=== PATIENT | male | born 1970 | race African-American/Black ===

== ENCOUNTER → 2016-05-25 | Outpatient (CLI) | payer OTHER ==
[2016-05-25 17:06] LABS: CH 29.6; CHCM 32.9; HCT 42.7 % (39.0-53.0); HDW 2.46; HGB 13.9 gm/dL (13.0-17.5); MCH 29.5 pg (25.0-35.0); MCHC 32.7 g/dL (31.0-37.0); MCV 90.3 fL (80.0-100.0); Mean Platelet Volume 8.4; RBC 4.73 m/uL (4.30-5.90); WBC 4.4 k/uL (3.8-10.6); WBC (Perox) 4.43
[2016-05-25 17:16] LABS: ALT 25 U/L (21-72); AST 20 U/L (17-59); Alkaline Phosphatase 68 U/L (38-126); Anion Gap 10 mmol/L; Blood Urea Nitrogen 20 mg/dL (9-20); Calcium 9.1 mg/dL (8.4-10.2); Carbon Dioxide 29 mmol/L (22-30); Chloride 102 mmol/L (98-107); Glucose 81 mg/dL (74-99); Non-African American GFR(MDRD) 59 (>60 ml/min/1.73 sqM); Potassium 4.4 mmol/L (3.5-5.1); Sodium 141 mmol/L (137-145); Total Bilirubin 0.8 mg/dL (0.2-1.3); Total Protein 7.5 g/dL (6.3-8.2)
[2016-05-25 18:04] LABS: Add Differential Manual Differential
[2016-05-25 18:07] LABS: Manual Review Performed; Nucleated Red Blood Cells 0 /100 WBC (0-0); Polychromasia Present; Total Cells Counted 100
[2016-05-28 14:22] LABS: LOG HIV Copies/mL <1.60 (<1.60)
== END ==
LOC: LABWHC1 16:23
PROVIDERS: ATTEND Internal Medicine Infectious Disease
DX: B20 Human immunodeficiency virus [HIV] disease (principal)
CPT/HCPCS: 36415; 80053; 85025; 86360; 87536

== ENCOUNTER → 2017-04-03 | Outpatient (CLI) | payer MEDICARE, OTHER ==
[2017-04-03 18:00] LABS: HCT 41.7 % (39.0-53.0); HGB 13.6 gm/dL (13.0-17.5); MCH 29.6 pg (25.0-35.0); MCHC 32.5 g/dL (31.0-37.0); Mean Platelet Volume 8.5; Platelet Count 192 k/uL (150-450); RBC 4.58 m/uL (4.30-5.90); RDW 12.8 % (11.5-15.5); WBC 3.9 k/uL (3.8-10.6)
[2017-04-03 18:16] LABS: ALT 31 U/L (21-72); AST 25 U/L (17-59); Albumin 4.4 g/dL (3.5-5.0); Alkaline Phosphatase 70 U/L (38-126); Anion Gap 12 mmol/L; Blood Urea Nitrogen 18 mg/dL (9-20); Calcium 9.5 mg/dL (8.4-10.2); Carbon Dioxide 29 mmol/L (22-30); Chloride 101 mmol/L (98-107); Cholesterol 181 mg/dL (<200); Glucose 91 mg/dL (74-99); HDL Cholesterol 45 mg/dL (40-60); LDL Cholesterol,Calculated 106 mg/dL (0-99); Magnesium 2.1 mg/dL (1.6-2.3); Phosphorus 3.8 mg/dL (2.5-4.5); Potassium 4.4 mmol/L (3.5-5.1); Sodium 142 mmol/L (137-145); Total Bilirubin 0.5 mg/dL (0.2-1.3); Total Protein 7.4 g/dL (6.3-8.2); Triglycerides 149 mg/dL (<150)
[2017-04-03 18:18] LABS: Partial Thromboplastin Time 24.8 sec (22.0-30.0); Prothrombin Time 9.8 sec (9.0-12.0)
[2017-04-04 01:16] LABS: Iron Saturation 25.67 (15.00-50.00)
[2017-04-04 01:30] LABS: Vitamin D 25 Hydroxy 17.2 ng/mL (30.0-100.0)
[2017-04-04 01:38] LABS: Folate, Serum 10.7 ng/mL
[2017-04-04 03:59] LABS: Hemoglobin A1C 5.6 % (4.0-6.0)
[2017-04-05 17:04] LABS: Zinc, Serum 62 ug/dL (60-130)
[2017-04-06 18:59] LABS: Selenium 119 mcg/L (63-160)
[2017-04-08 09:26] LABS: Vitamin A 55 ug/dL (38-106)
[2017-04-08 10:04] LABS: Vitamin B1 42 ug/L (38-122)
== END | disposition home or self-care (01) ==
LOC: LABWHC1 17:02
PROVIDERS: ATTEND Surgery Plastic and Reconstructive Surgery
DX: E21.1 Secondary hyperparathyroidism, not elsewhere classified (principal); E89.1 Postprocedural hypoinsulinemia; D50.9 Iron deficiency anemia, unspecified; K90.9 Intestinal malabsorption, unspecified; E44.0 Moderate protein-calorie malnutrition; E55.9 Vitamin D deficiency, unspecified; K74.1 Hepatic sclerosis; N19 Unspecified kidney failure; K50.90 Crohn's disease, unspecified, without complications; E66.01 Morbid (severe) obesity due to excess calories
CPT/HCPCS: 36415; 80053; 80061; 82306; 82525; 82607; 82728; 82746; 83036; 83540; 83550; 83735; 83970; 84100; 84134; 84255; 84425; 84443; 84590; 84630; 85027; 85610; 85730; 99211

== ENCOUNTER → 2017-04-03 | Outpatient (CLI) | payer MEDICARE, OTHER ==
[2017-04-03 16:35] VITALS: BP 125/71; PULSE 82; RESP 16; TEMP 97.8; BMI 45.8
--- NOTE | 2017-05-05 20:50 | P.PN ---
Subjective Progress Note Date: 04/03/17 DATE OF SERVICE: 04/03/2017 CHIEF COMPLAINT: Follow-up sleeve gastrectomy. HISTORY OF PRESENT ILLNESS: Yoseph Morillo is a 46-year-old gentleman who is status post sleeve gastrectomy from March 02 2015. He is over 2 years out. He has been placed on multiple medications to address his mood and depression and now has caused weight gain. He denies abdominal pain. He is very disappointed with his weight gain. He presents for further evaluation and management. He reports deviating from his bariatric diet. At his height of 5 foot 7 and a half inches, his ideal body weight is 158 pounds. His highest weight was 362 pounds. He now comes in weighing 296 pounds. He has gained 35 pounds in over 1 year. Lifetime weight loss decreased to 66 pounds. Percent excess weight loss of 32%. Initial body mass index was 55.7, and body mass index is down to 45.8. PAST MEDICAL HISTORY: 1. HIV positive. 2. Panniculitis. 3. Chronic constipation. 4. Asthma. 5. Neuropathy. 6. Chronic pain syndrome. 7. Hypertension. 8. Depression 9. History of Budd-Chiari syndrome. 10. Morbid obesity, initial BMI 56.0. 11. Gastroesophageal reflux disease PAST SURGICAL HISTORY: 1. Laparoscopic cholecystectomy. 2. Upper endoscopy. 3. History of back surgery. 4. Surgical history of the neck for Budd-Chiari syndrome. 5. Laparoscopic bilateral inguinal hernia repair. 6. Status post sleeve gastrectomy. 7. Upper endoscopy with balloon dilatation. MEDICATIONS: 1. Cardura. 2. Singulair. 3. Tramadol. 4. Amlodipine. 5. Flomax. 6. Lyrica. 7. Bactroban. 8. DuoNeb. 9. Flonase. 10. Colace. 11. Voltaren. 12. Citalopram. 13. Calcium. 14. Baclofen. 15. Ventolin inhaler. 16. Tylenol. 17. MiraLax. ALLERGIES: BACITRACIN, HYDROCORTISONE, NEOMYCIN, PENICILLIN, POLYMYCIN. SOCIAL HISTORY: Lifelong nontobacco user. FAMILY HISTORY: Denies any family history of gastrointestinal malignancies. Denies any lupus in his family. Denies any DVT or pulmonary embolism. REVIEW OF SYSTEMS: CONSTITUTIONAL: At his height of 5 foot 7 and a half inches, his ideal body weight is 158 pounds. His highest weight was 362 pounds. He now comes in weighing 296 pounds. He has gained 35 pounds in over 1 year. Lifetime weight loss decreased to 66 pounds. Percent excess weight loss of 32%. Initial body mass index was 55.7, and body mass index is down to 45.8. GASTROINTESTINAL: No dumping syndrome. Reports chronic constipation. MUSCULOSKELETAL: Moderate improvement of diffuse joint pain including back pain. CARDIOVASCULAR: No chest pain. No heart attacks. HEENT: Chronic sinusitis. No troubles with vision or hearing. ENDOCRINE: He has secondary hyperparathyroidism. No diabetes. No thyroid disorder. HEENT: Denies any active trouble with vision or hearing. RESPIRATORY: Has dyspnea on exertion. Also reports possible sleep apnea. No reports of using CPAP machine. NEURO: Also has history of neuropathy. Denies any stroke or seizure disorders. PSYCH: Has depression. Has chronic pain syndrome. HEMATOLOGIC: Denies any easy bruising or bleeding. Denies any DVTs or pulmonary embolisms. SKIN: Has chronic panniculitis. No skin cancer. PHYSICAL EXAM: VITAL SIGNS: 296 pounds. Body mass index 45.8. Vital Signs Temp 97.8 F 04/03/17 16:33 Pulse 82 04/03/17 16:33 Resp 16 04/03/17 16:33 BP 125/71 04/03/17 16:33 Pulse Ox ABDOMEN: Soft, nontender, without palpable incisional hernia. GENERAL: Well-developed male in no acute distress. MUSCULOSKELETAL: No clubbing, cyanosis, or edema. NEURO: No focal or lateralizing signs. Cranial nerves II through XII grossly intact. HEENT: No sclerae icterus. Extraocular movements are grossly intact. Moist buccal mucosa. NECK: Neck supple. No lymphadenopathy. CHEST: Normal respirations and bilateral excursions. CARDIOVASCULAR: Regular rate and rhythm. PSYCH: Appropriate affect. Alert and oriented to person, place and time. SKIN: Well perfused. Good skin turgor. Moderate skin elastosis along the arms and abdomen. ASSESSMENT: 1. Morbid obesity due to excess caloric intake. 2. Body mass index is reduced from 56 down to 45.8. 3. Status post sleeve gastrectomy. 4. Weight gain following bariatric procedure. 5. Osteomalacia of lower back. 6. Degenerative joint disease of the lower back. 7. Secondary hyperparathyroidism. 8. Sinusitis. 9. History of obstructive sleep apnea, improved. 10. Hypertensive heart disease without cardiomyopathy, improved. 11. Depressive disorder without acute psychosis, improved. 12. History of HIV positive serology. 13. Osteoarthritis of the lower back secondary to morbid obesity, improved. 14. Osteoarthritis of bilateral knees secondary to morbid obesity, improved. 15. Chronic obstructive pulmonary disease secondary to asthma. 16. Chronic constipation. 17. Skin elastosis. PLAN: 1. On review of his medications, lyrica and citalopram puts him at risk for weight gain. 2. Recommend 2 week high-protein low caloric diet of 800 kcal. 3. He is concerned about moderate skin elastosis however along the arms and breasts is cosmetic. 4. Additional MiraLAX written for chronic constipation. 5. Bariatric metabolic panel advised. 6. Follow-up in 2-3 weeks. Objective - Vital Signs Vital signs: Vital Signs Temp 97.8 F 04/03/17 16:33 Pulse 82 04/03/17 16:33 Resp 16 04/03/17 16:33 BP 125/71 04/03/17 16:33 Pulse Ox Intake & Output 04/02/17 04/03/17 04/03/17 18:59 06:59 18:59 Weight 134.717 kg
== END | disposition home or self-care (01) ==
LOC: BARWHC3 15:33
PROVIDERS: ATTEND Surgery Plastic and Reconstructive Surgery
DX: Z09 Encounter for follow-up examination after completed treatment for conditions other than malignant neoplasm (principal); E66.01 Morbid (severe) obesity due to excess calories; M83.9 Adult osteomalacia, unspecified; M19.90 Unspecified osteoarthritis, unspecified site; N25.81 Secondary hyperparathyroidism of renal origin; J32.9 Chronic sinusitis, unspecified; G47.33 Obstructive sleep apnea (adult) (pediatric); I11.9 Hypertensive heart disease without heart failure; F32.9 Major depressive disorder, single episode, unspecified; M17.0 Bilateral primary osteoarthritis of knee; J44.9 Chronic obstructive pulmonary disease, unspecified; K59.09 Other constipation; L57.8 Other skin changes due to chronic exposure to nonionizing radiation; M79.3 Panniculitis, unspecified; G62.9 Polyneuropathy, unspecified; G89.4 Chronic pain syndrome; K21.9 Gastro-esophageal reflux disease without esophagitis; Z79.891 Long term (current) use of opiate analgesic; Z79.899 Other long term (current) drug therapy; Z98.84 Bariatric surgery status; Z86.718 Personal history of other venous thrombosis and embolism; Z21 Asymptomatic human immunodeficiency virus [HIV] infection status; Z68.42 Body mass index [BMI] 45.0-49.9, adult; Z79.51 Long term (current) use of inhaled steroids; Z88.0 Allergy status to penicillin
CPT/HCPCS: 99211

== ENCOUNTER → 2017-04-17 | Outpatient (CLI) | payer MEDICARE, OTHER ==
[2017-04-17 15:21] VITALS: BP 125/71; PULSE 59; RESP 16; TEMP 98.3; BMI 45.4
--- NOTE | 2017-05-05 20:56 | P.PN ---
Subjective Progress Note Date: 04/17/17 DATE OF SERVICE: 04/17/2017 CHIEF COMPLAINT: Follow-up sleeve gastrectomy. HISTORY OF PRESENT ILLNESS: Yoseph Morillo is a 46-year-old gentleman who is status post sleeve gastrectomy from March 02 2015. He is over 2 years out. Since his follow-up 2 weeks ago, he was asked to start a 2 week high-protein low caloric diet. He comes in with barely 2 pound weight loss. No further reports of abdominal pain. No gastroesophageal reflux disease. At his height of 5 foot 7 and a half inches, his ideal body weight is 158 pounds. His highest weight was 362 pounds. He now comes in weighing 294 pounds. He has lost 2 pounds in 2 weeks. Lifetime weight loss 68 pounds. Percent excess weight loss of 33%. Initial body mass index was 55.7, and body mass index is down to 45.4. PAST MEDICAL HISTORY: 1. HIV positive. 2. Panniculitis. 3. Chronic constipation. 4. Asthma. 5. Neuropathy. 6. Chronic pain syndrome. 7. Hypertension. 8. Depression 9. History of Budd-Chiari syndrome. 10. Morbid obesity, initial BMI 56.0. 11. Gastroesophageal reflux disease PAST SURGICAL HISTORY: 1. Laparoscopic cholecystectomy. 2. Upper endoscopy. 3. History of back surgery. 4. Surgical history of the neck for Budd-Chiari syndrome. 5. Laparoscopic bilateral inguinal hernia repair. 6. Status post sleeve gastrectomy. 7. Upper endoscopy with balloon dilatation. MEDICATIONS: 1. Cardura. 2. Singulair. 3. Tramadol. 4. Amlodipine. 5. Flomax. 6. Lyrica. 7. Bactroban. 8. DuoNeb. 9. Flonase. 10. Colace. 11. Voltaren. 12. Citalopram. 13. Calcium. 14. Baclofen. 15. Ventolin inhaler. 16. Tylenol. 17. MiraLax. ALLERGIES: BACITRACIN, HYDROCORTISONE, NEOMYCIN, PENICILLIN, POLYMYCIN. SOCIAL HISTORY: Lifelong nontobacco user. FAMILY HISTORY: Denies any family history of gastrointestinal malignancies. Denies any lupus in his family. Denies any DVT or pulmonary embolism. REVIEW OF SYSTEMS: CONSTITUTIONAL: At his height of 5 foot 7 and a half inches, his ideal body weight is 158 pounds. His highest weight was 362 pounds. He now comes in weighing 296 pounds. He has gained 33 pounds in over 1 year. Lifetime weight loss decreased to 68 pounds. Percent excess weight loss of 33%. Initial body mass index was 55.7, and body mass index is down to 45.4. GASTROINTESTINAL: No dumping syndrome. Reports chronic constipation. MUSCULOSKELETAL: Moderate improvement of diffuse joint pain including back pain. CARDIOVASCULAR: No chest pain. No heart attacks. HEENT: Chronic sinusitis. No troubles with vision or hearing. ENDOCRINE: He has secondary hyperparathyroidism. No diabetes. No thyroid disorder. HEENT: Denies any active trouble with vision or hearing. RESPIRATORY: Has dyspnea on exertion. Also reports possible sleep apnea. No reports of using CPAP machine. NEURO: Also has history of neuropathy. Denies any stroke or seizure disorders. PSYCH: Has depression. Has chronic pain syndrome. HEMATOLOGIC: Denies any easy bruising or bleeding. Denies any DVTs or pulmonary embolisms. SKIN: Has chronic panniculitis. No skin cancer. PHYSICAL EXAM: VITAL SIGNS: 294 pounds. Body mass index 45.4. Vital Signs Temp 98.3 F 04/17/17 18:00 Pulse 59 L 04/17/17 18:00 Resp 16 04/17/17 18:00 BP 125/71 04/17/17 18:00 Pulse Ox ABDOMEN: Soft, nontender, without palpable incisional hernia. GENERAL: Well-developed male in no acute distress. MUSCULOSKELETAL: No clubbing, cyanosis, or edema. NEURO: No focal or lateralizing signs. Cranial nerves II through XII grossly intact. HEENT: No sclerae icterus. Extraocular movements are grossly intact. Moist buccal mucosa. NECK: Neck supple. No lymphadenopathy. CHEST: Normal respirations and bilateral excursions. CARDIOVASCULAR: Regular rate and rhythm. PSYCH: Appropriate affect. Alert and oriented to person, place and time. SKIN: Well perfused. Good skin turgor. Moderate skin elastosis along the arms and abdomen. Laboratory Last Values WBC 3.9 k/uL (3.8-10.6) 04/03/17 17:06 RBC 4.58 m/uL (4.30-5.90) 04/03/17 17:06 Hgb 13.6 gm/dL (13.0-17.5) 04/03/17 17:06 Hct 41.7 % (39.0-53.0) 04/03/17 17:06 MCV 91.0 fL (80.0-100.0) 04/03/17 17:06 MCH 29.6 pg (25.0-35.0) 04/03/17 17:06 MCHC 32.5 g/dL (31.0-37.0) 04/03/17 17:06 RDW 12.8 % (11.5-15.5) 04/03/17 17:06 Plt Count 192 k/uL (150-450) 04/03/17 17:06 PT 9.8 sec (9.0-12.0) 04/03/17 17:06 INR 1.0 (<1.2) 04/03/17 17:06 APTT 24.8 sec (22.0-30.0) 04/03/17 17:06 Sodium 142 mmol/L (137-145) 04/03/17 17:06 Potassium 4.4 mmol/L (3.5-5.1) 04/03/17 17:06 Chloride 101 mmol/L (98-107) 04/03/17 17:06 Carbon Dioxide 29 mmol/L (22-30) 04/03/17 17:06 Anion Gap 12 mmol/L 04/03/17 17:06 BUN 18 mg/dL (9-20) 04/03/17 17:06 Creatinine 1.30 mg/dL (0.66-1.25) H 04/03/17 17:06 Est GFR (MDRD) Af Amer >60 (>60 ml/min/1.73 sqM) 04/03/17 17:06 Est GFR (MDRD) Non-Af 59 (>60 ml/min/1.73 sqM) 04/03/17 17:06 Glucose 91 mg/dL (74-99) 04/03/17 17:[address] Glu mg/dL 114 04/03/17 17:06 Hemoglobin A1c 5.6 % (4.0-6.0) 04/03/17 17:06 Calcium 9.5 mg/dL (8.4-10.2) 04/03/17 17:06 Phosphorus 3.8 mg/dL (2.5-4.5) 04/03/17 17:06 Magnesium 2.1 mg/dL (1.6-2.3) 04/03/17 17:06 Iron 86 ug/dL (65-175) 04/03/17 17:06 TIBC 335 ug/dL (228-460) 04/03/17 17:06 Iron Saturation 25.67 (15.00-50.00) 04/03/17 17:06 Ferritin 166.3 ng/mL (22.0-322.0) 04/03/17 17:06 Total Bilirubin 0.5 mg/dL (0.2-1.3) 04/03/17 17:06 AST 25 U/L (17-59) 04/03/17 17:06 ALT 31 U/L (21-72) 04/03/17 17:06 Alkaline Phosphatase 70 U/L (38-126) 04/03/17 17:06 Total Protein 7.4 g/dL (6.3-8.2) 04/03/17 17:06 Albumin 4.4 g/dL (3.5-5.0) 04/03/17 17:06 Prealbumin 30.0 mg/dL (18.0-42.0) 04/03/17 17:06 Triglycerides 149 mg/dL (<150) 04/03/17 17:06 Cholesterol 181 mg/dL (<200) 04/03/17 17:06 LDL Cholesterol, Calc 106 mg/dL (0-99) H 04/03/17 17:06 HDL Cholesterol 45 mg/dL (40-60) 04/03/17 17:06 Vitamin A 55 ug/dL (38-106) 04/03/17 17:06 Vitamin B1 42 ug/L (38-122) 04/03/17 17:06 Vitamin B12 346.0 pg/mL (200.0-944.0) 04/03/17 17:06 Vitamin D 25-Hydroxy 17.2 ng/mL (30.0-100.0) L 04/03/17 17:06 Folate 10.7 ng/mL 04/03/17 17:06 TSH 1.790 mIU/L (0.465-4.680) 04/03/17 17:06 PTH Intact 71.0 pg/mL (14.0-72.0) 04/03/17 17:06 Copper 1064 ug/L (665-1480) 04/03/17 17:06 Selenium 119 mcg/L (63-160) 04/03/17 17:06 Zinc 62 ug/dL (60-130) 04/03/17 17:06 Low vitamin D. Creatinine elevated. ASSESSMENT: 1. Morbid obesity due to excess caloric intake. 2. Body mass index is reduced from 56 down to 45.4. 3. Status post sleeve gastrectomy. 4. Weight gain following bariatric procedure. 5. Osteomalacia of lower back. 6. Degenerative joint disease of the lower back. 7. Secondary hyperparathyroidism. 8. Sinusitis. 9. History of obstructive sleep apnea, improved. 10. Hypertensive heart disease without cardiomyopathy, improved. 11. Depressive disorder without acute psychosis, improved. 12. History of HIV positive serology. 13. Osteoarthritis of the lower back secondary to morbid obesity, improved. 14. Osteoarthritis of bilateral knees secondary to morbid obesity, improved. 15. Chronic obstructive pulmonary disease secondary to asthma. 16. Chronic constipation. 17. Skin elastosis. 18. Vitamin D deficiency. PLAN: 1. I have asked him to follow the diet plan as close as possible to achieve weight loss. 2. Bariatric last reviewed demonstrating vitamin D deficiency. Vitamin D supplement advised. 3. Recommend structure diet with bariatric dietitian. Objective - Vital Signs Vital signs: Vital Signs Temp 98.3 F 04/17/17 15:18 Pulse 59 L 04/17/17 15:18 Resp 16 04/17/17 15:18 BP 125/71 04/17/17 15:18 Pulse Ox Intake & Output 04/16/17 04/17/17 04/17/17 18:59 06:59 18:59 Weight 133.583 kg
== END | disposition home or self-care (01) ==
LOC: BARWHC3 14:46
PROVIDERS: ATTEND Surgery Plastic and Reconstructive Surgery
DX: E66.01 Morbid (severe) obesity due to excess calories (principal); M19.90 Unspecified osteoarthritis, unspecified site; N25.81 Secondary hyperparathyroidism of renal origin; J32.9 Chronic sinusitis, unspecified; I11.9 Hypertensive heart disease without heart failure; F32.9 Major depressive disorder, single episode, unspecified; J44.9 Chronic obstructive pulmonary disease, unspecified; K59.09 Other constipation; M17.0 Bilateral primary osteoarthritis of knee; E55.9 Vitamin D deficiency, unspecified; L57.8 Other skin changes due to chronic exposure to nonionizing radiation; Z87.09 Personal history of other diseases of the respiratory system; Z86.2 Personal history of diseases of the blood and blood-forming organs and certain disorders involving the immune mechanism; Z68.42 Body mass index [BMI] 45.0-49.9, adult; Z88.1 Allergy status to other antibiotic agents; Z88.0 Allergy status to penicillin; Z88.8 Allergy status to other drugs, medicaments and biological substances; Z79.899 Other long term (current) drug therapy; Z79.891 Long term (current) use of opiate analgesic; Z79.2 Long term (current) use of antibiotics; Z79.51 Long term (current) use of inhaled steroids; Z79.1 Long term (current) use of non-steroidal anti-inflammatories (NSAID); Z90.49 Acquired absence of other specified parts of digestive tract
CPT/HCPCS: 99211

== ENCOUNTER → 2017-05-15 | Outpatient (CLI) | payer MEDICARE, OTHER ==
[2017-05-15 16:58] VITALS: BP 131/78; PULSE 62; RESP 16; TEMP 98.4; BMI 46.0
--- NOTE | 2017-06-28 10:12 | P.PN ---
Subjective Progress Note Date: 05/15/17 DATE OF SERVICE: 05/15/2017 CHIEF COMPLAINT: Follow-up sleeve gastrectomy. HISTORY OF PRESENT ILLNESS: Yoseph Morillo is a 46-year-old gentleman who is status post sleeve gastrectomy from March 02 2015. He is over more than 2 years out. At his height of 5 foot 7 and a half inches, his ideal body weight is 158 pounds. His highest weight was 362 pounds. He now comes in weighing 298 pounds. He has gained 4 pounds in 1 month. Lifetime weight loss 64 pounds. Percent excess weight loss of 31%. Initial body mass index was 56.0 and body mass index is down to 46.0. Since his recent follow-up, he continues to gain weight. He still reports eating cakes and cookies. He also reports skipping meals. He has occasional epigastric abdominal pain including increased eructation. He has not been using his food diary journal. PAST MEDICAL HISTORY: 1. HIV positive. 2. Panniculitis. 3. Chronic constipation. 4. Asthma. 5. Neuropathy. 6. Chronic pain syndrome. 7. Hypertension. 8. Depression 9. History of Budd-Chiari syndrome. 10. Morbid obesity, initial BMI 56.0. 11. Gastroesophageal reflux disease 12. Obstructive sleep apnea PAST SURGICAL HISTORY: 1. Laparoscopic cholecystectomy. 2. Upper endoscopy. 3. History of back surgery. 4. Surgical history of the neck for Budd-Chiari syndrome. 5. Laparoscopic bilateral inguinal hernia repair. 6. Status post sleeve gastrectomy. 7. Upper endoscopy with balloon dilatation. MEDICATIONS: 1. Cardura. 2. Singulair. 3. Tramadol. 4. Amlodipine. 5. Flomax. 6. Lyrica. 7. Bactroban. 8. DuoNeb. 9. Flonase. 10. Colace. 11. Voltaren. 12. Citalopram. 13. Calcium. 14. Baclofen. 15. Ventolin inhaler. 16. Tylenol. 17. MiraLax. ALLERGIES: BACITRACIN, HYDROCORTISONE, NEOMYCIN, PENICILLIN, POLYMYCIN. SOCIAL HISTORY: Lifelong nontobacco user. FAMILY HISTORY: Denies any family history of gastrointestinal malignancies. Denies any lupus in his family. Denies any DVT or pulmonary embolism. REVIEW OF SYSTEMS: CONSTITUTIONAL: At his height of 5 foot 7 and a half inches, his ideal body weight is 158 pounds. His highest weight was 362 pounds. He now comes in weighing 298 pounds. He has gained 4 pounds in 1 month. Lifetime weight loss 64 pounds. Percent excess weight loss of 31%. Initial body mass index was 56.0 and body mass index is down to 46.0. GASTROINTESTINAL: No dumping syndrome. No diarrhea. MUSCULOSKELETAL: Moderate improvement of diffuse joint pain including back pain. CARDIOVASCULAR: No chest pain. No heart attacks. HEENT: Chronic sinusitis. No troubles with vision or hearing. ENDOCRINE: He has secondary hyperparathyroidism. No diabetes. No thyroid disorder. HEENT: Denies any active trouble with vision or hearing. RESPIRATORY: Has sleep apnea. Not using CPAP machine. NEURO: Also has history of neuropathy. Denies any stroke or seizure disorders. PSYCH: Has depression. Has chronic pain syndrome. HEMATOLOGIC: Denies any easy bruising or bleeding. Denies any DVTs or pulmonary embolisms. SKIN: Has chronic panniculitis. No skin cancer. PHYSICAL EXAM: VITAL SIGNS: 298 pounds. Body mass index 46.0 Vital Signs Temp 98.4 F 05/15/17 17:15 Pulse 62 05/15/17 17:15 Resp 16 05/15/17 17:15 BP 131/78 05/15/17 17:15 Pulse Ox ABDOMEN: Soft, nontender, without palpable incisional hernia. GENERAL: Well-developed male in no acute distress. MUSCULOSKELETAL: No clubbing, cyanosis, or edema. NEURO: No focal or lateralizing signs. Cranial nerves II through XII grossly intact. HEENT: No sclerae icterus. Extraocular movements are grossly intact. Moist buccal mucosa. NECK: Neck supple. No lymphadenopathy. CHEST: Normal respirations and bilateral excursions. CARDIOVASCULAR: Regular rate and rhythm. PSYCH: Appropriate affect. Alert and oriented to person, place and time. SKIN: Well perfused. Good skin turgor. Moderate skin elastosis along the arms and chest. ASSESSMENT: 1. Morbid obesity due to excess caloric intake. 2. Body mass index is reduced from 56 down to 46.0. 3. Status post sleeve gastrectomy. 4. Weight gain following bariatric procedure. 5. Secondary hyperparathyroidism. 6. Sinusitis. 7. History of obstructive sleep apnea. 8. Hypertensive heart disease without cardiomyopathy. 9. Depressive disorder without acute psychosis 10. History of HIV positive serology. 11. Osteoarthritis of the lower back secondary to morbid obesity 12. Osteoarthritis of bilateral knees secondary to morbid obesity 13. Chronic obstructive pulmonary disease secondary to asthma. 14. Skin elastosis. 15. Vitamin D deficiency. 16. Panniculitis 17. Skin elastosis 18. Noncompliance to bariatric diet 19. Gastroesophageal reflux disease PLAN: 1. He still reports epigastric abdominal pain and has previous history of esophageal reflux disease. Recommend upper endoscopy. 2. He has overall noncompliance to his bariatric diet. Again he is reemphasized to use food journal to track his intake. 3. With incision his panniculitis, recommend nystatin powder. 4. Recommend close follow-up in 1 month for dietary surveillance and counseling. Objective - Vital Signs Vital signs: Vital Signs Temp 98.4 F 05/15/17 16:55 Pulse 62 05/15/17 16:55 Resp 16 05/15/17 16:55 BP 131/78 05/15/17 16:55 Pulse Ox Intake & Output 05/14/17 05/15/17 05/15/17 18:59 06:59 18:59 Weight 135.341 kg
== END | disposition home or self-care (01) ==
LOC: BARWHC3 14:48
PROVIDERS: ATTEND Surgery Plastic and Reconstructive Surgery
DX: Z48.815 Encounter for surgical aftercare following surgery on the digestive system (principal); M10.9 Gout, unspecified; E66.01 Morbid (severe) obesity due to excess calories; N25.81 Secondary hyperparathyroidism of renal origin; J32.9 Chronic sinusitis, unspecified; G47.33 Obstructive sleep apnea (adult) (pediatric); I11.9 Hypertensive heart disease without heart failure; F32.9 Major depressive disorder, single episode, unspecified; G89.4 Chronic pain syndrome; M47.9 Spondylosis, unspecified; M17.0 Bilateral primary osteoarthritis of knee; J44.9 Chronic obstructive pulmonary disease, unspecified; K21.9 Gastro-esophageal reflux disease without esophagitis; E55.9 Vitamin D deficiency, unspecified; M79.3 Panniculitis, unspecified; Z90.49 Acquired absence of other specified parts of digestive tract; Z79.51 Long term (current) use of inhaled steroids; Z79.899 Other long term (current) drug therapy; Z91.14 Patient's other noncompliance with medication regimen; Z79.891 Long term (current) use of opiate analgesic; Z88.0 Allergy status to penicillin; Z98.84 Bariatric surgery status; Z21 Asymptomatic human immunodeficiency virus [HIV] infection status; Z68.42 Body mass index [BMI] 45.0-49.9, adult; Z88.1 Allergy status to other antibiotic agents; Z88.8 Allergy status to other drugs, medicaments and biological substances; Z72.0 Tobacco use
CPT/HCPCS: 99211

== ENCOUNTER → 2017-05-27 | Outpatient (CLI) | payer MEDICARE, OTHER ==
--- NOTE | 2017-05-27 08:28 | CT ---
EXAMINATION TYPE: CT iac wo con DATE OF EXAM: 05/27/2017 COMPARISON: 09/27/2015 HISTORY: Unspecified hearing loss, unspecified ear CT DLP: 142.70mGycm Automated exposure control for dose reduction was used. FINDINGS: External auditory canals are symmetric. Mild thickening right tympanic membrane the left ty mpanic membrane a normal appearance. There is soft tissue within the right epitympanum and attic. The findings may reflect cholesteatoma or cholesterol granuloma. No definite destruction of the ossicula r chain. Left-sided epitympanum and attic are free of mass lesion. Postsurgical change involving the occiput noted there is prominence of the ventricular system within the intracranial structures. Findings are stable. Normal appearing left- sided ossicular chain. The right-sided mastoid air cells are hypoaerated. The aerated right- sided mastoid air cells are opacified compatible with chronic mastoiditis. Left-sided mastoid air cells are well-aerated and demonstrate normal development. No evidence for bony destructi ve process. No obvious soft tissue mass at the cerebellopontine cistern angles. Internal auditory can als are symmetric. IMPRESSION: 1. Persistent soft tissue attenuation within the right middle ear. There is no scutal erosion. Differ ential would include middle ear effusion or granulation tissue. Cholesteatoma not entirely excluded c orrelate clinically. Findings are stable. 2. Chronic right-sided mastoiditis.
== END | disposition home or self-care (01) ==
LOC: RADCTMAIN 07:06
PROVIDERS: ATTEND Otolaryngology
DX: H70.11 Chronic mastoiditis, right ear (principal); H70.91 Unspecified mastoiditis, right ear
CPT/HCPCS: 70480

== ENCOUNTER → 2017-06-06 | Outpatient (CLI) | payer MEDICARE, OTHER ==
--- NOTE | 2017-06-06 16:58 | CONS ---
CONSULTATION DATE OF SERVICE: 06/06/2017 46-year-old gentleman who has been [facility]uated [facility] for obstructive sleep apnea-hypopnea syndrome. HISTORY OF PRESENT ILLNESS/SLEEP WAKE EVALUATION: Patient has been diagnosed with obstructive sleep apnea in 2014 and at that time, he was recommended to have a CPAP treatment with the pressure of 6 cm of water. Patient trying to use CPAP equipment, but presently because of significant leak from his mask and he has difficulties with that, his sleep schedule from around 2:30 a.m. until 8:30 a.m. He does have problem with falling asleep, although no TV in the bedroom. He usually sleeps on the side position. He wakes up from sleep with nocturia, panic attack, heartburn, grinding teeth. Wall Sleepiness Scale increased to 14. PAST MEDICAL HISTORY: Positive for hypertension, acid reflux, asthma, back problems. PAST SURGICAL HISTORY: Cholecystectomy. Hernia repair. Gastric sleeve surgery. REVIEW OF SYSTEMS: Patient has lost 40 pounds since previous titration. Sleepiness during the day. MEDICATIONS: Amlodipine, omeprazole, doxazosin, montelukast, tramadol, baclofen, Lyrica, citalopram, Ventolin, vitamin D supplement, Colace, albuterol. SOCIAL HISTORY: Negative for smoking or using alcohol. FAMILY HISTORY: Hypertension, heart problems, arthritis, asthma, sinus headache, sleep apnea, snoring, diabetes, acid reflux. PHYSICAL EXAM: GENERAL A 46-year-old gentleman without distress. VITAL SIGNS BP 140/77, HR 54, RR 16, height 5 feet 7-1/2, weight 296.8, BMI 45.6. Neck 18-1/8 inches in circumference. Temperature 97.5. Oxygen saturation on room air 95%. HEENT PERRLA, EOMI, evaluation of oropharynx showed moderately low position of soft palate. Significant restriction of nasal breathing bilaterally. NECK Supple, no JVD. Thyroid is not palpable. LUNGS Clear to percussion and to auscultation. Good air exchange. No wheezing or rhonchi. HEART S1, S2 regular. No murmurs, gallops, or rubs. ABDOMEN Obese. Soft and nontender. Bowel sounds are present. No organomegaly appreciated. EXTREMITIES Ankles 1+ bilateral edema. No clubbing or cyanosis. [employer] Awake, alert, and oriented X3. Cranial nerves 2 to 7 intact. There is no fasciculation or atrophy. noted. No focal deficits observed. IMPRESSION: 1. Obstructive sleep apnea-hypopnea syndrome. The patient cannot use his CPAP equipment because his mask is leaking and he never changed his mask since 2014. At the same time while he used machine before he sleeps better and I did not snore according to patient. 2. Obesity, patient lost 40 pounds of weight. BMI 45.6. 3. Hypertension. 4. Acid reflux. 5. Asthma. 6. Back problems. 7. Status post cholecystectomy. 8. Status post hernia repair. 9. Status post gastric sleeve surgery in 2014. PLAN: 1. Prescription for all necessary CPAP supplies including mask, tube, filters. 2. Patient should restart using his CPAP equipment every night for the whole night. 3. Continue losing weight. 4. Sleep hygiene with regular time in bed for at least 8 hours. 5. No driving if feeling sleepiness. Sincerely, Efren Torres MD, PhD, FAASM Diplomat of [employer] [employer] [facility] [place] MMODL / LUCIN: [id number] /
== END | disposition home or self-care (01) ==
LOC: SLEEP 15:24
PROVIDERS: ATTEND Internal Medicine
DX: G47.33 Obstructive sleep apnea (adult) (pediatric) (principal); E66.9 Obesity, unspecified; I10 Essential (primary) hypertension; K21.9 Gastro-esophageal reflux disease without esophagitis; J45.909 Unspecified asthma, uncomplicated; M79.89 Other specified soft tissue disorders; Z98.890 Other specified postprocedural states; Z98.84 Bariatric surgery status; Z99.89 Dependence on other enabling machines and devices; Z79.899 Other long term (current) drug therapy; Z79.891 Long term (current) use of opiate analgesic
CPT/HCPCS: 99211

== ENCOUNTER 2017-06-20 05:49 | Day surgery (SDC) | payer MEDICARE, OTHER ==
[2017-06-14 15:55] VITALS: BMI 44.6
[~2017-06-20 05:49] MED LIST: FAMOTIDINE 20 MG/2 ML VIAL IV ONE; LACTATED RINGERS 1,000 ML IV SCH; MORPHINE SULFATE 2 MG/ML SYRINGE IV PRN; Pre Op ABX Message 1 EACH MISC MISCELLANE ONE
[2017-06-20] MEDS ORDERED: LACTATED RINGERS 1,000 ML IV ONE (06:21)
[2017-06-20] MEDS ORDERED: LIDOCAINE 1% 20 ML VIAL (10MG/ML) FOR IV START INTRADERMA ONE (06:21)
[2017-06-20] MEDS ORDERED: ONDANSETRON 4 MG/2 ML VIAL IVP ONE (06:34)
[2017-06-20] MEDS ORDERED: DEXAMETHASONE SOD PHOS (MDV) 100 MG/10 ML VIAL ONE (07:31)
[2017-06-20] MEDS ORDERED: SUCCINYLCHOLINE CHLORIDE VIAL 200 MG/10 ML VIAL IV ONE (07:31)
[2017-06-20] MEDS ORDERED: LIDOCAINE 1% INJ 10MG/ML (20 ML MDV) ONE (07:31)
[2017-06-20] MEDS ORDERED: fentaNYL (PF) 50 MCG/ML 2 ML AMP ONE (07:31)
[2017-06-20] MEDS ORDERED: PROPOFOL 10 MG/ML 20 ML VIAL IV ONE (07:31)
[2017-06-20] MEDS ORDERED: MIDAZOLAM 2 MG/2 ML VIAL ONE (07:31)
[2017-06-20] MEDS ORDERED: CIPROFLOXACIN-DEXAMETH 0.3-0.1% DROPS 7.5 ML BTL BOTH EARS ONE (07:54)
[2017-06-20 08:17] VITALS: RESP 16
[2017-06-20 08:18] VITALS: TEMP 96.9
--- NOTE | 2017-06-20 08:18 | P.OP ---
Date of Procedure: 06/20/17 Preoperative Diagnosis: Chronic otitis media with effusion, bilateral Chronic right mastoiditis Retraction pocket right side Conductive hearing loss Postoperative Diagnosis: Same Procedure(s) Performed: Bilateral direct microscopic tympanostomy and tube placement utilizing triune tubes Anesthesia: RUTHY Surgeon: Miko Owen Estimated Blood Loss (ml): 0 Pathology: none sent Condition: stable Disposition: PACU Indications for Procedure: This patient presents to the office with chronic otitis media with effusion conductive hearing loss. He was seen at the [facility] and had have a general anesthetic for ear cleanings over the last years. When he was seen in the office he had severe retraction with a retraction pocket on the right. CAT scan was performed demonstrating right mastoiditis. We talked about treatment options and he wished to proceed forward with tube placement to see if this could correct his issues. If not he understands a right mastoidectomy is recommended. Operative Findings: Bilateral tympanic membranes retracted. Tympana no sclerosis is noted. Right- sided his severe atrophia. Retraction pocket seen on the right. Description of Procedure: Prior to surgery, all risks, benefits, and alternative therapies were discussed again with the patient and family. Risks of bleeding, need for second tubes, perforation, early extrusion of tubes, etc. etc. were explained. All questions were answered and a consent was obtained. This patient was taken to the operative room and placed in the supine position. Mask inhalation anesthesia was performed by the department of anesthesia. The patient was monitored throughout the entire case by the department of anesthesia. Both tympanic membranes were visualized with an operating Zeiss microscope. Cerumen and epithelial debris was removed from the external auditory canals bilaterally. The tympanic membranes were visualized under an operative microscope. Tympanostomy incisions were made inferiorly. Fluid was suctioned from the middle ear space with use of a #3 and #5 Monteiro suction with care to avoid any trauma to the middle ear structures. Ventilation tubes were then inserted bilaterally. We utilized triune tubes. The left tympanic membrane shows tympanosclerosis. The right tympanic membrane showed severe atrophic changes. Retraction pocket on the right is noted. Excellent placement was obtained. The patient was then taken to the recovery room in excellent condition by the department of anesthesia and monitored through the recovery process by the recovery room nurse supervised by anesthesia. A follow-up appointment has been scheduled.
[2017-06-20 09:31] VITALS: BP 155/83; PULSE 53
== END 2017-06-20 09:59 | disposition home or self-care (01) ==
LOC: OR 05:49
PROVIDERS: ATTEND Otolaryngology
DX: H65.493 Other chronic nonsuppurative otitis media, bilateral (principal); H73.891 Other specified disorders of tympanic membrane, right ear; H74.02 Tympanosclerosis, left ear; H70.11 Chronic mastoiditis, right ear; H90.6 Mixed conductive and sensorineural hearing loss, bilateral; I11.9 Hypertensive heart disease without heart failure; J45.909 Unspecified asthma, uncomplicated; G47.33 Obstructive sleep apnea (adult) (pediatric); K21.9 Gastro-esophageal reflux disease without esophagitis; E66.9 Obesity, unspecified; Z68.41 Body mass index [BMI] 40.0-44.9, adult; Z98.84 Bariatric surgery status; Z79.2 Long term (current) use of antibiotics; Z79.51 Long term (current) use of inhaled steroids; Z79.891 Long term (current) use of opiate analgesic; Z79.899 Other long term (current) drug therapy; Z88.0 Allergy status to penicillin; Z91.09 Other allergy status, other than to drugs and biological substances
CPT/HCPCS: 69436; J2250; J0330; J2405; J2001; J3010; J1100; J2704

== ENCOUNTER → 2017-08-09 | Outpatient (CLI) | payer MEDICARE, OTHER ==
--- NOTE | 2017-08-09 15:09 | MR ---
EXAMINATION TYPE: MR lumbar spine wo con DATE OF EXAM: 08/09/2017 COMPARISON: 08/12/2015 HISTORY: Low back pain TECHNIQUE: Multiplanar, multisequence images of the lumbar spine were acquired. FINDINGS: Disc desiccation is seen at L4-5 and L5-S1. Lumbar vertebral bodies maintain normal vertebr al body heights and alignment. No bone marrow edema is identified. Signal is within normal limits. Co nus medullaris is unremarkable terminating at L1. L1-L2: Normal disc appearance without desiccation. No herniation, protrusion or disc bulging. No ca nal stenosis is present. Foramina are patent bilaterally. L2-L3: Normal disc appearance without desiccation. No herniation, protrusion or disc bulging. No ca nal stenosis is present. Foramina are patent bilaterally. L3-L4: Normal disc appearance without desiccation. No herniation, protrusion or disc bulging. No ca nal stenosis is present. Foramina are patent bilaterally. L4-L5: There is a right eccentric broad-based disc bulge and facet arthropathy with posterior osteoph yte projecting off the inferior endplate of L4. These findings create moderate right neural foraminal narrowing and minimal left neural foraminal narrowing. No spinal canal stenosis. L5-S1: There is a small broad-based disc bulge present. No significant neural foraminal narrowing or spinal canal stenosis. IMPRESSION: 1. Mild degenerative disc disease at L4-5 and L5-S1. However a small posterior projecting osteophyte of the inferior endplate of L4 abuts the exiting L4 nerve root on the right. No focal disc herniation or spinal canal stenosis. 2. The previously noted small posterior central L5-S1 disc herniation appears as a disc bulge on toda y's examination with no focality.
== END | disposition home or self-care (01) ==
LOC: RADMRIMAIN 12:47
PROVIDERS: ATTEND Psychiatry & Neurology Neurology
DX: M51.27 Other intervertebral disc displacement, lumbosacral region (principal); M51.37 Other intervertebral disc degeneration, lumbosacral region; M25.78 Osteophyte, vertebrae
CPT/HCPCS: 72148

== ENCOUNTER → 2018-02-03 | Outpatient (CLI) | payer MEDICARE, OTHER ==
[2018-02-03 16:59] LABS: Basophils % (A) 1 %; Eosinophils # (A) 0.2 k/uL (0-0.7); Eosinophils % (A) 4 %; HGB 12.9 gm/dL (13.0-17.5); Lymphocytes # (A) 2.3 k/uL (1.0-4.8); Lymphocytes % (A) 51 %; MCH 30.5 pg (25.0-35.0); MCV 92.5 fL (80.0-100.0); Mean Platelet Volume 7.8; Monocytes # (A) 0.2 k/uL (0-1.0); Monocytes % (A) 5 %; Neutrophils # (A) 1.7 k/uL (1.3-7.7); Neutrophils % (A) 37 %; Platelet Count 193 k/uL (150-450); RBC 4.22 m/uL (4.30-5.90); RDW 14.1 % (11.5-15.5); WBC 4.5 k/uL (3.8-10.6)
[2018-02-04 03:55] LABS: Albumin 4.2 g/dL (3.80-4.90); Albumin/Globulin Ratio 2.21 (1.20-2.10); Anion Gap 7.6 mmol/L (4.00-12.00); Calcium 8.9 mg/dL (8.7-10.3); Carbon Dioxide 30.4 mmol/L (21.6-31.8); Globulin 1.9 g/dL (2.1-3.7); Potassium 3.9 mmol/L (3.5-5.5); Total Bilirubin 0.8 mg/dL (0.2-1.2); Total Protein 6.1 g/dL (6.2-8.2)
[2018-02-04 11:26] LABS: T4/T8 Ratio (CD4:CD8) 0.9 (1.0-3.7)
[2018-02-04 14:21] LABS: HIV-1 RNA DETECTED (Not detected); HIV-1 RNA, Quant <40 Copies/mL (<40)
== END ==
LOC: LABWHC1 16:03
PROVIDERS: ATTEND Internal Medicine Infectious Disease
DX: B20 Human immunodeficiency virus [HIV] disease (principal)
CPT/HCPCS: 36415; 80053; 85025; 86360; 87536

== ENCOUNTER → 2018-03-12 | Outpatient (CLI) | payer MEDICARE, OTHER ==
[2018-03-12 15:20] VITALS: BP 158/53; PULSE 53; RESP 16; TEMP 97.1; BMI 45.3
--- NOTE | 2018-03-12 15:58 | P.PN ---
Subjective Progress Note Date: 03/12/18 DATE OF SERVICE: 03/12/2018 CHIEF COMPLAINT: Follow-up sleeve gastrectomy. HISTORY OF PRESENT ILLNESS: Yoseph Morillo is a 47-year-old gentleman who is status post sleeve gastrectomy from March 02 2015. He is 3 years out. He reports persistent pain at his left lower back. He reports pressure along his leg after walking. He feels as if his legs are strangled after walking. He has not seen a back specialist. He reports claudication. He has kept his weight down for 1 year. No reports of gastroesophageal reflux disease. At his height of 5 foot 7 and a half inches, his ideal body weight is 158 pounds. His highest weight was 362 pounds. He now comes in weighing 293 pounds from 298 pounds, 9 months ago. He has lost 4 pounds in 9 months. Lifetime weight loss 69 pounds. Percent excess weight loss of 34%. Initial body mass index was 56.0 and body mass index is down to 45.4 PAST MEDICAL HISTORY: 1. HIV positive. 2. Panniculitis. 3. Chronic constipation. 4. Asthma. 5. Neuropathy. 6. Chronic pain syndrome. 7. Hypertension. 8. Depression 9. History of Budd-Chiari syndrome. 10. Morbid obesity, initial BMI 56.0. 11. Gastroesophageal reflux disease 12. Obstructive sleep apnea PAST SURGICAL HISTORY: 1. Laparoscopic cholecystectomy. 2. Upper endoscopy. 3. History of back surgery. 4. Surgical history of the neck for Budd-Chiari syndrome. 5. Laparoscopic bilateral inguinal hernia repair. 6. Status post sleeve gastrectomy. 7. Upper endoscopy with balloon dilatation. MEDICATIONS: 1. Cardura. 2. Singulair. 3. Tramadol. 4. Amlodipine. 5. Flomax. 6. Lyrica. 7. Bactroban. 8. DuoNeb. 9. Flonase. 10. Colace. 11. Voltaren. 12. Citalopram. 13. Calcium. 14. Baclofen. 15. Ventolin inhaler. 16. Tylenol. 17. MiraLax. ALLERGIES: BACITRACIN, HYDROCORTISONE, NEOMYCIN, PENICILLIN, POLYMYCIN. SOCIAL HISTORY: Lifelong nontobacco user. FAMILY HISTORY: Denies any family history of gastrointestinal malignancies. Denies any lupus in his family. Denies any DVT or pulmonary embolism. REVIEW OF SYSTEMS: CONSTITUTIONAL: At his height of 5 foot 7 and a half inches, his ideal body weight is 158 pounds. His highest weight was 362 pounds. Initial body mass index was 56.0 GASTROINTESTINAL: No dumping syndrome. No diarrhea. MUSCULOSKELETAL: Has diffuse joint pain including back pain. CARDIOVASCULAR: No chest pain. No heart attacks. HEENT: Chronic sinusitis. No troubles with vision or hearing. ENDOCRINE: He has secondary hyperparathyroidism. No diabetes. No thyroid disorder. HEENT: Denies any active trouble with vision or hearing. RESPIRATORY: Has sleep apnea. Not using CPAP machine. NEURO: Also has history of neuropathy. Denies any stroke or seizure disorders. PSYCH: Has depression. Has chronic pain syndrome. HEMATOLOGIC: Denies any easy bruising or bleeding. Denies any DVTs or pulmonary embolisms. SKIN: Has chronic panniculitis. No skin cancer. PHYSICAL EXAM: VITAL SIGNS: 5 foot 7.5 inches, 293 pounds. Body mass index 45.4 Vital Signs Temp 97.1 F L 03/12/18 15:17 Pulse 53 L 03/12/18 15:17 Resp 16 03/12/18 15:17 BP 158/53 03/12/18 15:17 Pulse Ox ABDOMEN: Pannus of 20 pounds. Soft, nondistended GENERAL: Well-developed male in no acute distress. MUSCULOSKELETAL: No clubbing, cyanosis, or edema. NEURO: No focal or lateralizing signs. Cranial nerves II through XII grossly intact. HEENT: No sclerae icterus. Extraocular movements are grossly intact. Moist buccal mucosa. NECK: Neck supple. No lymphadenopathy. CHEST: Normal respirations and bilateral excursions. CARDIOVASCULAR: Regular rate and rhythm. PSYCH: Appropriate affect. Alert and oriented to person, place and time. SKIN: Well perfused. Good skin turgor. Moderate skin elastosis along the arms and chest. ASSESSMENT: 1. Morbid obesity due to excess caloric intake. 2. Body mass index is reduced from 56 down to 45.4. 3. Status post sleeve gastrectomy. 4. Weight gain following bariatric procedure. 5. Secondary hyperparathyroidism. 6. Sinusitis. 7. History of obstructive sleep apnea. 8. Hypertensive heart disease without cardiomyopathy. 9. Depressive disorder without acute psychosis 10. History of HIV positive serology. 11. Osteoarthritis of the lower back secondary to morbid obesity 12. Osteoarthritis of bilateral knees secondary to morbid obesity 13. Chronic obstructive pulmonary disease secondary to asthma. 14. Skin elastosis. 15. Vitamin D deficiency. 16. Panniculitis 17. Skin elastosis 18. Noncompliance to bariatric diet 19. Gastroesophageal reflux disease 20. Claudication. PLAN: 1. Recommend evaluation for claudication with vascular surgeon as he has pain of the bilateral lower legs and calf 2. He report panniculitis. Recommend Nystatin powder. 3. He reports severe lower back pain and recommend evaluation with spine surgeon 4. Nystatin powder for panniculitis. 5. Recommend bariatric labs Laboratory Last Values WBC 3.7 k/uL (3.8-10.6) L 03/12/18 16:36 RBC 4.49 m/uL (4.30-5.90) 03/12/18 16:36 Hgb 13.7 gm/dL (13.0-17.5) 03/12/18 16:36 Hct 42.0 % (39.0-53.0) 03/12/18 16:36 MCV 93.5 fL (80.0-100.0) 03/12/18 16:36 MCH 30.5 pg (25.0-35.0) 03/12/18 16:36 MCHC 32.6 g/dL (31.0-37.0) 03/12/18 16:36 RDW 13.2 % (11.5-15.5) 03/12/18 16:36 Plt Count 204 k/uL (150-450) 03/12/18 16:36 PT 9.9 sec (9.0-12.0) 03/12/18 16:36 INR 0.9 (<1.2) 03/12/18 16:36 APTT 26.2 sec (22.0-30.0) 03/12/18 16:36 Sodium 139 mmol/L (135-145) 03/12/18 16:36 Potassium 4.0 mmol/L (3.5-5.5) 03/12/18 16:36 Chloride 103 mmol/L (96-109) 03/12/18 16:36 Carbon Dioxide 29.2 mmol/L (21.6-31.8) 03/12/18 16:36 Anion Gap 6.80 mmol/L (4.00-12.00) 03/12/18 16:36 BUN 13.0 mg/dL (9.0-27.0) 03/12/18 16:36 Creatinine 1.4 mg/dL (0.6-1.5) 03/12/18 16:36 Est GFR (CKD-EPI)AfAm 68.4 (60.0-200.0) 03/12/18 16:36 Est GFR (CKD-EPI)NonAf 59.0 (60.0-200.0) L 03/12/18 16:36 BUN/Creatinine Ratio 9.29 Ratio (12.00-20.00) L 03/12/18 16:36 Glucose 86 mg/dL (70-110) 03/12/18 16:[address] Glu mg/dL 111 03/12/18 16:36 Hemoglobin A1c 5.5 % (4.0-6.0) 03/12/18 16:36 Calcium 9.3 mg/dL (8.7-10.3) 03/12/18 16:36 Phosphorus 3.6 mg/dL (2.4-5.1) 03/12/18 16:36 Magnesium 2.1 mg/dL (1.5-2.4) 03/12/18 16:36 Iron 66 ug/dL (65-175) 03/12/18 16:36 TIBC 352 ug/dL (228-460) 03/12/18 16:36 Iron Saturation 18.75 (15.00-50.00) 03/12/18 16:36 Ferritin 129.1 ng/mL (22.0-322.0) 03/12/18 16:36 Total Bilirubin 0.5 mg/dL (0.3-1.2) 03/12/18 16:36 AST 25 U/L (14-35) 03/12/18 16:36 ALT 19 U/L (10-49) 03/12/18 16:36 Alkaline Phosphatase 76 U/L (41-126) 03/12/18 16:36 Total Protein 6.6 g/dL (6.2-8.2) 03/12/18 16:36 Albumin 4.60 g/dL (3.80-4.90) 03/12/18 16:36 Globulin 2.0 g/dL (1.6-3.3) 03/12/18 16:36 Albumin/Globulin Ratio 2.30 g/dL (1.20-2.10) H 03/12/18 16:36 Prealbumin 33.0 mg/dL (18.0-42.0) 03/12/18 16:36 Triglycerides 100.0 mg/dL (0.0-149.0) 03/12/18 16:36 Cholesterol 204 mg/dL (0-200) H 03/12/18 16:36 LDL Cholesterol, Calc 121.0 mg/dL (0.0-131.0) 03/12/18 16:36 VLDL Cholesterol, Calc 20.00 mg/dL (5.00-40.00) 03/12/18 16:36 HDL Cholesterol 63.0 mg/dL (40.0-60.0) H 03/12/18 16:36 Cholesterol/HDL Ratio 3.24 03/12/18 16:36 Vitamin A 86 ug/dL (38-106) 03/12/18 16:36 Vitamin B1 65 ug/L (38-122) 03/12/18 16:36 Vitamin B12 434.0 pg/mL (200.0-944.0) 03/12/18 16:36 Vitamin D 25-Hydroxy 42.1 ng/mL (30.0-100.0) 03/12/18 16:36 Folate 19.5 ng/mL 03/12/18 16:36 TSH 2.900 uIU/mL (0.350-5.500) 03/12/18 16:36 PTH Intact 119.2 pg/mL (14.0-72.0) H 03/12/18 16:36 Copper 1394 ug/L (665-1480) 03/12/18 16:36 Selenium 102 mcg/L (63-160) 03/12/18 16:36 Zinc 63 ug/dL (60-130) 03/12/18 16:36 Objective - Vital Signs Vital signs: Vital Signs Temp 97.1 F L 03/12/18 15:17 Pulse 53 L 03/12/18 15:17 Resp 16 03/12/18 15:17 BP 158/53 03/12/18 15:17 Pulse Ox Intake & Output 03/11/18 03/12/18 03/12/18 18:59 06:59 18:59 Weight 133.356 kg - Labs CBC & Chem 7: 03/12/18 16:36 03/12/18 16:36
[2018-03-12 16:49] LABS: HGB 13.7 gm/dL (13.0-17.5); MCH 30.5 pg (25.0-35.0); MCHC 32.6 g/dL (31.0-37.0); MCV 93.5 fL (80.0-100.0); Mean Platelet Volume 7.9; Platelet Count 204 k/uL (150-450); RBC 4.49 m/uL (4.30-5.90); RDW 13.2 % (11.5-15.5); WBC 3.7 k/uL (3.8-10.6)
[2018-03-12 16:53] LABS: INR 0.9 (<1.2); Partial Thromboplastin Time 26.2 sec (22.0-30.0); Prothrombin Time 9.9 sec (9.0-12.0)
[2018-03-13 05:10] LABS: Hemoglobin A1C 5.5 % (4.0-6.0)
[2018-03-13 05:26] LABS: Parathyroid Hormone Intact 119.2 pg/mL (14.0-72.0)
[2018-03-13 05:36] LABS: Iron Saturation 18.75 (15.00-50.00)
[2018-03-13 05:43] LABS: Vitamin D 25 Hydroxy 42.1 ng/mL (30.0-100.0)
[2018-03-13 05:44] LABS: Albumin 4.6 g/dL (3.80-4.90); Albumin/Globulin Ratio 2.3 (1.20-2.10); Anion Gap 6.8 mmol/L (4.00-12.00); Calcium 9.3 mg/dL (8.7-10.3); Carbon Dioxide 29.2 mmol/L (21.6-31.8); Magnesium 2.1 mg/dL (1.5-2.4); Phosphorus 3.6 mg/dL (2.4-5.1); Total Bilirubin 0.5 mg/dL (0.3-1.2); Total Protein 6.6 g/dL (6.2-8.2)
[2018-03-13 05:45] LABS: Folate, Serum 19.5 ng/mL
[2018-03-13 12:46] LABS: Zinc, Serum 63 ug/dL (60-130)
[2018-03-14 09:44] LABS: Vitamin B1 65 ug/L (38-122)
[2018-03-17 06:38] LABS: Vitamin A 86 ug/dL (38-106)
[2018-03-17 18:16] LABS: Selenium 102 mcg/L (63-160)
== END | disposition home or self-care (01) ==
LOC: BARWHC3 13:57
PROVIDERS: ATTEND Surgery Plastic and Reconstructive Surgery
DX: Z48.815 Encounter for surgical aftercare following surgery on the digestive system (principal); E66.01 Morbid (severe) obesity due to excess calories; N25.81 Secondary hyperparathyroidism of renal origin; J32.9 Chronic sinusitis, unspecified; I11.9 Hypertensive heart disease without heart failure; F32.9 Major depressive disorder, single episode, unspecified; M47.816 Spondylosis without myelopathy or radiculopathy, lumbar region; M17.0 Bilateral primary osteoarthritis of knee; J44.9 Chronic obstructive pulmonary disease, unspecified; E55.9 Vitamin D deficiency, unspecified; M79.3 Panniculitis, unspecified; K21.9 Gastro-esophageal reflux disease without esophagitis; I73.9 Peripheral vascular disease, unspecified; L57.4 Cutis laxa senilis; Z68.42 Body mass index [BMI] 45.0-49.9, adult; Z91.11 Patient's noncompliance with dietary regimen; Z98.84 Bariatric surgery status; Z21 Asymptomatic human immunodeficiency virus [HIV] infection status; Z86.69 Personal history of other diseases of the nervous system and sense organs; Z90.49 Acquired absence of other specified parts of digestive tract; Z98.890 Other specified postprocedural states; Z79.899 Other long term (current) drug therapy; Z88.0 Allergy status to penicillin; Z88.1 Allergy status to other antibiotic agents; Z88.8 Allergy status to other drugs, medicaments and biological substances
CPT/HCPCS: 84255; 84134; 84425; 80061; 80053; 82607; 82728; 82525; 82746; 83540; 83550; 83735; 84100; 84443; 84590; 84630; 85027; 85610; 85730; 82306; 83970; 83036; 36415; G0463; 99211

== ENCOUNTER → 2018-06-26 | Outpatient (CLI) | payer MEDICARE, OTHER ==
--- NOTE | 2018-06-26 17:30 | PN ---
PROGRESS NOTE DATE OF SERVICE: 06/26/2018 This is a 47-year-old gentleman who has [facility] of obstructive sleep apnea-hypopnea syndrome. I saw the patient about one year ago. At that time he had some problems with his CPAP unit secondary to the mask. At present the patient has problems with connection of his tube to the heated humidifier. [place] Sleepiness Scale today is 7. MEDICATIONS: 1. Amlodipine. 2. Omeprazole. 3. Doxazosin. 4. Montelukast. 5. Tramadol. 6. Baclofen. 7. Lyrica. 8. Citalopram. 9. Ventolin. 10.Vitamin D. 11.Colace. 12.Albuterol. PHYSICAL EXAMINATION: GENERAL: A pleasant patient in no distress. VITAL SIGNS: BP 120/73, HR 64, RR 16, height 5 feet 7 inches, weight 302 pounds. The patient's weight has increased by 6 pounds since his previous visit. Body mass index 47.2, temperature 97.5, oxygen saturation at room air 94%. HEENT: PERRLA, EOMI. Evaluation of oropharynx showed tongue protrudes midline. Moderately low position of soft palate. Restriction of nasal breathing. NECK: Supple. No JVD. Thyroid is not palpable. LUNGS: Clear to percussion and to auscultation. Good air exchange. No wheezing or rhonchi. HEART: S1, S2 regular. No murmurs, gallops or rubs. ABDOMEN: Obese. EXTREMITIES: No clubbing or cyanosis. SUPERINTENDENT DRILLING: Awake, alert, and oriented X3. Cranial nerves 2 to 7 intact. There is no fasciculation or atrophy. noted. No focal deficits observed. IMPRESSION: 1. Obstructive sleep apnea-hypopnea syndrome. The patient has problems with using the CPAP equipment related to connection of his tube to the heated humidifier. 2. Obesity. 3. Hypertension. 4. Asthma. 5. Acid reflux. 6. Back problems. 7. Status post cholecystectomy. 8. Status post hernia repair. 9. Status post gastric sleeve surgery in 2014. PLAN: 1. We will see fit the patient with a different style of mask. 2. Prescriptions for all necessary CPAP supplies, including mask, tube, filters. 3. Losing weight. 4. No driving if feeling any sleepiness. 5. Patient should use CPAP equipment every night for the whole night, and he promised to do so. Thank you very much for allowing me to participate in the management of your patient. Sincerely, Efren Torres MD, PhD, FAASM Diplomat of [employer] Money Order Clerk of [facility] [place] MMMADELINE / DONALDO: [id number] /
== END | disposition home or self-care (01) ==
LOC: SLEEP 15:45
PROVIDERS: ATTEND Internal Medicine
DX: G47.33 Obstructive sleep apnea (adult) (pediatric) (principal); E66.9 Obesity, unspecified; I10 Essential (primary) hypertension; J45.909 Unspecified asthma, uncomplicated; K21.9 Gastro-esophageal reflux disease without esophagitis; M54.9 Dorsalgia, unspecified; Z90.89 Acquired absence of other organs; Z98.84 Bariatric surgery status; Z98.890 Other specified postprocedural states; Z79.891 Long term (current) use of opiate analgesic; Z79.899 Other long term (current) drug therapy; Z99.89 Dependence on other enabling machines and devices; Z79.51 Long term (current) use of inhaled steroids; Z68.42 Body mass index [BMI] 45.0-49.9, adult

== ENCOUNTER → 2018-07-29 | Outpatient (CLI) | payer MEDICARE, OTHER ==
[2018-07-29 12:36] LABS: Basophils % (A) 1 %; Eosinophils # (A) 0.1 k/uL (0-0.7); Eosinophils % (A) 2 %; HCT 41.7 % (39.0-53.0); HGB 13.3 gm/dL (13.0-17.5); Lymphocytes # (A) 1.8 k/uL (1.0-4.8); Lymphocytes % (A) 47 %; MCH 29.5 pg (25.0-35.0); Mean Platelet Volume 8.3; Monocytes # (A) 0.3 k/uL (0-1.0); Monocytes % (A) 7 %; Neutrophils # (A) 1.6 k/uL (1.3-7.7); Neutrophils % (A) 40 %; Platelet Count 222 k/uL (150-450); RBC 4.53 m/uL (4.30-5.90); RDW 14.4 % (11.5-15.5); WBC 3.9 k/uL (3.8-10.6)
[2018-07-29 18:24] LABS: Albumin 4.5 g/dL (3.80-4.90); Albumin/Globulin Ratio 2.05 (1.60-3.17); Anion Gap 6.1 mmol/L (4.00-12.00); Calcium 9.4 mg/dL (8.7-10.3); Carbon Dioxide 29.9 mmol/L (21.6-31.8); Globulin 2.2 g/dL (1.6-3.3); Potassium 3.9 mmol/L (3.5-5.5); Total Bilirubin 0.8 mg/dL (0.3-1.2); Total Protein 6.7 g/dL (6.2-8.2)
[2018-07-30 10:59] LABS: T4/T8 Ratio (CD4:CD8) 0.9 (1.0-3.7)
[2018-07-30 13:41] LABS: HIV-1 RNA DETECTED (Not detected); HIV-1 RNA, Quant <40 Copies/mL (<40)
== END ==
LOC: LABWHC1 11:37
PROVIDERS: ATTEND Internal Medicine Infectious Disease
DX: B20 Human immunodeficiency virus [HIV] disease (principal)
CPT/HCPCS: 36415; 80053; 85025; 86360; 87536

== ENCOUNTER → 2018-07-29 | Outpatient (CLI) | payer MEDICARE, OTHER ==
--- NOTE | 2018-07-29 13:15 | CT ---
EXAMINATION TYPE: CT iac wo con DATE OF EXAM: 07/29/2018 COMPARISON: CT IAC May 27, 2017 and older study September 27, 2015. HISTORY: Superior canal dehiscence syndrome. Right-sided ear problems and pressure with headaches and dizziness for years. CT DLP: 240 mGycm. Automated Exposure Control for Dose Reduction was Utilized. TECHNIQUE: CT scan of internal auditory canal is performed without contrast, thin cut axial images ar e obtained, coronal reformatted images are also reviewed. FINDINGS: The external auditory canals are patent bilaterally. Some patchy soft tissue density in the left is felt to reflect cerumen similar to most recent prior. Persistent complete opacification of r ight mastoid air cells with soft tissue density extending into the middle ear canal surrounding middl e ear ossicles remains present. Postsurgical change suspected along inferior margin of the middle ea r ossicles is again seen. The scutum remains preserved bilaterally. The cochlea and the semicircular canals are symmetric and unremarkable. There is preserved osseous over coverage on the superior semi circular canal bilaterally. Vestibular aqueduct and internal carotid canal appear unremarkable. Lef t mastoid air cells are clear. Left middle ear ossicles show no surrounding soft tissue. Temporomandibular joints are maintained bilaterally. Visualized paranasal sinuses are grossly clear. Visualized portion brain parenchyma is felt within normal limits. IMPRESSION: No CT evidence for superior canal dehiscent syndrome on the right. Persistent opacified r ight mastoid air cells and soft tissue surrounding right middle ear ossicles with suspected surgical change.
== END | disposition home or self-care (01) ==
LOC: RADCTMAIN 10:50
PROVIDERS: ATTEND Otolaryngology Otology & Neurotology
DX: H83.11 Labyrinthine fistula, right ear (principal); H83.12 Labyrinthine fistula, left ear
CPT/HCPCS: 70480

== ENCOUNTER → 2018-08-18 | Outpatient (CLI) | payer MEDICARE, OTHER ==
--- NOTE | 2018-08-18 13:58 | XR ---
EXAMINATION TYPE: XR knee complete RT DATE OF EXAM: 08/18/2018 CLINICAL HISTORY: Right knee pain and tightness for 3 weeks TECHNIQUE: Three views of the right knee are obtained. COMPARISON: None. FINDINGS: There is no acute fracture/dislocation evident in right knee. There is mild tricompartment joint space loss most prominent femoral compartment. No significant spurring. The overlying soft ti ssue appears unremarkable. IMPRESSION: As above.
== END | disposition home or self-care (01) ==
LOC: RADXRMAIN 13:26
PROVIDERS: ATTEND Internal Medicine
DX: M25.861 Other specified joint disorders, right knee (principal)

== ENCOUNTER → 2018-09-24 | Outpatient (CLI) | payer MEDICARE, OTHER ==
--- NOTE | 2018-09-24 13:58 | MR ---
EXAMINATION TYPE: MR knee RT wo con DATE OF EXAM: 09/24/2018 COMPARISON: Right knee x-ray August 18, 2018 HISTORY: Right knee pain per Order. Inner pain and locking for 2 to 3 weeks per patient. TECHNIQUE: Multiplanar, multisequence images of the knee is performed without IV contrast. FINDINGS: MEDIAL MENISCUS: Anterior horn is intact without tear. Posterior horn is truncated with increased irr egular signal along posterior aspect extending to posterior and inferior articular surface seen best sagittal image 5 and 6. LATERAL MENISCUS: Anterior and posterior horns are intact without tear. CRUCIATE LIGAMENTS: The posterior cruciate ligament is intact and unremarkable. Some increased signal seen in the intact anterior cruciate ligament. COLLATERAL LIGAMENTS: The medial collateral ligament and lateral collateral ligament complex are inta ct. Mild fluid signal surrounds the medial collateral ligament coronal image 17. EXTENSOR MECHANISM: Visualized quadriceps and patellar tendons are intact. EFFUSION: Moderate to borderline large suprapatellar joint effusion. POPLITEAL CYST: No popliteal/borges cyst. TRICOMPARTMENT SPACES: Mild tricompartment joint space narrowing most prominent patellofemoral compar tment. Mild to minimal tibial condylar spurring. CARTILAGE: Some fissuring of articular cartilage posterior patellar pole consistent with chondromalac ia patella. No full-thickness cartilaginous loss. BONE MARROW SIGNAL: No focal abnormal marrow signal is appreciated. OTHER: No additional significant abnormality is appreciated. IMPRESSION: 1. Full-thickness tear posterior horn medial meniscus. 2. Mild MCL sprain injury. 3. Moderate to large suprapatellar joint effusion. 4. Myxoid degeneration ACL. 5. [id number] tricompartment degenerative changes most prominent patellofemoral compartment.
== END | disposition home or self-care (01) ==
LOC: RADMRIMAIN 11:21
PROVIDERS: ATTEND Orthopaedic Surgery
DX: S83.411A Sprain of medial collateral ligament of right knee, initial encounter (principal); M17.11 Unilateral primary osteoarthritis, right knee

== ENCOUNTER → 2018-10-08 | Outpatient (CLI) | payer MEDICARE, OTHER ==
[2018-10-08 13:22] VITALS: BP 128/85; PULSE 73; RESP 16; TEMP 98.9; BMI 44.6
--- NOTE | 2018-10-08 13:49 | P.PN ---
Subjective Progress Note Date: 10/08/18 HPI: He comes in for yearly follow-up for sleeve gastrectomy. He reports continued trouble with his sleeve gastrectomy. His lowest weight was 262 pounds. Highest weight of 365 pounds. He has lost weight from 294 to 289 pounds in 7 months. He is looking into panniculectomy as well with his panniculitis. He reports dysphagia with food. Barium swallow advised. ASSESSMENT: 1. Morbid obesity 2. Complications for sleeve gastrectomy PLAN: 1. Recommend revision to bypass with complications from sleeve. 2. Labs reviewed with high PTH. Recommend Calcium 1200 mg daily. 3. Re-check labs 4. Continue with weight loss 5. Recommend swallow study. Objective - Vital Signs Vital signs: Vital Signs Temp 98.9 F 10/08/18 13:19 Pulse 73 10/08/18 13:19 Resp 16 10/08/18 13:19 BP 128/85 10/08/18 13:19 Pulse Ox Intake & Output 10/07/18 10/08/18 10/08/18 18:59 06:59 18:59 Weight 131.088 kg
== END | disposition home or self-care (01) ==
LOC: BARWHC3 12:48
PROVIDERS: ATTEND Surgery Plastic and Reconstructive Surgery
DX: Z48.815 Encounter for surgical aftercare following surgery on the digestive system (principal); E66.01 Morbid (severe) obesity due to excess calories; K95.89 Other complications of other bariatric procedure; Z68.41 Body mass index [BMI] 40.0-44.9, adult; Z98.84 Bariatric surgery status
CPT/HCPCS: 97803; G0463; 99211

== ENCOUNTER → 2018-10-31 | Outpatient (CLI) | payer MEDICARE, OTHER ==
--- NOTE | 2018-10-31 11:39 | FL ---
EXAMINATION: Cervical and Thoracic Esophagram DATE OF EXAM: 10/31/2018 CLINICAL INDICATION: 48-year-old male burping, gas, reflux, occasional food getting stuck in the thro at. History of sleeve gastrectomy in 2015. COMPARISON: None Total Fluoroscopy Time: 1 minute 47 seconds. Total images: 39 FINDINGS: The swallowing mechanism is normal and hypopharyngeal anatomy is preserved. The cervical and thoracic portions have a normal course and caliber. When the patient is supine, there is prolonged pooling of contrast in the esophagus with recurrent ep isodes of intraesophageal reflux and mild to moderate tertiary peristalsis. The mucosa is normal and no persistent filling defect is encountered. There is a sliding hiatal hernia which enlarges to moderate sized depending on positioning and breath ing. Intermittent moderate gastroesophageal reflux is demonstrated. IMPRESSION: 1. Sliding hiatal hernia which enlarges to a moderate size. 2. Moderate gastroesophageal reflux seen. 3. Additional mild to moderate dysmotility with prolonged pooling of contrast in the esophagus when t he patient is supine and with recurrent episodes of intraesophageal reflux.
== END ==
LOC: RADUSWWP 10:25
PROVIDERS: ATTEND Surgery Plastic and Reconstructive Surgery
DX: K44.9 Diaphragmatic hernia without obstruction or gangrene (principal); K21.9 Gastro-esophageal reflux disease without esophagitis; K22.4 Dyskinesia of esophagus
CPT/HCPCS: 74220

== ENCOUNTER 2018-11-21 16:59 | Emergency (ER) | payer MEDICARE, OTHER ==
[2018-11-21 17:18] VITALS: BP 117/75; PULSE 63; RESP 18; TEMP 97.9
[2018-11-21] MEDS ORDERED: ACETAMINOPHEN TAB 325 MG TAB PO STA (17:46)
--- NOTE | 2018-11-21 18:05 | XR ---
EXAMINATION TYPE: XR lumbar spine 2 or 3V DATE OF EXAM: 11/21/2018 COMPARISON: NONE HISTORY: Pain TECHNIQUE: 3 views FINDINGS: Lumbar vertebra have normal alignment. Posterior elements are intact. There is no evidence for fracture. Disc spaces are fairly normal. Sacroiliac joints are intact. IMPRESSION: Negative lumbar spine exam. No fracture seen.
--- NOTE | 2018-11-21 18:06 | XR ---
EXAMINATION TYPE: XR ankle complete RT DATE OF EXAM: 11/21/2018 COMPARISON: NONE HISTORY: Pain TECHNIQUE: 3 views FINDINGS: There is soft tissue swelling over the lateral malleolus. Ankle mortise is anatomic. I see no fracture nor dislocation. Joint spaces are fairly normal. IMPRESSION: Soft tissue swelling. No fracture seen.
--- NOTE | 2018-11-21 18:44 | ED ---
General Adult HPI - General Chief complaint: Extremity Injury, Lower Stated complaint: Fall, ankle pain Time Seen by Provider: 11/21/18 17:46 Source: patient, RN notes reviewed, old records reviewed Mode of arrival: wheelchair Limitations: physical limitation - History of Present Illness Initial comments: 48-year-old male patient does ED chief complaint of fall and ankle injury. Patient reports that he has chronic problems with his right lower extremity and it occasionally causes him to fall. Patient reports that he got out of the shower, suffered a right ankle inversion injury. Fell on the ground. He denies any trauma to head or neck. Patient does report that he also has chronic lumbar back pain. Patient reports his back pain is slightly worse. Patient denies any loss of bowel or bladder control, saddle anesthesia, paresthesias, lower extremity weakness. Denies other complaints. Systemic: Pt denies fatigue, fever/chills, rash. Pt denies weakness, night sweats, weight loss. Neuro: Pt denies headache, visual disturbances, syncope or pre-syncope. HEENT: Pt denies ocular discharge or irritation, otalgia, rhinorrhea, pharyngitis or notable lymphadenopathy. Cardiopulmonary: Pt denies chest pain, SOB, heart palpitations, dyspnea on exertion. Abdominal/GI: Pt denies abdominal pain, n/v/d. : Pt denies dysuria, burning w/ urination, frequency/urgency. Denies new onset urinary or bowel incontinence. MSK: Pt denies myalgia, loss of strength or function in extremities. Neuro: Pt denies new onset weakness, paresthesias. - Related Data Home Medications Medication Instructions Recorded Confirmed Albuterol Inhaler [Ventolin 2 puff INHALATION RT-Q4H PRN 12/02/13 10/08/18 Inhaler] Baclofen 10 mg PO TID 12/02/13 10/08/18 Citalopram Hydrobromide 40 mg PO BID 12/02/13 10/08/18 [Citalopram HBr] Fluticasone Propionate [Flonase] 1 spray EA NOSTRIL DAILY 12/02/13 10/08/18 amLODIPine BESYLATE [Amlodipine 10 mg PO QAM 12/02/13 10/08/18 Besylate] traMADol HCL [Tramadol HCl] 50 mg PO Q6HR PRN 12/02/13 10/08/18 Pregabalin [Lyrica] 150 mg PO BID 03/02/15 10/08/18 Docusate [Colace] 100 mg PO TID 06/23/15 10/08/18 Doxazosin Mesylate [Cardura] 8 mg PO BID 02/15/16 10/08/18 Montelukast Sodium [Singulair] 10 mg PO DAILY 02/15/16 10/08/18 Albuterol Nebulized [Ventolin 2.5 mg INHALATION Q6H PRN 06/14/17 10/08/18 Nebulized] Ergocalciferol [Vitamin D2 50,000 unit PO MO 06/14/17 10/08/18 (DRISDOL)] Guaifen/Phenyleph/Acetaminophn 1 each PO DAILY PRN 06/14/17 10/08/18 [Tylenol Sinus Severe Caplet] Multivitamins, Thera [Multivitamin 1 tab PO DAILY 06/14/17 10/08/18 (formulary)] Omeprazole [PriLOSEC] 40 mg PO DAILY 06/14/17 10/08/18 Allergies Allergy/AdvReac Type Severity Reaction Status Date / Time bacitracin zinc Allergy Unknown Unknown Verified 11/21/18 17:18 [From Cortisporin] Childhood hydrocortisone Allergy Unknown Unknown Verified 11/21/18 17:18 [From Cortisporin] Childhood neomycin sulfate Allergy Unknown Unknown Verified 11/21/18 17:18 [From Cortisporin] Childhood Penicillins Allergy Unknown Rash/Hives Verified 11/21/18 17:18 polymyxin B Allergy Unknown Unknown Verified 11/21/18 17:18 [From Cortisporin] Childhood pollen extracts Allergy ALLERGY Verified 11/21/18 17:18 SX, RASH ON ARMS WHOLE MILK Allergy Rash/Hives Uncoded 11/21/18 17:18 Review of Systems ROS Statement: Those systems with pertinent positive or pertinent negative responses have been documented in the HPI. ROS Other: All systems not noted in ROS Statement are negative. Past Medical History Past Medical History: Asthma, Hearing Disorder / Deafness, Hypertension, Musculoskeletal Disorder, Sleep Apnea/CPAP/BIPAP Additional Past Medical History / Comment(s): HIV positive, STABLE, NO RX REQUIRED. bulging disc in lumbar. CPAP. HERNIA REPAIR. GASTRIC SLEEVE. CONDUCTIVE HEARING LOSS MURIEL, RT WORSE. FREQ EAR CLOGGING, RINGING. History of Any Multi-Drug Resistant Organisms: None Reported Past Surgical History: Bariatric Surgery, Cholecystectomy, Ear Surgery, Hernia Repair Additional Past Surgical History / Comment(s): Neck (CHIARI MALFORMATION).RIGHT AND LEFT INGUINAL HERNIA, 03-02-15 GASTRIC SLEEVE Past Anesthesia/Blood Transfusion Reactions: No Reported Reaction Past Psychological History: Anxiety, Depression Smoking Status: Never smoker Past Alcohol Use History: Occasional Past Drug Use History: None Reported - Past Family History Mother Family Medical History: Diabetes Mellitus, Hypertension, Sleep Apnea/CPAP/BIPAP Father Family Medical History: Hypertension General Exam - General Exam Comments Initial Comments: Constitutional: NAD, AOX3, Pt has pleasant affect. HEENT: NC/AT, trachea midline, neck supple, no lymphadenopathy. Posterior pha rynx non erythematous, without exudates. External ears appear normal, without discharge. Mucous membranes moist. Eyes PERRLA, EOM intact. There is no scleral icterus. No pallor noted. Cardiopulmonary: RRR, no murmurs, rubs or gallops, no JVD noted. Lungs CTAB in anterior and posterior iverson. No peripheral edema. Abdominal exam: Abdomen soft and non-distended. Abdomen non-tender to palpation in all 4 quadrants. Bowel sounds active in LLQ. No hepatosplenomegaly. No ecchymosis Neuro: CN II-XII grossly intact. No nuchal rigidity. No raccon eyes, no mitchell sign, no hemotympanum. No cervical spinal tenderness. MSK: Medial malleolus moderately tender to palpation. Plantar and dorsiflexion intact. Sensation intact. Patient able wiggle toes. Posterior tibialis pulse +2. Patient placed in posterior ankle splint. Neurovascular intact after splint placement. Mild amount of left her lumbar back tenderness. 5 out of 5 strength psoas and quadriceps muscles. No posterior calf tenderness b ilaterally, homans sign negative bilaterally. Posterior tibialis and radial pulse +2 bilaterally. Sensation intact in upper and lower extremities. Full active ROM in upper and lower extremities, 5/5 stregnth. Limitations: physical limitation Course Vital Signs 11/21/18 17:16 Temperature 97.9 F Pulse Rate 63 Respiratory 18 Rate Blood Pressure 117/75 O2 Sat by Pulse 98 Oximetry Medical Decision Making - Medical Decision Making 48-year-old male patient does ED chief complaint of fall and ankle injury. Patient reports that he has chronic problems with his right lower extremity and it occasionally causes him to fall. Patient reports that he got out of the shower, suffered a right ankle inversion injury. Fell on the ground. He denies any trauma to head or neck. Patient does report that he also has chronic lumbar back pain. Patient reports his back pain is slightly worse. Patient denies any loss of bowel or bladder control, saddle anesthesia, paresthesias, lower extremity weakness. Denies other complaints. Pt VSS, afebrile. Physical exam displayed: Medial malleolus moderately tender to palpation. Plantar and dorsiflexion intact. Sensation intact. Patient able wiggle toes. Posterior tibialis pulse +2. Patient placed in posterior ankle splint. Neurovascular intact after splint placement. Mild amount of left her lumbar back tenderness. 5 out of 5 strength psoas and quadriceps muscles. Plain film ankle displayed soft tissue swelling. Plain film of lumbar spine displayed no acute process. Patient placed in a posterior ankle splint. He'll be discharged with orthopedic follow-up. Case discussed with Dr. Garrett. Disposition Clinical Impression: Ankle sprain Disposition: HOME SELF-CARE Condition: Stable Instructions (If sedation given, give patient instructions): Ankle Sprain (ED) Additional Instructions: Patient to adhere to previously discussed treatment plan and will take medication(s) as directed. Patient to follow up with PCP in 1-2 days. Patient to return to ED if symptoms do not improve. Follow-up with orthopedic consult tomorrow. Do not bear weight and right lower extremity. Use crutches. Return to ER if condition worsens. Is patient prescribed a controlled substance at d/c from ED?: No Referrals: Ramiro Milligan MD [Primary Care Provider] - 1-2 days Jimmie Madden DO [Doctor of Osteopathic Medicine] - 1-2 days
== END 2018-11-21 18:55 | disposition home or self-care (01) ==
LOC: EC 16:59
DX: S93.401A Sprain of unspecified ligament of right ankle, initial encounter (principal); J45.909 Unspecified asthma, uncomplicated; I10 Essential (primary) hypertension; G47.30 Sleep apnea, unspecified; Z21 Asymptomatic human immunodeficiency virus [HIV] infection status; F41.9 Anxiety disorder, unspecified; F32.9 Major depressive disorder, single episode, unspecified; Z79.51 Long term (current) use of inhaled steroids; Z79.899 Other long term (current) drug therapy; Z88.0 Allergy status to penicillin; Z88.1 Allergy status to other antibiotic agents; Z88.5 Allergy status to narcotic agent; Z91.011 Allergy to milk products; Z91.048 Other nonmedicinal substance allergy status; Z98.84 Bariatric surgery status; Z99.89 Dependence on other enabling machines and devices; W19.XXXA Unspecified fall, initial encounter
CPT/HCPCS: 29515; 72100; 99284

== ENCOUNTER → 2019-01-13 | Outpatient (CLI) | payer MEDICARE, OTHER ==
[2019-01-13 14:12] LABS: Basophils # (A) 0.1 k/uL (0-0.2); Basophils % (A) 1 %; Eosinophils # (A) 0.1 k/uL (0-0.7); Eosinophils % (A) 1 %; HCT 40.9 % (39.0-53.0); HGB 13.6 gm/dL (13.0-17.5); Lymphocytes # (A) 2.4 k/uL (1.0-4.8); Lymphocytes % (A) 46 %; MCHC 33.2 g/dL (31.0-37.0); MCV 96.2 fL (80.0-100.0); Mean Platelet Volume 7.9; Monocytes # (A) 0.3 k/uL (0-1.0); Monocytes % (A) 6 %; Neutrophils # (A) 2.1 k/uL (1.3-7.7); Neutrophils % (A) 41 %; Platelet Count 169 k/uL (150-450); RBC 4.25 m/uL (4.30-5.90); RDW 12.7 % (11.5-15.5); WBC 5.1 k/uL (3.8-10.6)
[2019-01-13 19:50] LABS: African American GFR (CKD) 67.9 (60.0-200.0); Albumin 4.4 g/dL (3.80-4.90); Albumin/Globulin Ratio 2.2 (1.60-3.17); BUN/Creat Ratio 12.14 Ratio (12.00-20.00); Calcium 9.1 mg/dL (8.7-10.3); Potassium 3.9 mmol/L (3.5-5.5); Total Bilirubin 0.6 mg/dL (0.2-1.2); Total Protein 6.4 g/dL (6.2-8.2)
[2019-01-14 11:23] LABS: T4/T8 Ratio (CD4:CD8) 0.9 (1.0-3.7)
== END | disposition home or self-care (01) ==
LOC: LABWHC1 13:36
PROVIDERS: ATTEND Internal Medicine Infectious Disease
DX: B20 Human immunodeficiency virus [HIV] disease (principal)
CPT/HCPCS: 36415; 80053; 85025; 86360; 87536

== ENCOUNTER → 2019-02-18 | Outpatient (CLI) | payer MEDICARE, OTHER ==
[2019-02-18 13:44] VITALS: BP 137/87; PULSE 54; TEMP 97.9; BMI 44.7
--- NOTE | 2019-02-18 13:53 | P.PN ---
Subjective Progress Note Date: 02/18/19 DATE OF SERVICE: 02/18/2019 CHIEF COMPLAINT: Follow-up sleeve gastrectomy. HISTORY OF PRESENT ILLNESS: Yoseph Morillo is a 48-year-old gentleman who is status post sleeve gastrectomy from March 02, 2015. He is 4 years out. He has persistent gastroesophageal reflux despite his sleeve. He reports persistent epigastric pain. He has persistent dysphagia with food. He presents for repair of his sleeve gastrectomy. At his height of 5 foot 7.5 inches, his ideal body weight is 158 pounds. His highest weight was 365 pounds. He now comes in weighing 289 pounds from 288 pounds, 4 months ago. He has gained 1 pounds in 4 months. Lifetime weight loss 76 pounds. Percent excess weight loss of 37 %. Initial body mass index was 56.4. Current body mass index is 44.7. PAST MEDICAL HISTORY: 1. HIV positive. 2. Panniculitis. 3. Chronic constipation. 4. Asthma. 5. Neuropathy. 6. Chronic pain syndrome. 7. Hypertension. 8. Depression 9. History of Budd-Chiari syndrome. 10. Morbid obesity, initial BMI 56.4 11. Gastroesophageal reflux disease 12. Obstructive sleep apnea PAST SURGICAL HISTORY: 1. Laparoscopic cholecystectomy. 2. Upper endoscopy. 3. History of back surgery. 4. Surgical history of the neck for Budd-Chiari syndrome. 5. Laparoscopic bilateral inguinal hernia repair. 6. Status post sleeve gastrectomy. 7. Upper endoscopy with balloon dilatation. MEDICATIONS: Home Medications Medication Instructions Recorded Confirmed Albuterol Inhaler [Ventolin 2 puff INHALATION RT-Q4H PRN 12/02/13 10/08/18 Inhaler] Baclofen 10 mg PO TID 12/02/13 10/08/18 Citalopram Hydrobromide 40 mg PO BID 12/02/13 10/08/18 [Citalopram HBr] Fluticasone Propionate [Flonase] 1 spray EA NOSTRIL DAILY 12/02/13 10/08/18 amLODIPine BESYLATE [Amlodipine 10 mg PO QAM 12/02/13 10/08/18 Besylate] traMADol HCL [Tramadol HCl] 50 mg PO Q6HR PRN 12/02/13 10/08/18 Pregabalin [Lyrica] 150 mg PO BID 03/02/15 10/08/18 Docusate [Colace] 100 mg PO TID 06/23/15 10/08/18 Doxazosin Mesylate [Cardura] 8 mg PO BID 02/15/16 10/08/18 Montelukast Sodium [Singulair] 10 mg PO DAILY 02/15/16 10/08/18 Albuterol Nebulized [Ventolin 2.5 mg INHALATION Q6H PRN 06/14/17 10/08/18 Nebulized] Ergocalciferol [Vitamin D2 50,000 unit PO MO 06/14/17 10/08/18 (DRISDOL)] Guaifen/Phenyleph/Acetaminophn 1 each PO DAILY PRN 06/14/17 10/08/18 [Tylenol Sinus Severe Caplet] Multivitamins, Thera [Multivitamin 1 tab PO DAILY 06/14/17 10/08/18 (formulary)] Omeprazole [PriLOSEC] 40 mg PO DAILY 06/14/17 10/08/18 ALLERGIES: BACITRACIN, HYDROCORTISONE, NEOMYCIN, PENICILLIN, POLYMYCIN. SOCIAL HISTORY: Lifelong nontobacco user. FAMILY HISTORY: Denies any family history of gastrointestinal malignancies. Denies any lupus in his family. Denies any DVT or pulmonary embolism. REVIEW OF SYSTEMS: CONSTITUTIONAL: At his height of 5 foot 7.5 inches, his ideal body weight is 158 pounds. Initial body mass index was 56.4. His lowest weight was 262 pounds. Highest weight of 365 pounds. GASTROINTESTINAL: No dumping syndrome. No diarrhea. MUSCULOSKELETAL: Has diffuse joint pain including back pain. CARDIOVASCULAR: No chest pain. No heart attacks. HEENT: Chronic sinusitis. No troubles with vision or hearing. ENDOCRINE: He has secondary hyperparathyroidism. No diabetes. No thyroid disorder. HEENT: Denies any active trouble with vision or hearing. RESPIRATORY: Has sleep apnea. Not using CPAP machine. NEURO: Also has history of neuropathy. Denies any stroke or seizure disorders. PSYCH: Has depression. Has chronic pain syndrome. HEMATOLOGIC: Denies any easy bruising or bleeding. Denies any DVTs or pulmonary embolisms. SKIN: Has chronic panniculitis. No skin cancer. PHYSICAL EXAM: VITAL SIGNS: 5 foot 7.5 inches, 289 pounds. Body mass index 44.7 Vital Signs Temp 97.9 F 02/18/19 13:31 Pulse 54 L 02/18/19 13:31 Resp BP 137/87 02/18/19 13:31 Pulse Ox ABDOMEN: Soft, nondistended GENERAL: Well-developed male in no acute distress. MUSCULOSKELETAL: No clubbing, cyanosis, or edema. NEURO: No focal or lateralizing signs. Cranial nerves II through XII grossly intact. HEENT: No sclerae icterus. Extraocular movements are grossly intact. Moist buccal mucosa. NECK: Neck supple. No lymphadenopathy. CHEST: Normal respirations and bilateral excursions. CARDIOVASCULAR: Regular rate and rhythm. PSYCH: Appropriate affect. Alert and oriented to person, place and time. SKIN: Well perfused. Good skin turgor. Moderate skin elastosis along the arms and chest. STUDIES: Esophagram shows sliding hiatal hernia. Esophagram report shows dysmotility and severe gastroesophageal reflux disease ASSESSMENT: 1. Morbid obesity due to excess caloric intake. 2. Body mass index is reduced from 56 down to 44.6 3. History of obstructive sleep apnea. 4. Hypertensive heart disease without cardiomyopathy. 5. Depressive disorder without acute psychosis 6. Osteoarthritis of the lower back 7. Osteoarthritis of bilateral knees 8. Chronic obstructive pulmonary disease 9. Panniculitis 10. Skin elastosis 11. Gastroesophageal reflux disease 12. Complications from sleeve gastrectomy 13. Dysphagia PLAN: 1. Recommend conversion from sleeve gastrectomy to gastric bypass for correction of weight loss surgery. 2. He has a hiatal hernia and recommend hiatal hernia repair. 3. Conversion to gastric bypass should correct problems of gastroesophageal reflux disease and complications of sleeve gastrectomy 4. DVT prophylaxis 5. GI prophylaxis 6. He is elevated risk for complications Objective - Vital Signs Vital signs: Vital Signs Temp 97.9 F 02/18/19 13:31 Pulse 54 L 02/18/19 13:31 Resp BP 137/87 02/18/19 13:31 Pulse Ox Intake & Output 02/17/19 02/18/19 02/18/19 18:59 06:59 18:59 Weight 131.542 kg
== END | disposition home or self-care (01) ==
LOC: BARWHC3 12:56
PROVIDERS: ATTEND Surgery Plastic and Reconstructive Surgery
DX: Z48.815 Encounter for surgical aftercare following surgery on the digestive system (principal); E66.01 Morbid (severe) obesity due to excess calories; I11.9 Hypertensive heart disease without heart failure; F32.9 Major depressive disorder, single episode, unspecified; J44.9 Chronic obstructive pulmonary disease, unspecified; M17.0 Bilateral primary osteoarthritis of knee; M47.816 Spondylosis without myelopathy or radiculopathy, lumbar region; M79.3 Panniculitis, unspecified; L87.2 Elastosis perforans serpiginosa; K21.9 Gastro-esophageal reflux disease without esophagitis; R13.10 Dysphagia, unspecified; Z87.09 Personal history of other diseases of the respiratory system; Z68.41 Body mass index [BMI] 40.0-44.9, adult; Z79.899 Other long term (current) drug therapy; Z88.0 Allergy status to penicillin; Z88.2 Allergy status to sulfonamides; Z88.1 Allergy status to other antibiotic agents
CPT/HCPCS: 99211

== ENCOUNTER → 2019-03-12 | Outpatient (CLI) | payer MEDICARE, OTHER ==
[2019-03-12 15:47] LABS: INR 0.9 (<1.2); Partial Thromboplastin Time 26.4 sec (22.0-30.0)
[2019-03-12 15:58] LABS: HCT 41.5 % (39.0-53.0); HGB 13.9 gm/dL (13.0-17.5); MCH 31.2 pg (25.0-35.0); MCHC 33.5 g/dL (31.0-37.0); MCV 93.2 fL (80.0-100.0); Mean Platelet Volume 9.2; Platelet Count 203 k/uL (150-450); RBC 4.45 m/uL (4.30-5.90); RDW 12.5 % (11.5-15.5); WBC 4.7 k/uL (3.8-10.6)
[2019-03-12 19:57] LABS: Hemoglobin A1C 5.4 % (4.0-6.0)
[2019-03-13 00:31] LABS: % Iron Saturation 19.6 (15.00-50.00); African American GFR (CKD) 62.5 (60.0-200.0); Albumin 4.6 g/dL (3.80-4.90); Albumin/Globulin Ratio 2.19 (1.60-3.17); Anion Gap 9.5 mmol/L (4.00-12.00); BUN/Creat Ratio 13.33 Ratio (12.00-20.00); Calcium 9.2 mg/dL (8.7-10.3); Carbon Dioxide 29.5 mmol/L (21.6-31.8); Chol/HDL Ratio 3.59; Globulin 2.1 g/dL (1.6-3.3); Magnesium 2.2 mg/dL (1.5-2.4); Non-African American GFR(CKD) 53.9 (60.0-200.0); Phosphorus 3.7 mg/dL (2.4-5.1); Potassium 3.7 mmol/L (3.5-5.5); Total Bilirubin 0.6 mg/dL (0.3-1.2); Total Protein 6.7 g/dL (6.2-8.2)
[2019-03-13 00:38] LABS: Ferritin 75.9 ng/mL (22.0-322.0)
[2019-03-13 01:01] LABS: Folate, Serum 18.8 ng/mL
[2019-03-13 14:08] LABS: Zinc, Serum 71 ug/dL (60-130)
[2019-03-14 07:46] LABS: Vitamin A 72 ug/dL (38-106)
[2019-03-14 07:53] LABS: Vit B1(Thiamine) 66 ug/L (38-122)
[2019-03-14 21:47] LABS: Selenium 136 mcg/L (63-160)
== END | disposition home or self-care (01) ==
LOC: LABWHC1 14:52
PROVIDERS: ATTEND Surgery Plastic and Reconstructive Surgery
DX: E89.1 Postprocedural hypoinsulinemia (principal); D50.9 Iron deficiency anemia, unspecified; K90.9 Intestinal malabsorption, unspecified; E55.9 Vitamin D deficiency, unspecified; K74.1 Hepatic sclerosis; N19 Unspecified kidney failure; K50.90 Crohn's disease, unspecified, without complications
CPT/HCPCS: 36415; 80053; 80061; 82306; 82525; 82607; 82728; 82746; 83036; 83540; 83550; 83735; 83970; 84100; 84134; 84255; 84425; 84443; 84590; 84630; 85027; 85610; 85730

== ENCOUNTER → 2019-06-26 | Outpatient (CLI) | payer MEDICARE, OTHER ==
[2019-06-26 10:15] LABS: Basophils % (A) 1 %; Eosinophils # (A) 0.1 k/uL (0-0.7); Eosinophils % (A) 2 %; HCT 45.6 % (39.0-53.0); HGB 15.1 gm/dL (13.0-17.5); Lymphocytes % (A) 57 %; MCH 31.2 pg (25.0-35.0); MCV 94.6 fL (80.0-100.0); Mean Platelet Volume 8.7; Monocytes # (A) 0.3 k/uL (0-1.0); Monocytes % (A) 6 %; Neutrophils # (A) 1.7 k/uL (1.3-7.7); Neutrophils % (A) 32 %; Platelet Count 209 k/uL (150-450); RBC 4.82 m/uL (4.30-5.90); RDW 13.3 % (11.5-15.5); WBC 5.3 k/uL (3.8-10.6)
[2019-06-26 15:36] LABS: African American GFR (CKD) 62.5 (60.0-200.0); Albumin 4.7 g/dL (3.80-4.90); Albumin/Globulin Ratio 1.96 (1.60-3.17); Anion Gap 14.7 mmol/L (4.00-12.00); Calcium 9.7 mg/dL (8.7-10.3); Carbon Dioxide 27.3 mmol/L (21.6-31.8); Globulin 2.4 g/dL (1.6-3.3); Non-African American GFR(CKD) 53.9 (60.0-200.0); Potassium 4.1 mmol/L (3.5-5.5); Total Bilirubin 0.7 mg/dL (0.2-1.2); Total Protein 7.1 g/dL (6.2-8.2)
[2019-06-29 11:54] LABS: T4/T8 Ratio (CD4:CD8) 0.9 (1.0-3.7)
[2019-06-29 13:25] LABS: HIV-1 RNA DETECTED (Not detected); HIV-1 RNA, Quant <40 Copies/mL (<40)
== END | disposition home or self-care (01) ==
LOC: LABWHC1 09:44
PROVIDERS: ATTEND Internal Medicine Infectious Disease
DX: B20 Human immunodeficiency virus [HIV] disease (principal)
CPT/HCPCS: 36415; 80053; 85025; 86360; 87536

== ENCOUNTER 2019-09-04 13:26 | Emergency (ER) | payer MEDICARE, OTHER ==
[2019-09-04] MEDS ORDERED: KETOROLAC 60 MG/2 ML VIAL IM STA (14:02)
[2019-09-04] MEDS ORDERED: MORPHINE SULFATE 4 MG/ML SYRINGE IM STA (14:02)
[2019-09-04] MEDS ORDERED: ORPHENADRINE 30 MG/ML 2 ML VIAL IM STA (14:02)
--- NOTE | 2019-09-04 14:14 | ED ---
Back Pain HPI - General Chief Complaint: Back Pain/Injury Stated Complaint: lower back pain Time Seen by Provider: 09/04/19 13:41 Source: patient, RN notes reviewed, old records reviewed - History of Present Illness Initial Comments: Patient is a 48-year-old male presents return today with right lower back pain after working in the yard this past week. He states that he felt a pulling injury and a pop. He has history of chronic back pain radiculopathy. Denies saddle anesthesias. He reports that pain is worse throughout the week and he had a cancel his appointment with Dr. Woo because he just felt that he could not walk or get to the car and drive while because of the back pain. He reports pain is worse with going from sitting to standing. He states that he has had his gabapentin and tramadol and baclofen wthout relief. - Related Data Home Medications Medication Instructions Recorded Confirmed Albuterol Inhaler (Mhu) [Ventolin 2 puff INHALATION RT-Q4H PRN 12/02/13 02/18/19 Inhaler] Baclofen 10 mg PO TID 12/02/13 02/18/19 Citalopram Hydrobromide 40 mg PO BID 12/02/13 02/18/19 [Citalopram HBr] Fluticasone Propionate [Flonase] 1 spray EA NOSTRIL DAILY 12/02/13 02/18/19 amLODIPine BESYLATE [Amlodipine 10 mg PO QAM 12/02/13 02/18/19 Besylate] traMADol HCL [Tramadol HCl] 50 mg PO Q6HR PRN 12/02/13 02/18/19 Pregabalin [Lyrica] 150 mg PO BID 03/02/15 02/18/19 Docusate [Colace] 100 mg PO TID 06/23/15 02/18/19 Doxazosin Mesylate [Cardura] 8 mg PO BID 02/15/16 02/18/19 Montelukast Sodium [Singulair] 10 mg PO DAILY 02/15/16 02/18/19 Albuterol Nebulized [Ventolin 2.5 mg INHALATION Q6H PRN 06/14/17 02/18/19 Nebulized] Ergocalciferol [Vitamin D2 50,000 unit PO MO 06/14/17 02/18/19 (DRISDOL)] Multivitamins, Thera [Multivitamin 1 tab PO DAILY 06/14/17 02/18/19 (formulary)] Omeprazole [PriLOSEC] 40 mg PO DAILY 06/14/17 02/18/19 Furosemide [Lasix] 40 mg PO DAILY 02/18/19 02/18/19 Potassium Chloride ER [K-Dur 20] 20 meq PO DAILY 02/18/19 02/18/19 Pregabalin [Lyrica] 75 mg PO DAILY 02/18/19 02/18/19 Allergies Allergy/AdvReac Type Severity Reaction Status Date / Time bacitracin zinc Allergy Unknown Unknown Verified 02/18/19 13:40 [From Cortisporin] Childhood hydrocortisone Allergy Unknown Unknown Verified 02/18/19 13:40 [From Cortisporin] Childhood neomycin sulfate Allergy Unknown Unknown Verified 02/18/19 13:40 [From Cortisporin] Childhood Penicillins Allergy Unknown Rash/Hives Verified 02/18/19 13:40 polymyxin B Allergy Unknown Unknown Verified 02/18/19 13:40 [From Cortisporin] Childhood pollen extracts Allergy ALLERGY Verified 02/18/19 13:40 SX, RASH ON ARMS WHOLE MILK Allergy Rash/Hives Uncoded 02/18/19 13:40 Review of Systems ROS Statement: Those systems with pertinent positive or pertinent negative responses have been documented in the HPI. ROS Other: All systems not noted in ROS Statement are negative. Past Medical History Past Medical History: Asthma, Hearing Disorder / Deafness, Hypertension, Musculoskeletal Disorder, Sleep Apnea/CPAP/BIPAP Additional Past Medical History / Comment(s): HIV positive, STABLE, NO RX REQUIRED. bulging disc in lumbar. CPAP. HERNIA REPAIR. GASTRIC SLEEVE. CONDUCTIVE HEARING LOSS MURIEL, RT WORSE. FREQ EAR CLOGGING, RINGING. History of Any Multi-Drug Resistant Organisms: None Reported Past Surgical History: Bariatric Surgery, Cholecystectomy, Ear Surgery, Hernia Repair Additional Past Surgical History / Comment(s): Neck (CHIARI MALFORMATION).RIGHT AND LEFT INGUINAL HERNIA, 03-02-15 GASTRIC SLEEVE Past Anesthesia/Blood Transfusion Reactions: No Reported Reaction Past Psychological History: Anxiety, Depression Smoking Status: Never smoker Past Alcohol Use History: Occasional Past Drug Use History: None Reported - Past Family History Mother Family Medical History: Diabetes Mellitus, Hypertension, Sleep Apnea/CPAP/BIPAP Father Family Medical History: Hypertension General Exam - General Exam Comments Initial Comments: 48-year-old male. Alert and oriented 3. No distress. Resting in bed. General appearance: alert, in no apparent distress Head exam: Present: atraumatic, normocephalic, normal inspection Eye exam: Present: normal appearance, PERRL, EOMI. Absent: scleral icterus, conjunctival injection, periorbital swelling ENT exam: Present: normal exam, mucous membranes moist Neck exam: Present: normal inspection. Absent: tenderness, meningismus, lymphadenopathy Respiratory exam: Present: normal lung sounds bilaterally. Absent: respiratory distress, wheezes, rales, rhonchi, stridor Cardiovascular Exam: Present: regular rate, normal rhythm, normal heart sounds. Absent: systolic murmur, diastolic murmur, rubs, gallop, clicks GI/Abdominal exam: Present: soft, normal bowel sounds. Absent: distended, tenderness, guarding, rebound, rigid Extremities exam: Present: normal inspection, full ROM, normal capillary refill. Absent: tenderness, pedal edema, joint swelling, calf tenderness Back exam: Present: normal inspection, tenderness (Tenderness on the right lumbar spinal region.) Neurological exam: Present: alert, oriented X3, CN II-XII intact Psychiatric exam: Present: normal affect, normal mood Skin exam: Present: warm, dry, intact, normal color. Absent: rash Course Vital Signs 09/04/19 13:36 Temperature 98.5 F Pulse Rate 66 Respiratory 16 Rate Blood Pressure 111/68 O2 Sat by Pulse 97 Oximetry Medical Decision Making - Medical Decision Making 48-year-old male since branch from today for evaluation for right-sided back pain positional description of pain worse with getting from sitting getting up from sitting to standing. At the same Patient has no saddle anesthesias. Normal pulses in bilateral lower extremities. Lower back exam did reveal a skin tear likely from a blister as Patient was putting a heating pad on his back. I discussed no further heating pads for long periods of time of the skin worsen and delay healing for the skin tear. Patient lumbar spine x-ray shows rightward shift concern for muscle spasm and evidence of anterolisthesis which is unchanged L4-L5 from x-ray and her MRI on November 2018. Patient is given IM analgesia is feeling better at this time. I discussed continuing his at home medications with addition to steroid and a short course of her shoulder pain medication on discharge. All questions were answered return parameters were discussed. - Radiology Data Radiology results: report reviewed Rightward truncal shift positional due to muscle spasm. Fast arthropathy and lumbar spine with anterolisthesis L4-L5 similar to that on 11/21/2018. No vertebral collapse. Disposition Clinical Impression: Lumbar back pain, Muscle spasm Disposition: HOME SELF-CARE Condition: Good Instructions (If sedation given, give patient instructions): Acute Low Back Pain (ED) Additional Instructions: Patient advised prompt follow-up with primary care physician and back specialist. Take the medications at home for pain as previous a prescribed. Patient should return to emergency department if any alarming signs or symptoms occur. Is patient prescribed a controlled substance at d/c from ED?: No Referrals: Ramiro Milligan MD [Primary Care Provider] - 1-2 days Time of Disposition: 14:40
--- NOTE | 2019-09-04 14:30 | XR ---
EXAMINATION TYPE: XR lumbar spine 2 or 3V DATE OF EXAM: 09/04/2019 Comparison: 11/21/2018 Clinical History: 48-year-old male pulling injury, right back pain Findings: Cholecystectomy clips. Rightward truncal shift. Facet arthropathy lower lumbar spine. Grade 1 anterol isthesis L4-L5. Disc interspaces are relatively maintained. Mild anterior endplate spondylosis lower lumbar spine. Vertebral body heights are preserved. Impression: 1. Rightward truncal shift may be positional or due to muscle spasm. 2. Facet arthropathy lower lumbar spine with trace grade 1 anterolisthesis at L4-L5, similar to 2018. 3. No vertebral compression collapse.
[2019-09-04 15:50] VITALS: BP 123/70; PULSE 62; RESP 18; TEMP 98.2
== END 2019-09-04 15:50 | disposition home or self-care (01) ==
LOC: EC 13:26
DX: M43.16 Spondylolisthesis, lumbar region (principal); S31.010A Laceration without foreign body of lower back and pelvis without penetration into retroperitoneum, initial encounter; H91.90 Unspecified hearing loss, unspecified ear; G47.30 Sleep apnea, unspecified; F32.9 Major depressive disorder, single episode, unspecified; M62.838 Other muscle spasm; I10 Essential (primary) hypertension; J45.909 Unspecified asthma, uncomplicated; F41.9 Anxiety disorder, unspecified; Z79.899 Other long term (current) drug therapy; Z88.0 Allergy status to penicillin; Z91.011 Allergy to milk products; Z91.048 Other nonmedicinal substance allergy status; Z88.1 Allergy status to other antibiotic agents; Z99.89 Dependence on other enabling machines and devices
CPT/HCPCS: 72100; 96372 ×3; 99284; J2270; J2360; J1885

== ENCOUNTER → 2019-09-16 | Outpatient (CLI) | payer MEDICARE, OTHER ==
[2019-09-17 00:51] LABS: African American GFR (CKD) 57.8 (60.0-200.0); Anion Gap 10.2 mmol/L (4.00-12.00); BUN/Creat Ratio 11.88 Ratio (12.00-20.00); Calcium 8.9 mg/dL (8.7-10.3); Carbon Dioxide 25.8 mmol/L (21.6-31.8); Non-African American GFR(CKD) 49.8 (60.0-200.0); Potassium 3.8 mmol/L (3.5-5.5)
== END | disposition home or self-care (01) ==
LOC: LABWHC1 15:02
PROVIDERS: ATTEND Internal Medicine Infectious Disease
DX: B20 Human immunodeficiency virus [HIV] disease (principal); Z79.899 Other long term (current) drug therapy
CPT/HCPCS: 36415; 80048

== ENCOUNTER → 2019-09-17 | Outpatient (CLI) | payer MEDICARE, OTHER ==
--- NOTE | 2019-09-17 22:14 | SFUN ---
SLEEP CENTER FOLLOW UP NOTE DATE OF SERVICE: 09/17/2019 This patient is a 48-year-old gentleman who has been followed in the sleep center for treatment of obstructive sleep apnea-hypopnea syndrome. The patient is on treatment with CPAP. He does not seem comfortable with the mask. [place] Sleepiness Scale today is 8, which is within normal range. I checked his CPAP unit. CPAP pressure is 9 cm of water. Usage is 2/30 nights. Average usage 2.2 hours. Very bad compliance. MEDICATIONS: Amlodipine, omeprazole, Januvia, montelukast, doxazosin, tramadol, pregabalin, baclofen, citalopram, multivitamins, Ventolin, albuterol, Breo inhaler, vitamin D. PHYSICAL EXAMINATION: GENERAL: A pleasant patient in no distress. VITAL SIGNS: BP 124/81, HR 70, RR 16, height 5 feet 8 inches, weight 287 pounds, BMI 43.6, temperature 99.0, oxygen saturation at room air 92%. HEENT: PERRLA, EOMI. Evaluation of oropharynx showed tongue protrudes midline. Moderately low position of soft palate. Restriction of nasal breathing. NECK: Supple. No JVD. Thyroid is not palpable. LUNGS: Clear to percussion and to auscultation. Good air exchange. No wheezing or rhonchi. HEART: S1, S2 regular. No murmurs, gallops or rubs. ABDOMEN: Obese. EXTREMITIES: No clubbing or cyanosis. PRACTICE MANAGERS: Awake, alert, and oriented X3. Cranial nerves 2 to 7 intact. There is no fasciculation or atrophy. noted. No focal deficits observed. IMPRESSION: 1. Obstructive sleep apnea-hypopnea syndrome. During this visit, patient has not demonstrated good compliance with treatment. 2. Obesity. 3. Hypertension. 4. Asthma. 5. Acid reflux. 6. Back problems. 7. Status post cholecystectomy. PLAN: 1. I discussed with the patient the necessity to use CPAP equipment every night for the whole night. 2. Will try to find for him a different style of CPAP mask. 3. Losing weight. 4. Sleep hygiene with regular time in bed for at least 7-1/2 hours. 5. No driving if feeling any sleepiness. Thank you very much for allowing me to participate in the management of your patient. Sincerely, Efren Torres MD, PhD, FAASM Diplomat of [place] [employer] [place] [employer] Medicine Project Management Specialist of [facility] [place] MMOSCARL / DONALDO: [id number] /
== END | disposition home or self-care (01) ==

== ENCOUNTER → 2019-10-21 | Outpatient (CLI) | payer MEDICARE, OTHER ==
[2019-10-21 13:05] LABS: Basophils % (A) 1 %; Eosinophils # (A) 0.1 k/uL (0-0.7); Eosinophils % (A) 2 %; HCT 41.6 % (39.0-53.0); HGB 13.2 gm/dL (13.0-17.5); Lymphocytes # (A) 2.3 k/uL (1.0-4.8); Lymphocytes % (A) 52 %; MCHC 31.7 g/dL (31.0-37.0); MCV 94.4 fL (80.0-100.0); Monocytes # (A) 0.3 k/uL (0-1.0); Monocytes % (A) 7 %; Neutrophils # (A) 1.6 k/uL (1.3-7.7); Neutrophils % (A) 36 %; Platelet Count 169 k/uL (150-450); RDW 13.3 % (11.5-15.5); WBC 4.4 k/uL (3.8-10.6)
[2019-10-21 20:40] LABS: African American GFR (CKD) 81.2 (60.0-200.0); Albumin 4.3 g/dL (3.80-4.90); Albumin/Globulin Ratio 2.05 (1.60-3.17); Anion Gap 8.7 mmol/L (4.00-12.00); BUN/Creat Ratio 12.5 Ratio (12.00-20.00); Calcium 9.1 mg/dL (8.7-10.3); Carbon Dioxide 27.3 mmol/L (21.6-31.8); Globulin 2.1 g/dL (1.6-3.3); Non-African American GFR(CKD) 70.1 (60.0-200.0); Total Bilirubin 0.7 mg/dL (0.3-1.2); Total Protein 6.4 g/dL (6.2-8.2)
[2019-10-22 11:47] LABS: T4/T8 Ratio (CD4:CD8) 0.9 (1.0-3.7)
== END | disposition home or self-care (01) ==
LOC: LABWHC1 11:55
PROVIDERS: ATTEND Internal Medicine Infectious Disease
DX: B20 Human immunodeficiency virus [HIV] disease (principal)
CPT/HCPCS: 36415; 80053; 85025; 86360; 87536

== ENCOUNTER → 2019-12-08 | Outpatient (CLI) | payer MEDICARE, OTHER | END | disposition home or self-care (01) | LOC: LABPAT 12:52 | PROVIDERS: ATTEND Otolaryngology | DX: H65.493 Other chronic nonsuppurative otitis media, bilateral (principal) | CPT/HCPCS: 36415; 84132; 93005 ==

== ENCOUNTER → 2019-12-10 | Day surgery (SDC) | payer MEDICARE, OTHER ==
[2019-12-08 11:18] VITALS: BMI 45.4
[~2019-12-10] MED LIST changes: +CIPROFLOX/FLUOCIN OTIC 0.25ML DROPERETTE OT ONE; +DEXAMETHASONE SOD PHOSPHATE 10 MG/ML 1 ML VIAL IV ONE; +LIDOCAINE 1% (10MG/ML) FOR IV START INTRADERMA PRN; +LIDOCAINE 1% INJ 10MG/ML (20 ML MDV) ONE; +MIDAZOLAM 2 MG/2 ML VIAL ONE; -MORPHINE SULFATE 2 MG/ML SYRINGE IV PRN; +PROPOFOL 10 MG/ML 20 ML VIAL IV ONE; -Pre Op ABX Message 1 EACH MISC MISCELLANE ONE; +SUCCINYLCHOLINE CHLORIDE VIAL 200 MG/10 ML VIAL IV ONE; +ceFAZolin 3 GM in SODIUM CHLORIDE 0.9% 100 ML IVPB ONE; +fentaNYL (PF) 50 MCG/ML 2 ML AMP ONE; +metroNIDAZOLE-NS PMX 500 MG in SALINE 1 100ML.BAG IVPB ONE
[2019-12-10 09:07] VITALS: RESP 16
[2019-12-10 10:58] VITALS: TEMP 96.9
--- NOTE | 2019-12-10 11:25 | P.OP ---
Date of Procedure: 12/10/19 Preoperative Diagnosis: Chronic otitis media with effusion, chronic separate of otitis media, MYRINGO- incudostapedial pexy Postoperative Diagnosis: SAME Procedure(s) Performed: Bilateral direct microscopic tympanostomy and tube placement placing an ultra seaL tube on the right and a T-tube on the left. Bilateral myringoplasty's, removal of bilateral tubes through tympanostomy incisions Anesthesia: RUTHY Surgeon: Miko Owen Pathology: none sent Condition: stable Disposition: PACU Indications for Procedure: This patient has had persistent middle ear effusion bilaterally with conductive hearing loss. The patient has severe retraction bilaterally he is getting of breakdown of the middle ear ossicles from his ossicular chain reconstruction. Removal of old nonfunctioning tubes and placement of new tubes with patching of the holes are recommended. All risks, benefits, and alternative therapies were discussed. Consent was obtained and all questions were answered. Operative Findings: Patient had bilateral severe retraction. An jami fluid was noted bilaterally. Ultra-Gricel tube was placed on the right was no room for a triune tube wait T- tube. The left side had a T-tube placed. The holes were patched with a bio design graft. Description of Procedure: Patient was taken to the operative room and placed in the supine position. A general inhalation anesthetic was administered to the patient and intubated by the department of anesthesia and monitored throughout the entire case by the department of anesthesia. The right ureter was visualized with a 250 mm Leica microscope and a tympanostomy incision was made and an old tube that was nonfunctioning was removed. A large amount of purulent an jami secretions were removed from the middle ear space. There is a tremendous amount of scarring from previous ear surgeries. A Ultra-Gricel tube was placed. We were unable to place a T-tube or a triune tube because of the scarring. This did ventilate the ear quite well and we prepped the drumhead with the whole was from the previous tube and a Gelfilm myringoplasty was performed utilizing a bio design graft. The Ultra-Gricel tube was in excellent position on the right side. The whole was patched quite nicely and then we went to the contralateral side. The left ear was visualized under high-powered microscope. Tympanostomy incision was made and a triune tube was removed that was nonfunctioning. Tympanostomy incision was made and a T-tube was placed. The drumhead was prepped and a myringoplasty was performed and we placed the bio design graft over the perforation on the left side after we prepped the drumhead and remove the nonviable tympanic membrane tissue. Patient tolerated this well. The patient was discharged with ofloxacin drops and a recheck is scheduled for 1 week. To summarize we removed old tubes and patch the holes with a bio design graft. We made tympanostomy incisions and new tubes were placed. All the discolored material was removed from the middle ear and the patient tolerated this well.
[2019-12-10 12:29] VITALS: BP 1006/66; PULSE 64
== END | disposition home or self-care (01) ==
LOC: OR 08:37
PROVIDERS: ATTEND Otolaryngology
DX: H65.493 Other chronic nonsuppurative otitis media, bilateral (principal); I11.9 Hypertensive heart disease without heart failure; J45.909 Unspecified asthma, uncomplicated; B20 Human immunodeficiency virus [HIV] disease; E66.9 Obesity, unspecified; Z68.42 Body mass index [BMI] 45.0-49.9, adult; Z98.84 Bariatric surgery status; Z82.49 Family history of ischemic heart disease and other diseases of the circulatory system; Z98.890 Other specified postprocedural states; Z79.899 Other long term (current) drug therapy; Z91.048 Other nonmedicinal substance allergy status; Z88.1 Allergy status to other antibiotic agents; Z88.0 Allergy status to penicillin; Z91.011 Allergy to milk products; Z88.8 Allergy status to other drugs, medicaments and biological substances
CPT/HCPCS: 69436; C1763; J2250; J0330; J1100; J0690; J2001; J3010; J2704

== ENCOUNTER → 2020-04-21 | Outpatient (CLI) | payer MEDICARE, OTHER ==
--- NOTE | 2020-04-21 16:12 | SFUN ---
SLEEP CENTER FOLLOW UP NOTE DATE OF SERVICE: 04/21/2020 This 49-year-old gentleman had been followed in Sleep Center for treatment of obstructive sleep apnea-hypopnea syndrome. Last time I saw patient on 09/17/2019 and at that time patient unfortunately did not demonstrate a good compliance with treatment. Average usage of that time 2.2 hours per night and was usage 2 out of 30 nights. Today, patient told that he is trying to use CPAP equipment for the whole night, but his electrical cord had some measures and he apply to [employer] to replace the broken part in the machine. I checked his CPAP unit. CPAP pressure 9 cm of water. Usage is 2 out of 30 nights for more than 4 hours with average usage 2.6 hours per night. Last night patient used it for 6.5 hours. Machine does not have information about apnea-hypopnea index. [place] Sleepiness Scale today is zero. MEDICATIONS: Trelegy inhaler, amlodipine 10 mg once a day, omeprazole 10 mg once a day, 150 mg a day, montelukast, doxazosin 5 mg once a day, tramadol 50 mg, pregabalin 150 mg, baclofen 10 mg, citalopram, Ventolin, albuterol. PHYSICAL EXAMINATION: GENERAL: Patient in no distress. VITAL SIGNS: BP 134/81, HR 62, RR 12, height 5 feet 8 inches, weight 298 pounds, body mass index 45.3, temperature 97.9, oxygen saturation at room air 95%. HEENT: PERRLA, EOMI. Oropharynx moderately low position of soft palate. NECK: Supple, no JVD. Thyroid is not palpable. LUNGS: Clear to percussion and to auscultation. Good air exchange. No wheezing or rhonchi. HEART: S1, S2 regular. No murmurs, gallops, or rubs. ABDOMEN: Obese. EXTREMITIES: No clubbing or cyanosis. PSYCH SPECIALIST: Awake, alert, and oriented X3. Cranial nerves 2 to 7 intact. There is no fasciculation or atrophy. noted. No focal deficits observed. IMPRESSION: 1. Obstructive sleep apnea-hypopnea syndrome. Presently patient does not demonstrate good compliance with treatment. 2. Obesity. 3. Hypertension. 4. Asthma. 5. Acid reflux. 6. Back problems. 7. Status post cholecystectomy. PLAN: 1. The patient should continue to use CPAP equipment every night for the whole night. 2. To replace electrical cord in the CPAP unit. 3. Sleep hygiene with regular time in bed for at least 7-1/2 to 8 hours. 4. No driving if feeling any sleepiness. 5. Follow-up visit in 2 months to re-evaluate patient compliance with treatment. Thank you very much for allowing me to participate in management of your patient. Sincerely, Efren Torres MD, PhD, FAASM Diplomat of [place] Board of Medical Specialties [employer] [place] Board of Internal Medicine Manager Eligibility of [facility] [place] MMODL / IJN: [id number] /
== END | disposition home or self-care (01) ==
LOC: SLEEP 11:50
PROVIDERS: ATTEND Internal Medicine
DX: G47.33 Obstructive sleep apnea (adult) (pediatric) (principal); I10 Essential (primary) hypertension; K21.9 Gastro-esophageal reflux disease without esophagitis; M54.5 Low back pain; E66.9 Obesity, unspecified; Z90.49 Acquired absence of other specified parts of digestive tract; J45.909 Unspecified asthma, uncomplicated; Z79.899 Other long term (current) drug therapy; Z79.891 Long term (current) use of opiate analgesic; Z99.89 Dependence on other enabling machines and devices

== ENCOUNTER → 2020-05-26 | Outpatient (CLI) | payer MEDICARE, OTHER ==
[2020-05-26 18:41] LABS: Basophils # (A) 0.01 X 10*3/uL (0.00-0.10); Basophils % (A) 0.1 %; Eosinophils # (A) 0 X 10*3/uL (0.04-0.35); Eosinophils % (A) 0 %; HCT 42.1 % (39.6-50.0); Lymphocytes # (A) 1.64 X 10*3/uL (0.90-5.00); Lymphocytes % (A) 23.6 %; MCH 31.1 pg (27.0-32.0); MCHC 33.3 g/dL (32.0-37.0); MCV 93.6 fL (80.0-97.0); Mean Platelet Volume 11.5 fL (9.5-12.2); Monocytes # (A) 0.36 X 10*3/uL (0.20-1.00); Monocytes % (A) 5.2 %; Neutrophils # (A) 4.92 X 10*3/uL (1.80-7.70); Neutrophils % (A) 70.7 %; Platelet Count 259 X 10*3/uL (140-440); RDW 13.2 % (11.5-14.5); WBC 6.96 X 10*3/uL (4.50-10.00)
[2020-05-26 21:50] LABS: African American GFR (CKD) 53.3 (60.0-200.0); Anion Gap 10.9 mmol/L (4.00-12.00); BUN/Creat Ratio 11.76 Ratio (12.00-20.00); Calcium 9.9 mg/dL (8.7-10.3); Carbon Dioxide 27.1 mmol/L (21.6-31.8)
[2020-05-27 10:40] LABS: T4/T8 Ratio (CD4:CD8) 0.6 (1.0-3.7)
== END | disposition home or self-care (01) ==
LOC: LABWHC1 14:41
PROVIDERS: ATTEND Internal Medicine Infectious Disease
DX: B20 Human immunodeficiency virus [HIV] disease (principal)
CPT/HCPCS: 36415; 80048; 85025; 86360; 87536

== ENCOUNTER → 2020-07-14 | Outpatient (CLI) | payer MEDICARE, OTHER ==
--- NOTE | 2020-07-14 20:20 | SFUN ---
SLEEP CENTER FOLLOW UP NOTE DATE OF SERVICE: 07/14/2020 This 49-year-old gentleman has been followed in Sleep Center for treatment of obstructive sleep apnea-hypopnea syndrome. During his previous visit I checked his CPAP unit and recommended replacement of the electrical cord for the machine. The electrical cord has been replaced, but the CPAP unit still sometimes goes off. I checked his CPAP unit, and it does not go on well. [place] Sleepiness Scale is zero. MEDICATIONS: 1. Amlodipine 10 mg once a day. 2. Omeprazole 40 mg once a day. 3. 150 mg once a day. 4. Montelukast 10 mg once a day. 5. Doxazosin 8 mg once a day. 6. Tramadol 50 mg up to 3 times a day. 7. Pregabalin 150 mg 3 times a day. 8. Baclofen 10 mg 3 times a day. 9. Citalopram 40 mg twice a day. 10.Ventolin 90 mcg as needed. 11.Symbicort 160/4.5 as needed. PHYSICAL EXAMINATION: GENERAL: A pleasant patient in no distress. VITAL SIGNS: BP 122/81, HR 58, RR 15, height 5 feet 7-1/2 inches, weight 310.2 pounds, temperature 97.4, oxygen saturation at room air 93%. Body mass index 47.8. HEENT: JNRALVAREZ, EOMI. Evaluation of oropharynx showed tongue protrudes midline. Moderately low position of soft palate. Mallampati III. NECK: Supple. No JVD. Thyroid is not palpable. LUNGS: Clear to percussion and to auscultation. Good air exchange. No wheezing or rhonchi. HEART: S1, S2 regular. No murmurs, gallops or rubs. ABDOMEN: Obese. EXTREMITIES: No clubbing or cyanosis. OPTICAL GOODS DRILLING MACHINE OPERATOR: Awake, alert, and oriented X3. Cranial nerves 2 to 7 intact. There is no fasciculation or atrophy. noted. No focal deficits observed. IMPRESSION: 1. Obstructive sleep apnea-hypopnea syndrome. CPAP unit does not work. 2. Obesity. 3. Hypertension. 4. Asthma. 5. Acid reflux. 6. Back problems. 7. Status post cholecystectomy. PLAN: 1. Prescription to replace CPAP unit with unit with automatic options, range of pressure 7 to 12. 2. Patient will continue to use PAP equipment every night for the whole night. 3. Sleep hygiene with regular time in bed for at least 7-1/2 to 8 hours. 4. Precautions related to driving. No driving if feeling sleepiness. 5. I will maintain all necessary prescription for PAP supplies including mask, tube, filters. 6. Watching weight. 7. Follow-up visit in 30 to 90 days after patient gets his new CPAP unit. Thank you very much for allowing me to participate in the management of your patient. Sincerely, Efren Torres MD, PhD, FAASM Diplomat of [place] Board of Medical Specialties [place] Board of Internal Medicine Product Assurance Engineer of [facility] [place] MMODL / IJN: [id number] /
== END ==
LOC: SLEEP 15:07
PROVIDERS: ATTEND Internal Medicine
DX: G47.33 Obstructive sleep apnea (adult) (pediatric) (principal); E66.9 Obesity, unspecified; I10 Essential (primary) hypertension; J45.909 Unspecified asthma, uncomplicated; K21.9 Gastro-esophageal reflux disease without esophagitis; Z90.49 Acquired absence of other specified parts of digestive tract; Z88.0 Allergy status to penicillin; Z91.011 Allergy to milk products; Z88.1 Allergy status to other antibiotic agents; Z91.048 Other nonmedicinal substance allergy status

== ENCOUNTER → 2020-10-12 | Outpatient (CLI) | payer MEDICARE, OTHER ==
[2020-10-12 23:18] LABS: Basophils # (A) 0.03 X 10*3/uL (0.00-0.10); Basophils % (A) 0.7 %; Eosinophils % (A) 2.4 %; HCT 41.7 % (39.6-50.0); HGB 13.6 g/dL (13.0-17.0); Lymphocytes # (A) 2.27 X 10*3/uL (0.90-5.00); Lymphocytes % (A) 53.4 %; MCH 30.8 pg (27.0-32.0); MCHC 32.6 g/dL (32.0-37.0); MCV 94.6 fL (80.0-97.0); Mean Platelet Volume 11.7 fL (9.5-12.2); Monocytes # (A) 0.51 X 10*3/uL (0.20-1.00); Neutrophils # (A) 1.33 X 10*3/uL (1.80-7.70); Neutrophils % (A) 31.3 %; Platelet Count 183 X 10*3/uL (140-440); RBC 4.41 X 10*6/uL (4.40-5.60); RDW 13.3 % (11.5-14.5); WBC 4.25 X 10*3/uL (4.50-10.00)
[2020-10-13 10:50] LABS: T4/T8 Ratio (CD4:CD8) 0.7 (1.0-3.7)
[2020-10-13 17:13] LABS: African American GFR (CKD) 57.4 (60.0-200.0); Anion Gap 15.2 mmol/L (4.00-12.00); Calcium 9.2 mg/dL (8.7-10.3); Carbon Dioxide 22.8 mmol/L (21.6-31.8); Non-African American GFR(CKD) 49.5 (60.0-200.0); Potassium 3.9 mmol/L (3.5-5.5)
== END | disposition home or self-care (01) ==
LOC: LABWHC1 14:56
PROVIDERS: ATTEND Internal Medicine Infectious Disease
DX: B20 Human immunodeficiency virus [HIV] disease (principal)
CPT/HCPCS: 36415; 80048; 85025; 86360; 87536

== ENCOUNTER → 2020-11-23 | Outpatient (CLI) | payer MEDICARE, OTHER ==
--- NOTE | 2020-11-23 21:28 | SFUN ---
SLEEP CENTER FOLLOW UP NOTE DATE OF SERVICE: This 50-year-old gentleman has been followed in Sleep Center for treatment of obstructive sleep apnea-hypopnea syndrome. The patient received a new CPAP unit, and today is his first visit after he started to use new CPAP equipment. The patient likes his new CPAP machine and is using it every night without significant problems. [place] Sleepiness Scale today is zero. I checked his CPAP unit. Range of the pressure is 7-14 with average pressure 9 cm of water. Usage is 28/30 nights, and 21/30 nights for more than 4 hours, average usage 4.1 hours per night. Leak is 17 L/minute. Apnea-hypopnea index is 4.8, which is in normal range. MEDICATIONS: 1. Amlodipine 10 mg once a day. 2. Omeprazole 40 mg once a day. 3. Montelukast 10 mg once a day. 4. Doxazosin 8 mg once a day. 5. Tramadol 50 mg up to 3 times a day. 6. Pregabalin 150 mg 3 times a day. 7. Baclofen 10 mg 3 times a day. 8. Citalopram 40 mg twice a day. 9. Ventolin 90 mcg as needed. 10.Symbicort 160/4.5 mg as needed. PHYSICAL EXAMINATION: GENERAL: Pleasant patient in no distress. VITAL SIGNS: BP 106/66, HR 65, RR 12, weight 317.4 pounds, temperature 96.5, oxygen saturation at room air 94%. HEENT: PERRLA, EOMI, evaluation of oropharynx showed tongue protrudes midline. Low position of soft palate. NECK: Supple, no JVD. Thyroid is not palpable. LUNGS: Clear to percussion and to auscultation. Good air exchange. No wheezing or rhonchi. HEART: S1, S2 regular. No murmurs, gallops, or rubs. ABDOMEN: Obese. EXTREMITIES: No clubbing or cyanosis. CLOTH CUTTING INSPECTOR: Awake, alert, and oriented X3. Cranial nerves 2 to 7 intact. There is no fasciculation or atrophy. noted. No focal deficits observed. IMPRESSION: 1. Obstructive sleep apnea-hypopnea syndrome. Patient demonstrated good compliance with treatment, benefitting from treatment. 2. Obesity. 3. Hypertension. 4. History of asthma. 5. Acid reflux. 6. Back problems. 7. Status post cholecystectomy. PLAN: 1. I discussed with the patient the position of the machine cleaning equipment. 2. Patient will continue to use PAP equipment every night for the whole night. 3. Sleep hygiene with regular time in bed for at least 7-1/2 to 8 hours. 4. Precautions related to driving. No driving if feeling sleepiness. 5. I will maintain all necessary prescription for PAP supplies including mask, tube, filters. 6. Watching weight. 7. Follow-up visit in 6 months or earlier if patient has any problems. Thank you very much for allowing me to participate in the management of your patient. Sincerely, Efren Torres MD, PhD, FAASM Diplomat of [place] [employer] Specialties Sleep Medicine Board of [place] Board of Internal Medicine Distance Education Faculty Liaison of [facility] [place] DASH / DONALDO: [id number] /
== END | disposition home or self-care (01) ==
LOC: SLEEP 13:27
PROVIDERS: ATTEND Internal Medicine
DX: G47.33 Obstructive sleep apnea (adult) (pediatric) (principal); E66.9 Obesity, unspecified; I10 Essential (primary) hypertension; K21.9 Gastro-esophageal reflux disease without esophagitis; Z87.09 Personal history of other diseases of the respiratory system; Z90.49 Acquired absence of other specified parts of digestive tract

== ENCOUNTER → 2021-01-02 | Outpatient (CLI) | payer MEDICARE, OTHER ==
--- NOTE | 2021-01-03 10:51 | US ---
EXAMINATION TYPE: US kidneys/renal and bladder DATE OF EXAM: 01/02/2021 COMPARISON: NONE CLINICAL HISTORY: N17.9 Acute kidney injury. CHRISTY, no symptoms EXAM MEASUREMENTS: Right Kidney: 10.2 x 5.3 x 5.4 cm Left Kidney: 10.4 x 4.6 x 5.5 cm Right Kidney: No hydronephrosis or masses seen Left Kidney: No hydronephrosis or masses seen Bladder: wnl Bilateral Jets seen: Yes IMPRESSION: Normal renal ultrasound
== END | disposition home or self-care (01) ==
LOC: RADUSWWP 16:32
PROVIDERS: ATTEND Internal Medicine Nephrology
DX: N17.9 Acute kidney failure, unspecified (principal)
CPT/HCPCS: 76770

== ENCOUNTER → 2021-05-24 | Outpatient (CLI) | payer MEDICARE, OTHER ==
--- NOTE | 2021-05-24 20:00 | SFUN ---
SLEEP CENTER FOLLOW UP NOTE DATE OF SERVICE: 05/24/2021 This 50-year-old gentleman has been followed in Sleep Center for treatment of obstructive sleep apnea-hypopnea syndrome. The patient continues to use his CPAP equipment every night, getting his supplies on time. No snoring. [place] Sleepiness Scale today is zero, which is perfect. I checked his CPAP unit. Range of the pressure is 7 to 14, average pressure 8.9 cm of water. Usage is 28/30 nights and 26/30 nights more than 4 hours, average 4.5 hours per night. Leak is 18 L/minute, which is borderline. Apnea-hypopnea index is 2.5, which is normal. The CPAP machine air filter is in very bad condition and needs to be changed immediately. CURRENT MEDICATIONS: 1. Omeprazole 40 mg once a day. 2. Albuterol inhaler on p.r.n. basis. 3. Januvia. 4. Tramadol. 5. Baclofen. 6. Pregabalin 150 mg 3 times a day. 7. Citalopram 40 mg twice a day. 8. Montelukast 10 mg once a day. 9. Doxazosin 8 mg once a day for allergies on p.r.n. basis. PHYSICAL EXAMINATION: GENERAL: Pleasant patient in no distress. VITAL SIGNS: BP 125/84, HR 58, RR 16. Weight 309.5 pounds. Patient lost 8 pounds since previous visit. Temperature 96.9, oxygen saturation at room air 95%. IMPRESSION: 1. Obstructive sleep apnea-hypopnea syndrome. Patient demonstrated good compliance with treatment, benefitting from treatment. Normal respiration on CPAP. 2. Hypertension. 3. Obesity. 4. Asthma. 5. Acid reflux. 6. Back problems. 7. Status post cholecystectomy. PLAN: 1. To change air filter immediately. 2. Patient will continue to use PAP equipment every night for the whole night. 3. Sleep hygiene with regular time in bed for at least 7-1/2 to 8 hours. 4. Precautions related to driving. No driving if feeling sleepiness. 5. I will maintain all necessary prescription for PAP supplies including mask, tube, filters. 6. Watching weight. 7. Follow-up visit in 6 months or earlier if patient has any problems. Thank you very much for allowing me to participate in the management of your patient. Sincerely, Efren Torres MD, PhD, FAASM Diplomat of [place] [employer] Medical Specialties Sleep Medicine Board of [place] Board of Internal Medicine Single Stroke Preformer of [facility] [place] MMMADELINE / DONALDO: [id number] /
== END | disposition home or self-care (01) ==
LOC: SLEEP 14:35
PROVIDERS: ATTEND Internal Medicine
DX: G47.33 Obstructive sleep apnea (adult) (pediatric) (principal); I10 Essential (primary) hypertension; E66.9 Obesity, unspecified; J45.909 Unspecified asthma, uncomplicated; K21.9 Gastro-esophageal reflux disease without esophagitis; Z90.49 Acquired absence of other specified parts of digestive tract

== ENCOUNTER → 2021-08-01 | Outpatient (CLI) | payer MEDICARE, OTHER ==
[~2021-08-01] MED LIST changes: -CIPROFLOX/FLUOCIN OTIC 0.25ML DROPERETTE OT ONE; -DEXAMETHASONE SOD PHOSPHATE 10 MG/ML 1 ML VIAL IV ONE; -FAMOTIDINE 20 MG/2 ML VIAL IV ONE; -LACTATED RINGERS 1,000 ML IV SCH; -LIDOCAINE 1% (10MG/ML) FOR IV START INTRADERMA PRN; -LIDOCAINE 1% INJ 10MG/ML (20 ML MDV) ONE; -MIDAZOLAM 2 MG/2 ML VIAL ONE; -PROPOFOL 10 MG/ML 20 ML VIAL IV ONE; +REGADENOSON 0.4 MG/5 ML SYRINGE IV PRN; -SUCCINYLCHOLINE CHLORIDE VIAL 200 MG/10 ML VIAL IV ONE; -ceFAZolin 3 GM in SODIUM CHLORIDE 0.9% 100 ML IVPB ONE; -fentaNYL (PF) 50 MCG/ML 2 ML AMP ONE; -metroNIDAZOLE-NS PMX 500 MG in SALINE 1 100ML.BAG IVPB ONE
--- NOTE | 2021-08-01 12:08 | NM ---
EXAMINATION TYPE: NM stress lexiscan cardiolite DATE OF EXAM: 08/01/2021 COMPARISON: NONE HISTORY: Dizziness. History of hypertension. TECHNIQUE: After the intravenous administration of 9.8 mCi Tc 99m Sestamibi - Cardiolite resting SPE CT images acquired 60 minutes post injection. The patient received 0.4mg Lexiscan, 24.8 mCi Tc 99m Sestamibi - Stress images obtained [address] injection FINDINGS: Review of stress and rest SPECT images demonstrates diminished radiotracer uptake involving anterolat eral wall on stress images versus rest images seen best on short axis images towards the mid to apica l level, this also appears present on the vertical long axis images. Acute ischemia at this level can not be excluded. Follow-up is advised. Gated analysis shows estimated left ventricular ejection fract ion of 54%. IMPRESSION: Possible acute ischemia anterolateral left ventricular wall. The need to further investig ate with direct catheter angiogram should be based on clinical along with EKG correlation.
--- NOTE | 2021-08-03 10:20 | CA ---
Lexiscan Nuclear Stress Test Report Name: Yoseph Morillo Exam Date: 08/01/2021 10:22 Exam Location: [facility] Ht (in): 67 Wt (lb): 300 BSA: 2.40 Ordering Phys: Chaparro Reyes Referring Phys: PUMA,, Technologist: Reid Huang Age: 50 Gender: M : 1970 Procedure CPT: Indications: R42 Dizziness ICD-10 Codes: Patient History: DIFFICULTY IN BREATHING, NUMBNESS IN FACE/NECK, HTN, ASTHMA Medications: OMEPRAZOLE,,,,,, ALBUTEROL,,,,,MONTELUKAST...TRAMADOL...PREG BALIN...CITALOPRAM...BACLOFEN Meds past 24 hrs: Pretest Chest Pain: STRESS TEST Lexiscan Protocol Exercise Duration (min:sec): 01:[address] Depressions (mm): Angina Score: Garg Score: Resting HR (bpm): 50 Peak HR (bpm): 69 Resting BP (mmHg): 142 / 81 Peak BP (mmHg): 142 / 81 MPHR: 169 Target HR: 144 % MPHR: 41 METS: 1.0 Total Dose: Peak Dose: Atropine: Double Product: 9798 BP Response: Stress Termination: Stress Symptoms: Stress Summary: ECG ANALYSIS Resting ECG: Stress ECG: CONCLUSIONS At baseline EKG showed normal sinus rhythm, normal axis, no significant ST or T wave abnormalities. Patient recieved IV infusion of Lexiscan 0.4mg and at peak infusion EKG showed no significant change from baseline. Conclusions: 1. Normal EKG response to Lexiscan infusion 2. Nuclear imaging to be reported separately. Dr. Bernabe Gallegos DO (Electronically Signed) Final Date: 03 August 2021 10:19
== END | disposition home or self-care (01) ==
LOC: RADNMMAIN 08:34
PROVIDERS: ATTEND Family Medicine
DX: R42 Dizziness and giddiness (principal)
CPT/HCPCS: 93017; 78452; A9500; J2785

== ENCOUNTER 2022-06-12 14:16 | Observation (INO) | payer MEDICARE, OTHER ==
[2022-06-12] MEDS ORDERED: SODIUM CHLORIDE 0.9% 1,000 ML IV STA (15:20)
[2022-06-12] MEDS ORDERED: LORazepam 2 MG/ML INJ IV STA (15:20)
[2022-06-12] MEDS ORDERED: ONDANSETRON 4 MG/2 ML VIAL IVP STA (15:20)
[2022-06-12 16:01] LABS: Basophils % (A) 1 %; Eosinophils # (A) 0.1 k/uL (0-0.7); Eosinophils % (A) 1 %; HCT 42.3 % (39.0-53.0); HGB 13.9 gm/dL (13.0-17.5); Lymphocytes # (A) 1.9 k/uL (1.0-4.8); Lymphocytes % (A) 52 %; MCH 31.2 pg (25.0-35.0); MCHC 32.9 g/dL (31.0-37.0); MCV 94.7 fL (80.0-100.0); Mean Platelet Volume 9.2; Monocytes # (A) 0.2 k/uL (0-1.0); Monocytes % (A) 7 %; Neutrophils # (A) 1.3 k/uL (1.3-7.7); Neutrophils % (A) 36 %; Platelet Count 184 k/uL (150-450); RBC 4.47 m/uL (4.30-5.90); RDW 13.4 % (11.5-15.5); WBC 3.6 k/uL (3.8-10.6)
[2022-06-12 16:07] LABS: Albumin 4.3 g/dL (3.5-5.0); Magnesium 2.3 mg/dL (1.6-2.3); Potassium 4.3 mmol/L (3.5-5.1); Total Bilirubin 0.8 mg/dL (0.2-1.3); Total Protein 6.8 g/dL (6.3-8.2)
--- NOTE | 2022-06-12 16:12 | XR ---
EXAMINATION TYPE: XR chest 1V portable DATE OF EXAM: 06/12/2022 HISTORY: Shortness of breath. COMPARISON: None. TECHNIQUE: Single view of the chest is submitted. FINDINGS: Demonstrated are scattered senescent parenchymal change. There is no evidence for focal infiltrate. The heart is stable. Hilar and mediastinal structures are within normal limits. Degenerative changes are seen of the dorsal spine. IMPRESSION: 1. Chronic changes without evidence for acute pulmonary disease.
[2022-06-12 16:15] LABS: INR 0.9 (<1.2); Partial Thromboplastin Time 24.7 sec (22.0-30.0)
--- NOTE | 2022-06-12 16:32 | ED ---
Chest Pain [facility] - General Chief Complaint: Chest Pain Stated Complaint: Chest Pain Time Seen by Provider: 06/12/22 15:20 Source: patient, RN notes reviewed, old records reviewed Mode of arrival: ambulatory Limitations: no limitations - History of Present Illness Initial Comments: This is a 51-year-old male here for evaluation today. Patient presents today for evaluation regards to chest pain 3-4 days of chest pain debility chest pain that is when he states for evaluation for doing his activities of daily living is not getting up by taking care of himself fall which she does attribute to some anxiety chest pain does come anxiety is left-sided with no shortness of breath. There is some Heaviness and tightness in his chest. Patient has no history of high blood pressure high cholesterol no diabetes he is a nonsmoker. No significant outside influences causing this increased anxiety. No significant life stressors not homicidal or suicidal, no drugs or alcohol. Patient states he does have current chest pain not low modifying factors for chest pain chest pain does get the point where he feels like he needs to grab his chest which does help him with his symptoms. He does have a prior history of a stress test but was quite some time ago he believes was normal. MD Complaint: chest pain, other (Anxiety) -: days(s) (4) Onset: during rest, during exertion Pain Location: substernal Pain Radiation: none Severity: mild Severity scale (1-10): 3 Quality: tightness, heaviness Consistency: intermittent Worsens With: nothing Anginal Symptoms: dyspnea, sense of impending doom Other Symptoms: palpitations - Related Data Home Medications Medication Instructions Recorded Confirmed Baclofen 10 mg PO TID PRN 12/02/13 06/12/22 traMADol HCL [Tramadol HCl] 50 - 100 mg PO TID PRN 12/02/13 06/12/22 Pregabalin [Lyrica] 150 mg PO TID 03/02/15 06/12/22 Montelukast Sodium [Singulair] 10 mg PO DAILY 02/15/16 06/12/22 Albuterol Nebulized [Ventolin 2.5 mg INHALATION RT-TID PRN 06/14/17 06/12/22 Nebulized] Omeprazole [PriLOSEC] 40 mg PO DAILY 06/14/17 06/12/22 Albuterol Sulfate [Ventolin HFA] 2 puff INHALATION RT-Q6H PRN 09/04/19 06/12/22 Doxazosin Mesylate [Cardura] 4 mg PO BID 09/04/19 06/12/22 Elviteg/Cob/Emtri/Tenof Alafen 1 tab PO DAILY 09/04/19 06/12/22 [Genvoya Tablet] Betamethasone Dipropionate 1 applic TOPICAL BID 06/12/22 06/12/22 [Diprolene AF 0.05% Cream] Budesonide/Formoterol Fumarate 2 puff INHALATION RT-BID 06/12/22 06/12/22 [Symbicort 160-4.5 Mcg Inhaler] Citalopram Hydrobromide [CeleXA] 40 mg PO DAILY 06/12/22 06/12/22 Ergocalciferol (Vitamin D2) 1,250 mcg PO Q14D 06/12/22 06/12/22 [Drisdol (50,000 Iu)] Meclizine [Antivert] 12.5 - 25 mg PO BID PRN 06/12/22 06/12/22 Triamcinolone 0.1% Cream [Kenalog 1 applicatio TOPICAL BID 06/12/22 06/12/22 0.1% Cream] Allergies Allergy/AdvReac Type Severity Reaction Status Date / Time bacitracin zinc Allergy Unknown Unknown Verified 06/12/22 15:36 [From Cortisporin] Childhood hydrocortisone Allergy Unknown Unknown Verified 06/12/22 15:36 [From Cortisporin] Childhood neomycin sulfate Allergy Unknown Unknown Verified 06/12/22 15:36 [From Cortisporin] Childhood Penicillins Allergy Unknown Rash/Hives Verified 06/12/22 15:36 polymyxin B Allergy Unknown Unknown Verified 06/12/22 15:36 [From Cortisporin] Childhood pollen extracts Allergy ALLERGY Verified 06/12/22 15:36 SX, RASH ON ARMS cat dander AdvReac Itching Verified 06/12/22 15:36 WHOLE MILK Allergy Rash/Hives Uncoded 06/12/22 14:50 Review of Systems ROS Statement: Those systems with pertinent positive or pertinent negative responses have been documented in the HPI. ROS Other: All systems not noted in ROS Statement are negative. Past Medical History Past Medical History: Asthma, Hearing Disorder / Deafness, Hypertension, Musculoskeletal Disorder, Sleep Apnea/CPAP/BIPAP Additional Past Medical History / Comment(s): HIV positive, STABLE, NO RX REQUIRED. bulging disc in lumbar. CPAP. HERNIA REPAIR. GASTRIC SLEEVE. CONDUCTIVE HEARING LOSS MURIEL, RT WORSE. FREQ EAR CLOGGING, RINGING. History of Any Multi-Drug Resistant Organisms: None Reported Past Surgical History: Bariatric Surgery, Cholecystectomy, Ear Surgery, Hernia Repair Additional Past Surgical History / Comment(s): Neck (CHIARI MALFORMATION).RIGHT AND LEFT INGUINAL HERNIA, 03-02-15 GASTRIC SLEEVE Past Anesthesia/Blood Transfusion Reactions: No Reported Reaction Past Psychological History: Anxiety, Depression Smoking Status: Never smoker Past Alcohol Use History: Occasional Past Drug Use History: None Reported - Past Family History Mother Family Medical History: Diabetes Mellitus, Hypertension, Sleep Apnea/CPAP/BIPAP Father Family Medical History: Cancer, Hypertension General Exam Limitations: no limitations General appearance: alert, in no apparent distress Head exam: Present: atraumatic, normocephalic, normal inspection Eye exam: Present: normal appearance, PERRL, EOMI. Absent: scleral icterus, conjunctival injection, periorbital swelling ENT exam: Present: normal exam, mucous membranes moist Neck exam: Present: normal inspection. Absent: tenderness, meningismus, lymphadenopathy Respiratory exam: Present: normal lung sounds bilaterally. Absent: respiratory distress, wheezes, rales, rhonchi, stridor Cardiovascular Exam: Present: regular rate, normal rhythm, normal heart sounds. Absent: systolic murmur, diastolic murmur, rubs, gallop, clicks GI/Abdominal exam: Present: soft, normal bowel sounds. Absent: distended, tenderness, guarding, rebound, rigid Extremities exam: Present: normal inspection, full ROM, normal capillary refill. Absent: tenderness, pedal edema, joint swelling, calf tenderness Back exam: Present: normal inspection Neurological exam: Present: alert, oriented X3, CN II-XII intact Psychiatric exam: Present: normal affect, normal mood Skin exam: Present: warm, dry, intact, normal color. Absent: rash Course Vital Signs 06/12/22 14:47 Temperature 98.0 F Pulse Rate 67 Respiratory 20 Rate Blood Pressure 127/82 O2 Sat by Pulse 95 Oximetry - Reevaluation(s) Reevaluation #1: 06/12/22 16:46 Medical records reviewed Reevaluation #2: 06/12/22 16:46 Patient does have recurrent chest pain here in the ER Reevaluation #3: 06/12/22 16:46 Patient informed of results and questions answered Reevaluation #4: 06/12/22 16:46 Was pt. sent in by a medical professional or institution? @ -no Did you speak to anyone other than the patient for history? @ -no Did you review nursing and triage notes? @ -agree Were old charts reviewed? @ -yes Differential Diagnosis? @ -cp EKG interpreted by me (3pts min.)? @ -yes X-rays interpreted by me (1pt min.)? @ -yes CT interpreted by me (1pt min.)? @ -no U/S interpreted by me (1pt. min.)? @ -no What testing was considered but not performed? (CT, X-rays, U/S, labs)? Why? @ -no What meds were considered but not given? Why? @ -no Did you discuss the management of the patient with other professionals? @ -no Did you reconcile home meds? @ -yes Was smoking cessation discussed for >3mins.? @ -no Was critical care preformed (if so, how long)? @ -yes Were there social determinants of health that impacted care today? How? (Homelessness, low income, unemployed, alcoholism, drug addiction, transportation, low edu. Level, literacy, decrease access to med. care, skilled nursing, rehab)? @ -no Was there de-escalation of care discussed even if they declined? (Discuss DNR or withdrawal of care, Hospice)? @ -no What co-morbidities impacted this encounter? (DM, HTN, Smoking, COPD, CAD, Cancer, CVA, Hep., AIDS, mental health diagnosis, sleep apnea, morbid obesity)? @ -no Was patient admitted / discharged? @ -admit Undiagnosed new problem with uncertain prognosis? @ -no Drug Therapy requiring intensive monitoring for toxicity (Heparin, Nitro, Insulin, Cardizem)? @ -no Were any procedures done? @ -no Diagnosis/symptom? @ -cp Acute, or Chronic, or Acute on Chronic? @ -acute Uncomplicated (without systemic symptoms) or Complicated (systemic symptoms)? @ -no Side effects of treatment? @ -no Exacerbation, Progression, or Severe Exacerbation] @ -no Poses a threat to life or bodily function? @ -yes Reevaluation #5: 06/12/22 16:46 Differential Chest Pain: Stable Angina, Unstable Angina, STEMI, NSTEMI Aortic Dissection, Pneumothorax, Musculoskeletal, Esophageal Spasm GERD, Cholecystitis, Pancreatitis, Zoster, this is not meant to be an all-inclusive list. Chest Pain MDM - MDM 51 male to the ER for evaluation. Patient Dese for chest pain, likely anxiety related although it is kind of typical chest pain in nature he does admit to anxiety does have some history of mild anxiety no depression. Patient does have a mild troponin leak and [place] for trending of troponin cardiac observation Critical Care Time Critical Care Time: Yes Total Critical Care Time: 31 Disposition Clinical Impression: Chest pain, Anxiety Disposition: ADMITTED IP TO THIS [facility] Condition: Undetermined Is patient prescribed a controlled substance at d/c from ED?: No Referrals: Fer Barrios MD [Primary Care Provider] - 1-2 days Time of Disposition: 16:50
[2022-06-12] MEDS ORDERED: NALOXONE 0.4 MG/ML 1 ML VIAL IV PRN (16:41)
[2022-06-12] MEDS ORDERED: ONDANSETRON 4 MG/2 ML VIAL IVP PRN (16:41)
[2022-06-12] MEDS ORDERED: LORazepam 2 MG/ML INJ IV PRN (16:44)
[2022-06-12] MEDS ORDERED: NITROGLYCERIN SL TABS 0.4 MG TAB SUBLINGUAL PRN (17:49)
[2022-06-12] MEDS ORDERED: ASPIRIN 325 MG TAB PO STA (17:49)
[2022-06-12] MEDS ORDERED: ALBUTEROL NEBULIZED 2.5 MG/3 ML INHALATION PRN (17:53)
[2022-06-12] MEDS ORDERED: BACLOFEN 10 MG TAB PO PRN (17:53)
--- NOTE | 2022-06-12 17:54 | P.HPIM ---
History of Present Illness H&P Date: 06/12/22 Chief Complaint: chest pain 49-year-old man with medical history of HIV controlled, previously positive stress test, obesity class III, mild persistent asthma presented for chest pain. Patient says that his pain started 5 days ago and feels pressure-like in sensation. It's associated with shortness of breath, especially positional when he sits up. Patient does not describe any swelling in his legs. Patient denies any associated symptoms including diaphoresis, nausea, vomiting, palpitations. He also denies fevers, chills, cough, abdominal pain, dysuria, dyschezia, constipation, diarrhea, numbness/weakness of extremities. In the emergency room, patient is afebrile, 127/82, heart rate 67, 95% on room air. CBC is markable for leukopenia at 3.6, absolute lymphocytes are 1.9. Chemistries show sodium of 136, CO2 of 31, BUN of 21, creatinine of 1.47. Liver function tests are unremarkable. Initial troponin was 0.018. BNP was 79. Magnesium was 2.3. Coags are negative. D-dimer is 0.21. Lipase is 80. Chest x-ray appears to show borderline cardiomegaly with increased pulmonary vascularity in the bases, but no overt signs of heart failure, otherwise clear parenchyma bilaterally. EKG shows normal sinus rhythm with right axis deviation, overall low voltage, S1 Q3 T3 pattern, no signs of ischemia. Case was discussed with the emergency room physician and decision was made to put the patient to observation for chest pain. All Systems reviewed and pertinent positives and negatives noted in HPI, all other symptoms are negative Gen: in no apparent distress, resting comfortably in bed Eyes: PERRL, no scleral injection or icterus HENT: normocephalic, atraumatic, good hearing acuity, moist mucous membranes Neck: no tracheal deviation, full range of motion Resp: good air exchange, breathing comfortably with no accessory muscle use, no tactile fremitus, clear to auscultation bilaterally CVS: good distal perfusion x 4, no pitting edema, regular rate and rhythm without murmurs GI: soft, NTTP, ND, no hepatosplenomegaly : no suprapubic tenderness, no CVAT, marlow catheter not present MSK: no clubbing, no cyanosis, no noted contractures of extremities Skin: no noted rashes, petechiae; temperature of skin is appropriate Neuro: moving all extremities without signs of weakness, CN II-XII intact Psych: cooperative, euthymic mood, insight and judgment intact Labs and imaging as above Assessment: Chest pain, concerning for angina given previously positive stress test Mild persistent asthma Obesity class III, BMI 47 HIV positive status, controlled viral load Plan: Vital signs reviewed and noted in HPI Labs reviewed and noted in HPI Chest x-ray and EKG were personally interpreted as noted in HPI Case was discussed the emergency room physician and decision was made to place the patient observation status for chest pain Cardiology was consulted Start aspirin 325 mg once then 81 mg daily Start atorvastatin 80 mg daily at bedtime Metoprolol was deferred in anticipation of stress test versus angiogram Trended troponins A1c, TSH, lipid panel Echocardiogram ordered Regular diet, nothing by mouth the night Home medications reviewed and reconciled Patient is full code DVT prophylaxis with heparin 5000 units subcu 3 times a day Past Medical History Past Medical History: Asthma, Hearing Disorder / Deafness, Hypertension, Musculoskeletal Disorder, Sleep Apnea/CPAP/BIPAP Additional Past Medical History / Comment(s): HIV positive, STABLE, NO RX REQUIRED. bulging disc in lumbar. CPAP. HERNIA REPAIR. GASTRIC SLEEVE. CONDUCTIVE HEARING LOSS MURIEL, RT WORSE. FREQ EAR CLOGGING, RINGING. History of Any Multi-Drug Resistant Organisms: None Reported Past Surgical History: Bariatric Surgery, Cholecystectomy, Ear Surgery, Hernia Repair Additional Past Surgical History / Comment(s): Neck (CHIARI MALFORMATION).RIGHT AND LEFT INGUINAL HERNIA, 03-02-15 GASTRIC SLEEVE Past Anesthesia/Blood Transfusion Reactions: No Reported Reaction Past Psychological History: Anxiety, Depression Smoking Status: Never smoker Past Alcohol Use History: Occasional Past Drug Use History: None Reported - Past Family History Mother Family Medical History: Diabetes Mellitus, Hypertension, Sleep Apnea/CPAP/BIPAP Father Family Medical History: Cancer, Hypertension Medications and Allergies Home Medications Medication Instructions Recorded Confirmed Type Baclofen 10 mg PO TID PRN 12/02/13 06/12/22 History traMADol HCL [Tramadol HCl] 50 - 100 mg PO TID PRN 12/02/13 06/12/22 History Pregabalin [Lyrica] 150 mg PO TID 03/02/15 06/12/22 History Montelukast Sodium [Singulair] 10 mg PO DAILY 02/15/16 06/12/22 History Albuterol Nebulized [Ventolin 2.5 mg INHALATION RT-TID PRN 06/14/17 06/12/22 History Nebulized] Omeprazole [PriLOSEC] 40 mg PO DAILY 06/14/17 06/12/22 History Albuterol Sulfate [Ventolin HFA] 2 puff INHALATION RT-Q6H PRN 09/04/19 06/12/22 History Doxazosin Mesylate [Cardura] 4 mg PO BID 09/04/19 06/12/22 History Elviteg/Cob/Emtri/Tenof Alafen 1 tab PO DAILY 09/04/19 06/12/22 History [Genvoya Tablet] Betamethasone Dipropionate 1 applic TOPICAL BID 06/12/22 06/12/22 History [Diprolene AF 0.05% Cream] Budesonide/Formoterol Fumarate 2 puff INHALATION RT-BID 06/12/22 06/12/22 History [Symbicort 160-4.5 Mcg Inhaler] Citalopram Hydrobromide [CeleXA] 40 mg PO DAILY 06/12/22 06/12/22 History Ergocalciferol (Vitamin D2) 1,250 mcg PO Q14D 06/12/22 06/12/22 History [Drisdol (50,000 Iu)] Meclizine [Antivert] 12.5 - 25 mg PO BID PRN 06/12/22 06/12/22 History Triamcinolone 0.1% Cream [Kenalog 1 applicatio TOPICAL BID 06/12/22 06/12/22 History 0.1% Cream] Allergies Allergy/AdvReac Type Severity Reaction Status Date / Time bacitracin zinc Allergy Unknown Unknown Verified 06/12/22 15:36 [From Cortisporin] Childhood hydrocortisone Allergy Unknown Unknown Verified 06/12/22 15:36 [From Cortisporin] Childhood neomycin sulfate Allergy Unknown Unknown Verified 06/12/22 15:36 [From Cortisporin] Childhood Penicillins Allergy Unknown Rash/Hives Verified 06/12/22 15:36 polymyxin B Allergy Unknown Unknown Verified 06/12/22 15:36 [From Cortisporin] Childhood pollen extracts Allergy ALLERGY Verified 06/12/22 15:36 SX, RASH ON ARMS cat dander AdvReac Itching Verified 06/12/22 15:36 WHOLE MILK Allergy Rash/Hives Uncoded 06/12/22 14:50 Physical Exam Osteopathic Statement: *. No significant issues noted on an osteopathic structural exam other than those noted in the History and Physical/Consult. Vitals: Vital Signs Temp Pulse Resp BP Pulse Ox 06/12/22 14:47 98.0 F 67 20 127/82 95 Intake and Output 06/12/22 06/12/22 06/12/22 06:59 14:59 22:59 Other: Weight 136.078 kg Results CBC & Chem 7: 06/12/22 15:40 06/12/22 15:40 Labs: Abnormal Lab Results - Last 24 Hours (Table) 06/12/22 06/12/22 Range/Units 15:40 15:40 WBC 3.6 L (3.8-10.6) k/uL Sodium 136 L (137-145) mmol/L Carbon Dioxide 31 H (22-30) mmol/L BUN 21 H (9-20) mg/dL Creatinine 1.47 H (0.66-1.25) mg/dL
[2022-06-12] MEDS: SYMBICORT 160-4.5 MCG INHALER INHALATION SCH (19:27)
[2022-06-12] MEDS: ALBUTEROL NEBULIZED 2.5 MG/3 ML INHALATION PRN (19:28)
[2022-06-12] MEDS: SODIUM CHLORIDE 0.9% 1,000 ML IV SCH (20:10)
[2022-06-12] MEDS: MORPHINE SULFATE 4 MG/ML SYRINGE IV PRN (20:26)
[2022-06-12] MEDS ORDERED: ATORVASTATIN 80 MG TAB PO SCH (21:00)
[2022-06-12] MEDS: PREGABALIN 75 MG CAP PO SCH (21:02)
[2022-06-12] MEDS: DOXAZOSIN 4 MG TAB PO SCH (21:43)
[2022-06-13] MEDS: HEPARIN SODIUM,PORCINE/PF 5,000 UNIT/0.5 ML SYRINGE SQ SCH ×2 (00:19→09:04)
[2022-06-13] MEDS: SODIUM CHLORIDE 0.9% 1,000 ML IV SCH (00:20)
[2022-06-13] MEDS: MORPHINE SULFATE 4 MG/ML SYRINGE IV PRN (02:43)
[2022-06-13 02:49] VITALS: RESP 13
[2022-06-13 06:50] VITALS: BP 135/84; TEMP 98.3
[2022-06-13] MEDS: ALBUTEROL NEBULIZED 2.5 MG/3 ML INHALATION PRN (07:44)
[2022-06-13] MEDS: SYMBICORT 160-4.5 MCG INHALER INHALATION SCH (07:44)
[2022-06-13 08:02] VITALS: PULSE 64
[2022-06-13] MEDS ORDERED: MONTELUKAST 10 MG TAB PO SCH (09:00)
[2022-06-13] MEDS ORDERED: [UNRECOGNIZED DRUG - OTHER] PO SCH (09:00)
[2022-06-13] MEDS ORDERED: ASPIRIN 81 MG PO SCH (09:00)
[2022-06-13] MEDS ORDERED: CITALOPRAM HYDROBROMIDE 20 MG TAB PO SCH (09:00)
[2022-06-13] MEDS ORDERED: PANTOPRAZOLE 40 MG TABLET PO SCH (09:00)
[2022-06-13] MEDS: PREGABALIN 75 MG CAP PO SCH (09:03)
[2022-06-13] MEDS: DOXAZOSIN 4 MG TAB PO SCH (09:04)
[2022-06-13 09:47] LABS: Basophils % (A) 0 %; Eosinophils % (A) 1 %; HCT 41.2 % (39.0-53.0); HGB 13.6 gm/dL (13.0-17.5); Lymphocytes # (A) 2.3 k/uL (1.0-4.8); Lymphocytes % (A) 58 %; MCH 31.6 pg (25.0-35.0); MCHC 33.1 g/dL (31.0-37.0); MCV 95.6 fL (80.0-100.0); Mean Platelet Volume 8.8; Monocytes # (A) 0.2 k/uL (0-1.0); Monocytes % (A) 5 %; Neutrophils # (A) 1.3 k/uL (1.3-7.7); Neutrophils % (A) 33 %; Platelet Count 174 k/uL (150-450); RBC 4.31 m/uL (4.30-5.90); RDW 13.5 % (11.5-15.5)
[2022-06-13 09:59] LABS: African American GFR (CKD) 72 (>60 ml/min/1.73 sqM); Anion Gap 5 mmol/L; Blood Urea Nitrogen 21 mg/dL (9-20); Calcium 8.7 mg/dL (8.4-10.2); Carbon Dioxide 28 mmol/L (22-30); Chloride 103 mmol/L (98-107); Glucose 83 mg/dL (74-99); Magnesium 2.4 mg/dL (1.6-2.3); Non-African American GFR(CKD) 62 (>60 ml/min/1.73 sqM); Potassium 4.4 mmol/L (3.5-5.1); Sodium 136 mmol/L (137-145)
--- NOTE | 2022-06-13 10:37 | P.CRDCN ---
History of Present Illness Consult date: 06/13/22 History of present illness: HISTORY OF PRESENT ILLNESS: This is a 51-year-old male with a past medical history significant for morbid obesity, normal coronary arteries per cardiac catheterization, HIV, depression, GERD, and sleep apnea with CPAP use. Patient follows in the office with Dr. Monk. We have been asked to see the patient in consultation for chest pain. Patient examined at the bedside. Patient states yesterday he was having some p ain in the middle of his chest. He denied any radiation of the pain. Denied any nausea or vomiting. The patient states he has a history of anxiety and he was feeling extremely anxious at the time he was having chest pain. At the time of examination this morning, the patient denies any chest pain or pressure. * EKG reveals sinus mechanism with no signs of acute ischemia * Chest xray chronic changes without evidence for acute pulmonary disease * Laboratory data: WBC 4.0. Hemoglobin 13.6. Platelet count 174. D-dimer 0.21. Sodium 136. Potassium 4.4. BUN 21. Creatinine 1.31. Troponin nega tive 3. TSH 3.560. * Current home cardiac medications include none * Cardiac catheterization history: Patient underwent cardiac catheterization in October 2021 revealing normal filling pressures, no gradient across the valve, normal coronary arteries REVIEW OF SYSTEMS: At the time of my exam: CONSTITUTIONAL: Denies fever or chills. HEENT: Denies blurred vision, vision changes, or eye pain. Denies hemoptysis CARDIOVASCULAR: Denies chest pain. Denies orthopnea. Denies PND. Denies palpitations RESPIRATORY: Denies shortness of breath. GASTROINTESTINAL: Denies abdominal pain. Denies nausea or vomiting. HEMATOLOGIC: Denies bleeding disorders. GENITOURINARY: Denies any blood in urine. SKIN: Denies pruitis. Denies rash. PHYSICAL EXAM: VITAL SIGNS: Reviewed. GENERAL: Well-developed in no acute distress. HEENT: Head is normocephalic. Pupils are equal, round. Sclerae anicteric. Mucous membranes of the mouth are moist. Neck supple. No JVD or thyromegaly LUNGS: Respirations even and unlabored. Lungs essentially clear to auscultation bilaterally. HEART: Regular rate and rhythm. S1 and S2 heard. ABDOMEN: Soft. Nondistended. Nontender. EXTREMITIES: Normal range of motion. No clubbing or cyanosis. Peripheral pulses intact. No lower extremity edema NEUROLOGIC: Awake and alert. Oriented x 3. ASSESSMENT: Chest pain, troponins negative 3 Normal coronary arteries, per cardiac catheterization, October 2021 Anxiety Depression History of HIV History of GERD History of sleep apnea with CPAP use Morbid obesity PLAN: An acute coronary event has been ruled out Add Lipitor 10 mg at night The patient may be discharged home from a cardiac standpoint today and follow-up in the office with Dr. Monk Nurse practitioner note has been reviewed by physician. Signing provider agrees with the documented findings, assessment, and plan of care. Past Medical History Past Medical History: Asthma, Hearing Disorder / Deafness, Hypertension, Musculoskeletal Disorder, Sleep Apnea/CPAP/BIPAP Additional Past Medical History / Comment(s): HIV positive, STABLE, NO RX REQUIRED. bulging disc in lumbar. CPAP. HERNIA REPAIR. GASTRIC SLEEVE. CONDUCTIVE HEARING LOSS MURIEL, RT WORSE. FREQ EAR CLOGGING, RINGING. History of Any Multi-Drug Resistant Organisms: None Reported Past Surgical History: Bariatric Surgery, Cholecystectomy, Ear Surgery, Hernia Repair Additional Past Surgical History / Comment(s): Neck (CHIARI MALFORMATION).RIGHT AND LEFT INGUINAL HERNIA, 03-02-15 GASTRIC SLEEVE Past Anesthesia/Blood Transfusion Reactions: No Reported Reaction Past Psychological History: Anxiety, Depression Smoking Status: Never smoker Past Alcohol Use History: Occasional Past Drug Use History: None Reported - Past Family History Mother Family Medical History: Diabetes Mellitus, Hypertension, Sleep Apnea/CPAP/BIPAP Father Family Medical History: Cancer, Hypertension Medications and Allergies Home Medications Medication Instructions Recorded Confirmed Type Baclofen 10 mg PO TID PRN 12/02/13 06/12/22 History traMADol HCL 50 - 100 mg PO TID PRN 12/02/13 06/12/22 History Pregabalin [Lyrica] 150 mg PO TID 03/02/15 06/12/22 History Montelukast Sodium [Singulair] 10 mg PO DAILY 02/15/16 06/12/22 History Albuterol Nebulized [Ventolin 2.5 mg INHALATION RT-TID PRN 06/14/17 06/12/22 History Nebulized] Omeprazole [PriLOSEC] 40 mg PO DAILY 06/14/17 06/12/22 History Albuterol Sulfate [Ventolin HFA] 2 puff INHALATION RT-Q6H PRN 09/04/19 06/12/22 History Doxazosin Mesylate [Cardura] 4 mg PO BID 09/04/19 06/12/22 History Elviteg/Cob/Emtri/Tenof Alafen 1 tab PO DAILY 09/04/19 06/12/22 History [Genvoya Tablet] Betamethasone Dipropionate 1 applic TOPICAL BID 06/12/22 06/12/22 History [Diprolene AF 0.05% Cream] Budesonide/Formoterol Fumarate 2 puff INHALATION RT-BID 06/12/22 06/12/22 History [Symbicort 160-4.5 Mcg Inhaler] Citalopram Hydrobromide [CeleXA] 40 mg PO DAILY 06/12/22 06/12/22 History Ergocalciferol (Vitamin D2) 1,250 mcg PO Q14D 06/12/22 06/12/22 History [Drisdol (50,000 Iu)] Meclizine [Antivert] 12.5 - 25 mg PO BID PRN 06/12/22 06/12/22 History Triamcinolone 0.1% Cream [Kenalog 1 applicatio TOPICAL BID 06/12/22 06/12/22 History 0.1% Cream] Aspirin 81 mg PO DAILY #30 tab 06/13/22 Rx Atorvastatin [Lipitor] 10 mg PO HS #30 tab 06/13/22 Rx Colchicine 0.6 mg PO DAILY #7 tablet 06/13/22 Rx Allergies Allergy/AdvReac Type Severity Reaction Status Date / Time bacitracin zinc Allergy Unknown Unknown Verified 06/12/22 15:36 [From Cortisporin] Childhood hydrocortisone Allergy Unknown Unknown Verified 06/12/22 15:36 [From Cortisporin] Childhood neomycin sulfate Allergy Unknown Unknown Verified 06/12/22 15:36 [From Cortisporin] Childhood Penicillins Allergy Unknown Rash/Hives Verified 06/12/22 15:36 polymyxin B Allergy Unknown Unknown Verified 06/12/22 15:36 [From Cortisporin] Childhood pollen extracts Allergy ALLERGY Verified 06/12/22 15:36 SX, RASH ON ARMS cat dander AdvReac Itching Verified 06/12/22 15:36 WHOLE MILK Allergy Rash/Hives Uncoded 06/12/22 14:50 Physical Exam Vitals: Vital Signs Temp Pulse Pulse Resp BP BP Pulse Ox 06/13/22 08:02 64 06/13/22 07:49 51 L 06/13/22 07:46 98 06/13/22 06:48 98.3 F 54 L 13 135/84 95 06/13/22 02:00 98.2 F 54 L 13 133/81 97 06/12/22 21:04 97.5 F L 74 16 108/63 95 06/12/22 20:24 71 06/12/22 20:00 69 18 115/71 98 06/12/22 19:29 54 L 06/12/22 17:58 53 L 18 132/85 98 06/12/22 14:47 98.0 F 67 20 127/82 95 Intake and Output 06/12/22 06/13/22 06/13/22 22:59 06:59 14:59 Other: # Voids 0 1 Weight 136.078 kg Results 06/13/22 09:07 06/13/22 09:07 Cardiac Enzymes 06/12/22 06/12/22 06/12/22 Range/Units 15:40 15:40 17:57 AST 21 (17-59) U/L Troponin I 0.018 0.024 (0.000-0.034) ng/mL 06/12/22 Range/Units 22:17 AST (17-59) U/L Troponin I 0.030 (0.000-0.034) ng/mL Coagulation 06/12/22 Range/Units 15:40 PT 10.0 (9.0-12.0) sec APTT 24.7 (22.0-30.0) sec CBC 06/12/22 06/13/22 Range/Units 15:40 09:07 WBC 3.6 L 4.0 (3.8-10.6) k/uL RBC 4.47 4.31 (4.30-5.90) m/uL Hgb 13.9 13.6 (13.0-17.5) gm/dL Hct 42.3 41.2 (39.0-53.0) % Plt Count 184 174 (150-450) k/uL Comprehensive Metabolic Panel 06/12/22 06/13/22 Range/Units 15:40 09:07 Sodium 136 L 136 L (137-145) mmol/L Potassium 4.3 4.4 (3.5-5.1) mmol/L Chloride 100 103 (98-107) mmol/L Carbon Dioxide 31 H 28 (22-30) mmol/L BUN 21 H 21 H (9-20) mg/dL Creatinine 1.47 H 1.31 H (0.66-1.25) mg/dL Glucose 97 83 (74-99) mg/dL Calcium 9.0 8.7 (8.4-10.2) mg/dL AST 21 (17-59) U/L ALT 20 (4-49) U/L Alkaline Phosphatase 55 (38-126) U/L Total Protein 6.8 (6.3-8.2) g/dL Albumin 4.3 (3.5-5.0) g/dL Current Medications Generic Name Dose Route Start Last Admin Trade Name Freq PRN Reason Stop Dose Admin Albuterol Sulfate 2.5 mg 06/12/22 17:53 06/13/22 07:44 Albuterol Nebulized 2.5 Mg/3 Ml INHALATION 2.5 mg RT-TID PRN Administration Shortness Of Breath Albuterol Sulfate 2.5 mg 06/12/22 17:53 Albuterol Nebulized 2.5 Mg/3 Ml INHALATION RT-Q6H PRN Shortness Of Breath Aspirin 81 mg 06/13/22 09:00 06/13/22 09:03 Aspirin 81 Mg PO 81 mg DAILY JUANITO Administration Atorvastatin Calcium 10 mg 06/13/22 21:00 Atorvastatin 10 Mg Tab PO HS JUANITO Baclofen 10 mg 06/12/22 17:53 Baclofen 10 Mg Tab PO TID PRN Muscle Pain Budesonide/Formoterol Fumarate 2 puff 06/12/22 20:00 06/13/22 07:44 Symbicort 160-4.5 Mcg Inhaler INHALATION 2 puff RT-BID JUANITO Administration Citalopram Hydrobromide 40 mg 06/13/22 09:00 06/13/22 09:04 Citalopram Hydrobromide 20 Mg Tab PO 40 mg DAILY JUANITO Administration Doxazosin Mesylate 4 mg 06/12/22 21:00 06/13/22 09:04 Doxazosin 4 Mg Tab PO 4 mg BID JUANITO Administration Ergocalciferol 1,250 mcg 06/17/22 09:00 Ergocalciferol 1,250 Mcg (50,000 Iu) Capsule PO Q14D JUANITO Heparin Sodium (Porcine) 5,000 unit 06/13/22 00:00 06/13/22 09:04 Heparin Sodium,Porcine/Pf 5,000 Unit/0.5 Ml Syringe SQ 5,000 unit Q8HR JUANITO Administration Sodium Chloride 1,000 mls @ 130 mls/hr 06/12/22 16:45 06/13/22 00:20 Saline 0.9% IV Not Given .Q7H42M JUANITO Lorazepam 0.5 mg 06/12/22 16:44 06/13/22 06:00 Lorazepam 2 Mg/Ml Inj IV 0.5 mg Q6HR PRN Administration Anxiety Montelukast Sodium 10 mg 06/13/22 09:00 06/13/22 09:04 Montelukast 10 Mg Tab PO 10 mg DAILY JUANITO Administration Morphine Sulfate 4 mg 06/12/22 16:41 06/13/22 02:43 Morphine Sulfate 4 Mg/Ml Syringe IV 4 mg Q4HR PRN Administration Severe Pain (Scale 7 to 10) Naloxone HCl 0.2 mg 06/12/22 16:41 Naloxone 0.4 Mg/Ml 1 Ml Vial IV Q2M PRN Opioid Reversal Nitroglycerin 0.4 mg 06/12/22 17:49 Nitroglycerin Sl Tabs 0.4 Mg Tab SUBLINGUAL Q5M PRN Chest Pain Patient's Own( 1 tab 06/13/22 09:00 06/13/22 09:12 Elviteg/Cob/Emtri/ PO Not Given Tenof Alafen [ DAILY [facility] Genvoya Tablet] 1 Each Tablet) Ondansetron HCl 4 mg 06/12/22 16:41 Ondansetron 4 Mg/2 Ml Vial IVP Q8HR PRN Nausea And Vomiting Pantoprazole Sodium 40 mg 06/13/22 09:00 06/13/22 09:04 Pantoprazole 40 Mg Tablet PO 40 mg DAILY JUANITO Administration Pregabalin 150 mg 06/12/22 22:00 06/13/22 09:03 Pregabalin 75 Mg Cap PO 150 mg TID JUANITO Administration Intake and Output 06/12/22 06/13/22 06/13/22 22:59 06:59 14:59 Other: # Voids 0 1 Weight 136.078 kg 06/13/22 09:07 06/13/22 09:07
--- NOTE | 2022-06-13 11:20 | P.DS ---
Providers Date of admission: 06/12/22 16:41 Expected date of discharge: 06/13/22 Attending physician: Willie Santamaria MD Consults: 06/12/22 16:41 Consult Physician Routine Consulting Provider: Suzanne Fuentes Consult Reason/Comments: cp Do you want consulting provider notified?: Yes Primary care physician: Fer Barrios MD Hospital Course: Assessment: Chest pain, concerning for angina given previously positive stress test Mild persistent asthma Obesity class III, BMI 47 HIV positive status, controlled viral load 49-year-old man with medical history of HIV controlled, previously positive stress test, obesity class III, mild persistent asthma presented for chest pain. In the emergency room, patient is afebrile, 127/82, heart rate 67, 95% on room air. CBC is markable for leukopenia at 3.6, absolute lymphocytes are 1.9. Chemistries show sodium of 136, CO2 of 31, BUN of 21, creatinine of 1.47. Liver function tests are unremarkable. Initial troponin was 0.018. BNP was 79. Magnesium was 2.3. Coags are negative. D-dimer is 0.21. Lipase is 80. Chest x-ray appears to show borderline cardiomegaly with increased pulmonary vascularity in the bases, but no overt signs of heart failure, otherwise clear parenchyma bilaterally. EKG shows normal sinus rhythm with right axis deviation, overall low voltage, S1 Q3 T3 pattern, no signs of ischemia. Case was discussed with the emergency room physician and decision was made to put the patient to observation for chest pain. Patient was seen by cardiology and an acute coronary event had been ruled out. Patient had Lipitor 10 mg added to his discharge regimen. He was instructed to follow-up with Dr. Monk in the office. I spent 32 minutes coordinating this discharge on 06/13 Gen: in no apparent distress, resting comfortably in bed Eyes: PERRL, no scleral injection or icterus HENT: normocephalic, atraumatic, good hearing acuity, moist mucous membranes Neck: no tracheal deviation, full range of motion Resp: good air exchange, breathing comfortably with no accessory muscle use, no tactile fremitus, clear to auscultation bilaterally CVS: good distal perfusion x 4, no pitting edema, regular rate and rhythm without murmurs GI: soft, NTTP, ND, no hepatosplenomegaly : no suprapubic tenderness, no CVAT, marlow catheter not present MSK: no clubbing, no cyanosis, no noted contractures of extremities Skin: no noted rashes, petechiae; temperature of skin is appropriate Neuro: moving all extremities without signs of weakness, CN II-XII intact Psych: cooperative, euthymic mood, insight and judgment intact Patient Condition at Discharge: Good Plan - Discharge Summary New Discharge Prescriptions: New Colchicine 0.6 mg PO DAILY #7 tablet Atorvastatin [Lipitor] 10 mg PO HS #30 tab Aspirin 81 mg PO DAILY #30 tab Continue Baclofen 10 mg PO TID PRN PRN Reason: Muscle Pain traMADol HCL 50 - 100 mg PO TID PRN PRN Reason: Pain Pregabalin [Lyrica] 150 mg PO TID Montelukast Sodium [Singulair] 10 mg PO DAILY Albuterol Nebulized [Ventolin Nebulized] 2.5 mg INHALATION RT-TID PRN PRN Reason: Shortness Of Breath Omeprazole [PriLOSEC] 40 mg PO DAILY Elviteg/Cob/Emtri/Tenof Alafen [Genvoya Tablet] 1 tab PO DAILY Doxazosin Mesylate [Cardura] 4 mg PO BID Albuterol Sulfate [Ventolin HFA] 2 puff INHALATION RT-Q6H PRN PRN Reason: Shortness Of Breath Betamethasone Dipropionate [Diprolene AF 0.05% Cream] 1 applic TOPICAL BID Triamcinolone 0.1% Cream [Kenalog 0.1% Cream] 1 applicatio TOPICAL BID Citalopram Hydrobromide [CeleXA] 40 mg PO DAILY Meclizine [Antivert] 12.5 - 25 mg PO BID PRN PRN Reason: Vertigo Budesonide/Formoterol Fumarate [Symbicort 160-4.5 Mcg Inhaler] 2 puff INHALATION RT-BID Ergocalciferol (Vitamin D2) [Drisdol (50,000 Iu)] 1,250 mcg PO Q14D Discharge Medication List Baclofen 10 mg PO TID PRN 12/02/13 [History] traMADol HCL 50 - 100 mg PO TID PRN 12/02/13 [History] Pregabalin [Lyrica] 150 mg PO TID 03/02/15 [History] Montelukast Sodium [Singulair] 10 mg PO DAILY 02/15/16 [History] Albuterol Nebulized [Ventolin Nebulized] 2.5 mg INHALATION RT-TID PRN 06/14/17 [History] Omeprazole [PriLOSEC] 40 mg PO DAILY 06/14/17 [History] Albuterol Sulfate [Ventolin HFA] 2 puff INHALATION RT-Q6H PRN 09/04/19 [History] Doxazosin Mesylate [Cardura] 4 mg PO BID 09/04/19 [History] Elviteg/Cob/Emtri/Tenof Alafen [Genvoya Tablet] 1 tab PO DAILY 09/04/19 [History] Betamethasone Dipropionate [Diprolene AF 0.05% Cream] 1 applic TOPICAL BID 06/12/22 [History] Budesonide/Formoterol Fumarate [Symbicort 160-4.5 Mcg Inhaler] 2 puff INHALATION RT-BID 06/12/22 [History] Citalopram Hydrobromide [CeleXA] 40 mg PO DAILY 06/12/22 [History] Ergocalciferol (Vitamin D2) [Drisdol (50,000 Iu)] 1,250 mcg PO Q14D 06/12/22 [History] Meclizine [Antivert] 12.5 - 25 mg PO BID PRN 06/12/22 [History] Triamcinolone 0.1% Cream [Kenalog 0.1% Cream] 1 applicatio TOPICAL BID 06/12/22 [History] Aspirin 81 mg PO DAILY #30 tab 06/13/22 [Rx] Atorvastatin [Lipitor] 10 mg PO HS #30 tab 06/13/22 [Rx] Colchicine 0.6 mg PO DAILY #7 tablet 06/13/22 [Rx] Follow up Appointment(s)/Referral(s): Fer Barrios MD [Primary Care Provider] - 1-2 days Discharge Disposition: HOME SELF-CARE
--- NOTE | 2022-06-13 12:20 | CA ---
Transthoracic Echo Report Name: Yoseph Morillo Age: 51 Gender: M : 1970 Exam Date: 06/13/2022 10:30 Exam Location: [place] [facility] Ht (in): 67 Wt (lb): 300 Ordering Physician: Gabriela Doan MD Attending/Referring Phys: Loom Inspector Winsome Whitehead RDCS Procedure CPT: Indications: Chest pain, pulmonary strain pattern on EKG Cardiac Hx: Technical Quality: Fair Contrast 1: Total Dose (mL): Contrast 2: Total Dose (mL): MEASUREMENTS (Male / Female) Normal Values 2D ECHO LV Diastolic Diameter PLAX 4.2 cm 4.2 - 5.9 / 3.9 - 5.3 cm LV Systolic Diameter PLAX 2.7 cm IVS Diastolic Thickness 1.6 cm 0.6 - 1.0 / 0.6 - 0.9 cm LVPW Diastolic Thickness 1.6 cm 0.6 - 1.0 / 0.6 - 0.9 cm LV Relative Wall Thickness 0.8 RV Internal Dim ED PLAX 3.5 cm LA Systolic Diameter LX 4.0 cm 3.0 - 4.0 / 2.7 - 3.8 cm LA Volume 41.7 cm??? 18 - 58 / 22 - 52 cm??? M-MODE Aortic Root Diameter MM 3.7 cm MV E Point Septal Separation 0.6 cm AV Cusp Separation MM 2.9 cm DOPPLER AV Peak Velocity 143.3 cm/s AV Peak Gradient 8.2 mmHg MV Area PHT 3.0 cm??? Mitral E Point Velocity 82.5 cm/s Mitral A Point Velocity 76.8 cm/s Mitral E to A Ratio 1.1 MV Deceleration Time 249.4 ms MV E' Velocity 6.6 cm/s Mitral E to MV E' Ratio 12.5 FINDINGS Left Ventricle Left ventricular ejection fraction is estimated at 55-60 %. Left ventricular cavity size normal. Moderate concentric left ventricular hypertrophy. Normal left ventricular wall motion. Right Ventricle Mild right ventricular dilatation. No TR unable to estimate the right ventricular systolic pressure. Right Atrium Normal right atrial size. Left Atrium Normal left atrial size. Mitral Valve Structurally normal mitral valve. No mitral stenosis, regurgitation or prolapse. Aortic Valve Trileaflet aortic valve. No aortic valve stenosis or regurgitation. Tricuspid Valve Structurally normal tricuspid valve. No tricuspid regurgitation. Pulmonic Valve Structurally normal pulmonic valve. Trace pulmonic regurgitation. Pericardium Normal pericardium. No pericardial effusion. Aorta Normal size aortic root and proximal ascending aorta. CONCLUSIONS LVH with preserved systolic function Mild RV dilation Previewed by: Dr. Nas Campos MD (Electronically Signed) Final Date: 13 June 2022 12:19
[2022-06-13 17:15] LABS: Chol/HDL Ratio 3.52 Ratio; LDL Cholesterol,Calculated 139.3 mg/dL (0.0-131.0); VLDL Calculation 15.28 mg/dL (5.00-40.00)
[2022-06-13] MEDS ORDERED: ATORVASTATIN 10 MG TAB PO SCH (21:00)
[2022-06-17] MEDS ORDERED: ERGOCALCIFEROL 1,250 MCG (50,000 IU) CAPSULE PO SCH (09:00)
== END 2022-06-13 11:40 | disposition home or self-care (01) ==
LOC: EC 14:16 → 6NMEDSUR 16:41
PROVIDERS: ADMIT Family Medicine; ATTEND Family Medicine
DX: R07.9 Chest pain, unspecified (principal); R94.39 Abnormal result of other cardiovascular function study; J45.30 Mild persistent asthma, uncomplicated; Z21 Asymptomatic human immunodeficiency virus [HIV] infection status; E66.01 Morbid (severe) obesity due to excess calories; Z68.42 Body mass index [BMI] 45.0-49.9, adult; D72.819 Decreased white blood cell count, unspecified; K21.9 Gastro-esophageal reflux disease without esophagitis; G47.30 Sleep apnea, unspecified; F32.A Depression, unspecified; Z98.890 Other specified postprocedural states; F41.9 Anxiety disorder, unspecified; H91.90 Unspecified hearing loss, unspecified ear; I10 Essential (primary) hypertension; M51.26 Other intervertebral disc displacement, lumbar region; Z98.84 Bariatric surgery status; Z90.49 Acquired absence of other specified parts of digestive tract; Z82.49 Family history of ischemic heart disease and other diseases of the circulatory system; Z83.3 Family history of diabetes mellitus; Z80.9 Family history of malignant neoplasm, unspecified; Z83.6 Family history of other diseases of the respiratory system; Z79.82 Long term (current) use of aspirin; Z79.891 Long term (current) use of opiate analgesic; Z79.51 Long term (current) use of inhaled steroids; Z79.899 Other long term (current) drug therapy; Z88.3 Allergy status to other anti-infective agents; Z88.0 Allergy status to penicillin; Z91.09 Other allergy status, other than to drugs and biological substances; Z91.011 Allergy to milk products
CPT/HCPCS: 96376; 96372; 96374; 96375; 99291; 36415; 94640 ×2; 94760; 93005; 93306; 85379; 83880; 80061; 80053; 80048; 84443; 83690; 83735 ×2; 84484; 85025 ×2; 85610; 85730; 83036; 71045; G0378 ×2; J2060 ×2; J2270 ×2; J2405; J1644

== ENCOUNTER → 2022-08-01 | Outpatient (CLI) | payer MEDICARE, OTHER ==
--- NOTE | 2022-08-01 17:01 | P.PN ---
Subjective DATE: 08/01/2022 FOLLOW UP VISIT. Patient with obstructive sleep apnea hypopnea syndrome return to sleep center for follow-up visit. Information from previous visit have been reviewed. Patient is using PAP equipment every night, but recently has significant leak from the mask, air filter alejandra is broken. [place] sleepiness scale is 0, which is normal. I checked information from PAP unit. PAP unit pressure 7-14, average 9.9 cm H2O. Usage is every night but only about 30 % for more then 4 hours, average 3.7 hours per night. Leak is very high 41 l/m, which is in acceptable range. Apnea Hypopnea Index is significantly increased to 19. During previous visit with the same pressure parameters apnea-hypopnea index was 2.5. MEDICATIONS:1. Omeprazole 40 mg once a day 2. Doxazosin 8 mg once a day 3. Citalopram 40 mg twice a day 4. Tramadol 50 mg 3 times a day 5. Meclizine 12.5 mg once a day 6. Albuterol as necessary 7. Singulair 10 mg once a day During physical exam: GENERAL: A pleasant patient without any distress. VITAL SIGNS: BP 88/57, HR 68, RR 18 , weight 311.0, temperature 98.1, oxygen saturation at room air 97 % . HEENT: PERRLA, EOMI.low position of soft palate, Mallapati 3 . NECK: Supple. No JVD. LUNGS: Clear to percussion and to auscultation. Good air exchange. No wheezing or rhonchi. HEART: S1, S2 regular. ABDOMEN: Soft and nontender. Obese EXTREMITIES: No clubbing or cyanosis. TEACHER TUTOR: Awake, alert, and oriented x3. No focal deficit. Impressions: 1. Obstructive sleep apnea-hypopnea syndrome. Patient is using CPAP every night, but short amount of hours per night. Apnea-hypopnea index increased significantly. Significant leak from the mask . 2. Obesity, body mass index 48.7. 3. Asthma. 4. Hypertension. 5. Acid reflux. 6. That problems. 7. Status post cholecystectomy. Plan: 1. Continue using PAP equipment every night for the whole night.Prescription to fix CPAP unit. Patient has to replace his fullface mask immediately. I changed pressure in CPAP unit to pressure 7- 15 2. To change air filter at least 1-2 times per month. 3. PAP unit should stay lower then position of the head. 4. Advised patient to remove all remaining water from humidifier canister daily and make it dry after each usage. Refill canister with fresh distilled water before each usage. 5. Sleep hygiene with regular time in bed for at least 8 hours. 6. Precautions related to driving. No driving if feel any sleepiness. 7. I will maintain prescription for PAP supplies including mask, tube, filters. 8. Follow up visit in 4 months or earlier if patient has any problems. 9. Watching and losing weight. Thank you very much for allowing me to participate in the management of your patient. Efren Torres MD, PhD, FAASM. Diplomat of [place] [employer], Sleep Medicine Board by [place] [employer] [facility] [place]
== END ==
LOC: 3 N SLEEP 16:06
PROVIDERS: ATTEND Internal Medicine
DX: G47.33 Obstructive sleep apnea (adult) (pediatric) (principal); E66.9 Obesity, unspecified; J45.909 Unspecified asthma, uncomplicated; I10 Essential (primary) hypertension; K21.9 Gastro-esophageal reflux disease without esophagitis; Z90.49 Acquired absence of other specified parts of digestive tract; Z99.89 Dependence on other enabling machines and devices; Z88.1 Allergy status to other antibiotic agents; Z88.8 Allergy status to other drugs, medicaments and biological substances; Z88.0 Allergy status to penicillin; Z68.42 Body mass index [BMI] 45.0-49.9, adult; Z91.048 Other nonmedicinal substance allergy status; Z91.011 Allergy to milk products
CPT/HCPCS: 99212

== ENCOUNTER → 2022-10-04 | Outpatient (CLI) | payer OTHER, MEDICARE ==
[2022-10-04 20:43] LABS: ALT 27 U/L (10-49); AST 30 U/L (14-35); Albumin 4.5 d/dL (3.8-4.9); Albumin/Globulin Ratio 2.37 Ratio (1.60-3.17); Alkaline Phosphatase 68 U/L (41-126); BUN/Creat Ratio 8.06 Ratio (12.00-20.00); Blood Urea Nitrogen 13.7 mg/dL (9.0-27.0); Calcium 9.7 mg/dL (8.7-10.3); Carbon Dioxide 28.6 mmol/L (21.6-31.8); Chloride 102 mmol/L (96-109); Globulin 1.9 d/dL (1.6-3.3); Glucose 85 mg/dL (70-110); Potassium 4.5 mmol/L (3.5-5.5); Sodium 141 mmol/L (135-145); Total Bilirubin 0.6 mg/dL (0.3-1.2); Total Protein 6.4 d/dL (6.2-8.2)
[2022-10-04 21:17] LABS: Basophils # (A) 0.05 X 10*3/uL (0.00-0.10); Basophils % (A) 1.2 %; Eosinophils # (A) 0.14 X 10*3/uL (0.04-0.35); Eosinophils % (A) 3.5 %; HCT 42.3 % (39.6-50.0); HGB 13.8 d/dL (13.0-17.0); Lymphocytes # (A) 2.53 X 10*3/uL (0.90-5.00); Lymphocytes % (A) 63.1 %; MCH 30.5 pg (27.0-32.0); MCHC 32.6 d/dL (32.0-37.0); MCV 93.6 FL (80.0-97.0); Mean Platelet Volume 11.8 FL (9.5-12.2); Monocytes # (A) 0.44 X 10*3/uL (0.20-1.00); NRBC Per 100 WBC 0 X 10*3/uL (0.00-0.01); Neutrophils # (A) 0.84 X 10*3/uL (1.80-7.70); Platelet Count 187 X 10*3/uL (140-440); RBC 4.52 X 10*6/uL (4.40-5.60); RDW 12.7 % (11.5-14.5); WBC 4.01 X 10*3/uL (4.50-10.00)
[2022-10-05 12:15] LABS: T4/T8 Ratio (CD4:CD8) 0.9 (1.0-3.7)
== END | disposition home or self-care (01) ==
LOC: LABWHC1 14:28
PROVIDERS: ATTEND Internal Medicine Infectious Disease
DX: B20 Human immunodeficiency virus [HIV] disease (principal)
CPT/HCPCS: 36415; 80053; 85025; 86360; 87536

== ENCOUNTER → 2023-01-28 | Outpatient (CLI) | payer MEDICARE, OTHER ==
--- NOTE | 2023-01-28 16:59 | CT ---
EXAMINATION TYPE: CT lumbar spine wo con CT DLP: 2877 mGycm, Automated exposure control for dose reduction was used. DATE OF EXAM: 01/28/2023 4:05 PM COMPARISON: MRI 01/09/2023. CLINICAL INDICATION:Male, 52 years old with history of M54.50 LOW BACK PAIN; PHH, low back pain, no i njury TECHNIQUE: Multiple axial images were obtained from the midportion of T11 through the sacroiliac hamlet nts. Soft tissue and bone windows in coronal and sagittal planes were obtained and reviewed. Contrast used: none. Oral contrast used: none. FINDINGS: Alignment: There are 5 lumbar type vertebral bodies within normal alignment. Bone: No evidence of fracture is identified. Multilevel degeneration changes with osteophyte formati on disc space narrowing and facet joint arthropathy. Biconcave deformities 2 multiple vertebral kelley s throughout the lumbar spine. Discs: Scattered disc bulging with spinal canal stenosis worse at L3-L4 with at least mild and L2-L3 with at least mild spinal canal stenosis. No foraminal stenosis worse at L3-L4, L4-L5 and L5-S1 with at least mild to moderate bilateral neural foraminal stenosis. Other: Small hiatal hernia is present. IMPRESSION: 1. No evidence for spinal fracture. 2. Multilevel facet arthropathy worse at the lower lumbar spine with mild to moderate bilateral neura l foraminal stenosis at L3-S1
== END | disposition home or self-care (01) ==
LOC: RADCTMAIN 15:45
PROVIDERS: ATTEND Orthopaedic Surgery
DX: M47.26 Other spondylosis with radiculopathy, lumbar region (principal); M99.74 Connective tissue and disc stenosis of intervertebral foramina of sacral region
CPT/HCPCS: 72131

== ENCOUNTER → 2023-04-08 | Outpatient (CLI) | payer MEDICARE, OTHER ==
--- NOTE | 2023-04-08 14:01 | P.PAINPG ---
Objective - Vital Signs Vital signs: Intake & Output 04/07/23 04/08/23 04/08/23 18:59 06:59 18:59 Weight 136.078 kg PQRS Measure Charge Sheet Comment: HISTORY OF PRESENT ILLNESS: A 52 yr old male as a referral from Dr Martins presents today w severe and chronic LBp x 2 yrs secondary to DDD, spondylosis and facet arthropathy without myelopathy for evaluation. Pt states pain level is provoked at 8/10 in intensity, constant, localized in the L lumbar spine, predominantly axial, sharp in character w occasional shooting pain towards the L hip. Pain is provoked by standing/ walking for periods > 15 min. Pain is alleviated by PT x 6 wks in 2020, physician guided exercises/ stretches daily since 2020, medications (Tramadol, Lyrica, Baclofen), topical CBD oil, repositioning and rest. Oswestry axial pain score at 29. PMH: OA, Asthma, [place], HTN, [place], HIV/ AIDS, MDD/ Anxiety PSH: Gastric Sleeve (2014), BL Inguinal Hernia Repair, Cholecystectomy, Ear Surgery SH: Never smoker, Occasional ETOH use, No illicit drug use FH: Mo- NIDDM/ CAD/[place]. Fa- Ca/ CAD. All: See list Meds: See list REVIEW OF ORGAN SYSTEMS: CONSTITUTIONAL: No fevers or chills. No recent weight loss. NEUROLOGICAL: + numbness and tingling along the distal extremities. No seizure disorders or headaches. MUSCULOSKELETAL: + pain PSYCHIATRIC: Denies current depression or suicidal thoughts. Physical Examinations : Constitutional : Cooperative , not in acute distress . Neurologic : Cranial nerve II to XII intact. No focal neurological deficits. Psychiatric : alert & oriented x 3. Matching mood & appropriate affect. Judgment & insight intact. Musculoskeletal : Cervical Spine Motor strength in the deltoid and biceps: Normal right side. Normal Left side Motor strength biceps and the wrist extensors: Normal right side . Normal left side Motor strength in the triceps muscle: Normal right side. Normal left side Deep tendon reflexes: Normal at the biceps. Normal at Brachioradialis. Normal at triceps Vertebral body tenderness to deep palpation over Cervical facet loading test: positive bilaterally Spurling test: positive bilaterally Neck distraction test: positive bilaterally Nicolette sign: positive bilaterally Lumbar spine Motor strength lower extremities ,thigh and legs 5/5 Right side , 5/5 Left side Deep tendon reflexes : Normal Knee Jerk. Normal Ankle Jerk Vertebral body tenderness over Kang Test positive Lumbar facet Loading Test: positive Right / positive Left over L4-L5, L5-S1 Range of motion of the lumbar spine Flexion 30 degrees, extension 10 degrees Straight Leg Raise test: Left/ Right positive at degrees Iftikhar test: positive right / positive left. Severe tenderness over the Sacroiliac joint on the Right / Left sides Gaenslen test: positive bilaterally Seated flexion test: positive bilaterally. Sacral spine : Severe tenderness over the Sacroiliac joint: right side / left side Range of motion: Flexion of the lumbar spine <60 degrees Range of motion: Extension of the lumbar spine <20 degrees Gaenslen's Test positive Iftikhar test: positive right side / left side Thigh Thrust Test Sacral Thrust Test Imaging: CT noncontrast of the lumbar spine from 01/28/23 reviewed Assessment/ Plan : Lumbar DDD Recommendation of L MBB L4-L5, L5-S1 #1. May need a series of injections, up until RFA, for optimal pain relief. Risks, benefits of procedure discussed and patient verbalized understanding. Admits to anti- coagulant use or medical history of diabetes. Protocol for discontinuation/ continuation of medications doreen procedure discussed. Minimal anesthesia provided, if clinically indicated, consisting of Versed and Fentanyl. All questions answered. I have spent greater than 30 minutes on patient care today. Dr Coulter was available by phone for the evaluation of this patient. The time was used to review the medical records including relevant urine studies and Prescription history (MAPs), review of the available imaging, evaluation and examination of the patient, coordination of care with the medical staff and if applicable referring physicians, as well as creation of the medical record PQRS Narrative: Smoking Status Never smoker Home Medications: Ambulatory Orders Baclofen 10 mg PO TID PRN 12/02/13 traMADol HCL 50 - 100 mg PO TID PRN 12/02/13 Pregabalin [Lyrica] 150 mg PO TID 03/02/15 Montelukast Sodium [Singulair] 10 mg PO DAILY 02/15/16 Albuterol Nebulized [Ventolin Nebulized] 2.5 mg INHALATION RT-TID PRN 06/14/17 Omeprazole [PriLOSEC] 40 mg PO DAILY 06/14/17 Albuterol Sulfate [Ventolin HFA] 2 puff INHALATION RT-Q6H PRN 09/04/19 Doxazosin Mesylate [Cardura] 4 mg PO BID 09/04/19 Elviteg/Cob/Emtri/Tenof Alafen [Genvoya Tablet] 1 tab PO DAILY 09/04/19 Betamethasone Dipropionate [Diprolene 0.05% Cream (GEQ)] 1 applic TOPICAL BID 0 06/12/22 Budesonide/Formoterol Fumarate [Symbicort 160-4.5 Mcg Inhaler] 2 puff INHALATION RT-BID 06/12/22 Citalopram Hydrobromide [CeleXA] 40 mg PO DAILY 06/12/22 Ergocalciferol (Vitamin D2) [Drisdol (50,000 Iu)] 1,250 mcg PO Q14D 06/12/22 Meclizine [Antivert] 12.5 - 25 mg PO BID PRN 06/12/22 Triamcinolone 0.1% Cream [Kenalog 0.1% Cream] 1 applicatio TOPICAL BID 06/12/22 Aspirin 81 mg PO DAILY #30 tab 06/13/22 Atorvastatin [Lipitor] 10 mg PO HS #30 tab 06/13/22 Colchicine 0.6 mg PO DAILY #7 tablet 06/13/22 Controlled Substance Measures - Controlled Substance Measures Is patient prescribed a controlled substance at discharge?: No
[2023-04-08 14:09] VITALS: BP 117/76; PULSE 72; RESP 15; TEMP 97.9
== END ==
LOC: PNWHC3 12:54
PROVIDERS: ATTEND Specialist
DX: M48.061 Spinal stenosis, lumbar region without neurogenic claudication (principal); M51.17 Intervertebral disc disorders with radiculopathy, lumbosacral region; M43.16 Spondylolisthesis, lumbar region; M19.90 Unspecified osteoarthritis, unspecified site; J45.909 Unspecified asthma, uncomplicated; I10 Essential (primary) hypertension; G47.33 Obstructive sleep apnea (adult) (pediatric); B20 Human immunodeficiency virus [HIV] disease; F32.9 Major depressive disorder, single episode, unspecified; F41.9 Anxiety disorder, unspecified; Z79.899 Other long term (current) drug therapy; Z79.82 Long term (current) use of aspirin; Z88.0 Allergy status to penicillin; Z88.8 Allergy status to other drugs, medicaments and biological substances; Z88.5 Allergy status to narcotic agent; Z91.048 Other nonmedicinal substance allergy status; Z91.09 Other allergy status, other than to drugs and biological substances; Z91.011 Allergy to milk products; Z88.1 Allergy status to other antibiotic agents
CPT/HCPCS: 99211

== ENCOUNTER → 2023-05-27 | Outpatient (CLI) | payer MEDICARE, OTHER ==
[2023-05-27 13:23] VITALS: BP 138/75; PULSE 59; RESP 15; TEMP 98.1
--- NOTE | 2023-05-27 14:34 | P.PAINPG ---
PQRS Measure Charge Sheet Comment: HISTORY OF PRESENT ILLNESS: A 52 yr old malepresents today w severe and chronic LBp x 2 yrs secondary to DDD, spondylosis and facet arthropathy without myelopathy for evaluation s/p L MBB L3-L5 #1. Pt states he experienced 80% pain relief x 5 d s/p procedure. Pt states pain level is provoked at 7/10 in intensity, constant, localized in the L lumbar spine, predominantly axial, sharp in character w occasional shooting pain towards the L hip. Pain is provoked by standing/ walking for periods > 15 min. Pain is alleviated by PT x 6 wks in 2020, physician guided exercises/ stretches daily since 2020, medications, topical, use of a cane for ambulatory assistance, repositioning and rest. Oswestry axial pain score at 27. Interventional procedures include L MBB L3-L5 x1 Medications include Tramadol, Lyrica, Baclofen, CBD Oil REVIEW OF ORGAN SYSTEMS: CONSTITUTIONAL: No fevers or chills. No recent weight loss. NEUROLOGICAL: + numbness and tingling along the distal extremities. No seizure disorders or headaches. MUSCULOSKELETAL: + pain PSYCHIATRIC: Denies current depression or suicidal thoughts. Physical Examinations : Constitutional : Cooperative , not in acute distress . Neurologic : Cranial nerve II to XII intact. No focal neurological deficits. Psychiatric : alert & oriented x 3. Matching mood & appropriate affect. Judgment & insight intact. Musculoskeletal : Cervical Spine Motor strength in the deltoid and biceps: Normal right side. Normal Left side Motor strength biceps and the wrist extensors: Normal right side . Normal left side Motor strength in the triceps muscle: Normal right side. Normal left side Deep tendon reflexes: Normal at the biceps. Normal at Brachioradialis. Normal at triceps Vertebral body tenderness to deep palpation over Cervical facet loading test: positive bilaterally Spurling test: positive bilaterally Neck distraction test: positive bilaterally Nicolette sign: positive bilaterally Lumbar spine Motor strength lower extremities ,thigh and legs 5/5 Right side , 5/5 Left side Deep tendon reflexes : Normal Knee J erk. Normal Ankle Jerk Vertebral body tenderness over Kang Test positive Lumbar facet Loading Test: positive Right / positive Left over L4-L5, L5-S1 Range of motion of the lumbar spine Flexion 30 degrees, extension 10 degrees Straight Leg Raise test: Left/ Right positive at degrees Iftikhar test: positive right / positive left. Severe tenderness over the Sacroiliac joint on the Right / Left sides Gaenslen test: positive bilaterally Seated flexion test: positive bilaterally. Sacral spine : Severe tenderness over the Sacroiliac joint: right side / left side Range of motion: Flexion of the lumbar spine <60 degrees Range of motion: Extension of the lumbar spine <20 degrees Gaenslen's Test positive Iftikhar test: positive right side / lef t side Thigh Thrust Test Sacral Thrust Test Imaging: CT noncontrast of the lumbar spine from 01/28/23 reviewed Assessment/ Plan : Lumbar DDD Recommendation of L MBB L4-L5, L5-S1 #2. May need a series of injections, up until RFA, for optimal pain relief. Risks, benefits of procedure discussed and patient verbalized understanding. Admits to anti- coagulant use or medical history of diabetes. Protocol for discontinuation/ continuation of medications doreen procedure discussed. Minimal anesthesia provided, if clinically indicated, consisting of Versed and Fentanyl. All questions answered. I have spent greater than 30 minutes on patient care today. Dr Coulter was available by phone for the evaluation of this patient. The time was used to review the medical records including relevant urine studies and Prescription history (MAPs), review of the available imaging, evaluation and examination of the patient, coordination of care with the medical staff and if applicable referring physicians, as well as creation of the medical record PQRS Narrative: Smoking Status Never smoker Hx Alcohol Use (MH) No Home Medications: Ambulatory Orders Baclofen 10 mg PO TID PRN 12/02/13 traMADol HCL 50 - 100 mg PO TID PRN 12/02/13 Pregabalin [Lyrica] 150 mg PO TID 03/02/15 Albuterol Nebulized [Ventolin Nebulized] 2.5 mg INHALATION RT-TID PRN 06/14/17 Omeprazole [PriLOSEC] 40 mg PO DAILY 06/14/17 Albuterol Sulfate [Ventolin HFA] 2 puff INHALATION RT-Q6H PRN 09/04/19 Elviteg/Cob/Emtri/Tenof Alafen [Genvoya Tablet] 1 tab PO DAILY 09/04/19 Betamethasone Dipropionate [Diprolene 0.05% Cream (GEQ)] 1 applic TOPICAL BID 06/12/22 Budesonide/Formoterol Fumarate [Symbicort 160-4.5 Mcg Inhaler] 2 puff INHALATION RT-BID 06/12/22 Citalopram Hydrobromide [CeleXA] 40 mg PO DAILY 06/12/22 Meclizine [Antivert] 12.5 - 25 mg PO BID PRN 06/12/22 Aspirin 81 mg PO DAILY #30 tab 06/13/22 Atorvastatin [Lipitor] 10 mg PO HS #30 tab 06/13/22 Tamsulosin [Flomax] 0.4 mg PO DAILY 05/01/23 Controlled Substance Measures - Controlled Substance Measures Is patient prescribed a controlled substance at discharge?: No
== END ==
LOC: PNWHC3 12:39
PROVIDERS: ATTEND Specialist
DX: M51.37 Other intervertebral disc degeneration, lumbosacral region (principal); Z88.5 Allergy status to narcotic agent; Z88.0 Allergy status to penicillin; Z91.011 Allergy to milk products; Z91.09 Other allergy status, other than to drugs and biological substances; Z88.1 Allergy status to other antibiotic agents; Z91.048 Other nonmedicinal substance allergy status
CPT/HCPCS: 99211

== ENCOUNTER 2023-06-14 11:32 | Day surgery (SDC) | payer MEDICARE, OTHER ==
[2023-06-12 14:38] VITALS: BMI 47.0
[2023-06-14] MEDS: LACTATED RINGERS 1,000 ML IV SCH (11:50)
[2023-06-14] MEDS ORDERED: MIDAZOLAM 2 MG/2 ML VIAL ONE (12:14)
[2023-06-14] MEDS ORDERED: fentaNYL (PF) 50 MCG/ML 2 ML AMP ONE (12:14)
[2023-06-14 12:15] VITALS: TEMP 97
[2023-06-14] MEDS ORDERED: ROPIVACAINE 5MG/ML 20ML VIAL ONE (12:18)
--- NOTE | 2023-06-14 12:27 | P.PCN ---
Date of Procedure: 06/14/23 Procedure(s) Performed: PREOPERATIVE DIAGNOSIS : 1- Lumbar spondylosis with Facet Arthropathy with out myelopathy . 2- Lumber degenerative disc disease POSTOPERATIVE DIAGNOSIS: 1- Lumbar spondylosis with Facet Arthropathy without myelopathy . 2- Lumber degenerative disc disease PROCEDURE: Diagnostic Left L3 , L4 , and L5 medial branch block under fluoroscopy guidance(fluoroscopy images available in the radiology Department ) ( To target the facet joint between Left L4-5 , and L5-S1 )#2nd ANESTHESIA:, Monitored anesthesia care as per anesthesia department. EBL: Minimal COMPLICATION: None PROCEDURE INDICATION: Chronic low back pain secondary to Facet arthropathy unresponsive to conservative treatment. PROCEDURE DESCRIPTION: the patient was seen and identified in the preop holding area , risks and benefits and possible complications of the procedure and alternative were discussed with the patient, and the patient agreed to proceed with the procedure and signed the consent and vital signs monitored during the procedure and fluoroscopy was used to maximize the benefit and accuracy of the needle placement, and sedation was given to decrease patient anxiety, patient was taken to the procedure room and placed in prone position vital signs monitored in the back prepped with chlorhexidine X3 then under strict sterile technique using a right oblique fluoroscopy ,the junction of the transverse process and the superior articulating process of the left L3 , L4 , and L5 vertebra which corresponding to the fluoroscopy image of the eye of the Phil dog on the block side for the medial branches and subsequently , after local infiltration of skin and subcu tissuies with Ropivacaine 0.5 % , one mL at each level ,then 22-gauge 5 inches long Quincke-type needles , 3 needle was used , each one of them placed at the junction of the base of the transverse process and the superior articular process at the appropriate level, and the needle was advanced until the periosteum contacted, needle placement confirmed with AP oblique and lateral view and after appropriate needle placement confirmed, and after negative aspiration for heme and CSF and there was no paresthesia 1-1/2 mL of Ropivacaine 0.5% , then half mL injected at each level after negative aspiration the needle subsequently removed . At the end of the procedure and the needles removed and a bandage applied after the skin was cleaned the cleaning solution patient taken to recovery room in stable condition and monitors in the recovery room for 20-30 minutes and discharged home in stable condition after discharge criteria met and patient will follow up with the pain clinic in 2-4 weeks
[2023-06-14] MEDS: LACTATED RINGERS 1,000 ML IV ONE (12:30)
[2023-06-14 12:58] VITALS: BP 127/85; PULSE 56; RESP 16
--- NOTE | 2023-06-14 13:08 | FL ---
Fluoroscopy INDICATION: Pain FINDINGS: Fluoroscopy time: 11.1 seconds. Total dose area product (DAP) in uGy*m?, mGy*cm? (or similar): 0.31644 Images obtained: 3. IMPRESSION: 1. Documentation of fluoroscopy.
== END 2023-06-14 13:08 | disposition home or self-care (01) ==
LOC: ORPAIN 11:32
PROVIDERS: ATTEND Specialist
DX: M47.816 Spondylosis without myelopathy or radiculopathy, lumbar region (principal); M51.36 Other intervertebral disc degeneration, lumbar region; G89.29 Other chronic pain; I10 Essential (primary) hypertension; J45.909 Unspecified asthma, uncomplicated; G47.33 Obstructive sleep apnea (adult) (pediatric); Z21 Asymptomatic human immunodeficiency virus [HIV] infection status; F41.9 Anxiety disorder, unspecified; F32.A Depression, unspecified; Z79.82 Long term (current) use of aspirin; Z88.0 Allergy status to penicillin; Z88.5 Allergy status to narcotic agent; Z88.1 Allergy status to other antibiotic agents; Z79.51 Long term (current) use of inhaled steroids; Z79.899 Other long term (current) drug therapy
CPT/HCPCS: 64493; 64494; J2250; J3010; J2795

== ENCOUNTER → 2023-07-01 | Outpatient (CLI) | payer MEDICARE, OTHER ==
[2023-07-01 13:51] VITALS: BP 150/72; PULSE 76; RESP 15; TEMP 98.2
--- NOTE | 2023-07-01 14:13 | P.PAINPG ---
PQRS Measure Charge Sheet Comment: HISTORY OF PRESENT ILLNESS: A 52 yr old malepresents today w severe and chronic LBp x 2 yrs secondary to DDD, spondylosis and facet arthropathy without myelopathy for evaluation s/p L MBB L3-L5 #2. Pt states he experienced 80% pain relief x 1-2 days s/p procedure. Pt states pain level is provoked at 6 /10 in intensity, constant, localized in the L lumbar spine, predominantly axial, sharp in character w occasional shooting pain towards the L hip. Pain is provoked by standing/ walking for periods > 15 min. Pain is alleviated by PT x 6 wks in 2020, physician guided exercises/ stretches daily since 2020, medications, topical, use of a cane for ambulatory assistance, repositioning and rest. Oswestry axial pain score at 26. Interventional procedures include L MBB L3-L5 x2 Medications include Tramadol, Lyrica, Baclofen, CBD Oil REVIEW OF ORGAN SYSTEMS: CONSTITUTIONAL: No fevers or chills. No recent weight loss. NEUROLOGICAL: + numbness and tingling along the distal extremities. No seizure disorders or headaches. MUSCULOSKELETAL: + pain PSYCHIATRIC: Denies current depression or suicidal thoughts. Physical Examinations : Constitutional : Cooperative , not in acute distress . Neurologic : Cranial nerve II to XII intact. No focal neurological deficits. Psychiatric : alert & oriented x 3. Matching mood & appropriate affect. Judgment & insight intact. Musculoskeletal : Cervical Spine Motor strength in the deltoid and biceps: Normal right side. Normal Left side Motor strength biceps and the wrist extensors: Normal right side . Normal left side Motor strength in the triceps muscle: Normal right side. Normal left side Deep tendon reflexes: Normal at the biceps. Normal at Brachioradialis. Normal at triceps Vertebral body tenderness to deep palpation over Cervical facet loading test: positive bilaterally Spurling test: positive bilaterally Neck distraction test: positive bilaterally Nicolette sign: positive bilaterally Lumbar spine Motor strength lower extremities ,thigh and legs 5/5 Right side , 5/5 Left side Deep tendon reflexes : Normal Knee Jerk. Normal Ankle Jerk Vertebral body tenderness over Kang Test positive Lumbar facet Loading Test: positive Right / positive Left over L4-L5, L5-S1 Range of motion of the lumbar spine Flexion 30 degrees, extension 10 degrees Straight Leg Raise test: Left/ Right positive at degrees Iftikhar test: positive right / positive left. Severe tenderness over the Sacroiliac joint on the Right / Left sides Gaenslen test: positive bilaterally Seated flexion test: positive bilaterally. Sacral spine : Severe tenderness over the Sacroiliac joint: right side / left side Range of motion: Flexion of the lumbar spine <60 degrees Range of motion: Extension of the lumbar spine <20 degrees Gaenslen's Test positive Iftikhar test: positive right side / left side Thigh Thrust Test Sacral Thrust Test Imaging: CT noncontrast of the lumbar spine from 01/28/23 reviewed Assessment/ Plan : Lumbar DDD Recommendation of L RFA L4-L5, L5-S2. Exhibited optimal pain relief w prior L MBB L3-L5 procedures. Risks, benefits of procedure discussed and patient verbalized understanding. Admits to anti- coagulant use or medical history of diabetes. Protocol for discontinuation/ continuation of medications doreen procedure discussed. Minimal anesthesia provided, if clinically indicated, consisting of Versed and Fentanyl. All questions answered. I have spent greater than 30 minutes on patient care today. Dr Coulter was available by phone for the evaluation of this patient. The time was used to review the medical records including relevant urine studies and Prescription history (MAPs), review of the available imaging, evaluation and examination of t he patient, coordination of care with the medical staff and if applicable referring physicians, as well as creation of the medical record PQRS Narrative: Smoking Status Never smoker Hx Alcohol Use (MH) No Home Medications: Ambulatory Orders Baclofen 10 mg PO TID PRN 12/02/13 traMADol HCL 50 - 100 mg PO TID PRN 12/02/13 Pregabalin [Lyrica] 150 mg PO TID 03/02/15 Albuterol Nebulized [Ventolin Nebulized] 2.5 mg INHALATION RT-TID PRN 06/14/17 Omeprazole [PriLOSEC] 40 mg PO DAILY 06/14/17 Albuterol Sulfate [Ventolin HFA] 2 puff INHALATION RT-Q6H PRN 09/04/19 Elviteg/Cob/Emtri/Tenof Alafen [Genvoya Tablet] 1 tab PO DAILY 09/04/19 Budesonide/Formoterol Fumarate [Symbicort 160-4.5 Mcg Inhaler] 2 puff INHALATION RT-BID 06/12/22 Citalopram Hydrobromide [CeleXA] 40 mg PO DAILY 06/12/22 Meclizine [Antivert] 12.5 - 25 mg PO BID PRN 06/12/22 Aspirin 81 mg PO DAILY #30 tab 06/13/22 Atorvastatin [Lipitor] 10 mg PO HS #30 tab 06/13/22 Tamsulosin [Flomax] 0.4 mg PO DAILY 05/01/23 Controlled Substance Measures - Controlled Substance Measures Is patient prescribed a controlled substance at discharge?: No
== END ==
LOC: PNWHC3 13:13
PROVIDERS: ATTEND Specialist
DX: M51.37 Other intervertebral disc degeneration, lumbosacral region (principal); M47.817 Spondylosis without myelopathy or radiculopathy, lumbosacral region; G89.29 Other chronic pain; Z88.1 Allergy status to other antibiotic agents; Z88.5 Allergy status to narcotic agent; Z88.0 Allergy status to penicillin; Z91.048 Other nonmedicinal substance allergy status; Z91.011 Allergy to milk products; Z91.09 Other allergy status, other than to drugs and biological substances
CPT/HCPCS: 99211

== ENCOUNTER → 2023-07-31 | Outpatient (CLI) | payer MEDICARE, OTHER ==
--- NOTE | 2023-08-04 16:15 | US ---
EXAMINATION TYPE: US kidneys/renal and bladder DATE OF EXAM: 07/31/2023 COMPARISON: Renal ultrasound 01/02/2021 CLINICAL INDICATION: Male, 52 years old with history of N18.31 CHRONIC KIDNEY DISEASE, STAGE 3A; CKD EXAM MEASUREMENTS: Right Kidney: 9.7x4.6x6.8 cm Left Kidney: 10.2x5.9x5.5 cm Post Void Residual Volume: 83.7 mL Right Kidney: mild hydro Left Kidney: dilated renal pelvis Bladder: irregular posterior wall contour Bilateral Jets seen: Yes Normal Post Void Residual: no No nephrolithiasis is seen. No masses are identified. Corticomedullary differentiation is maintained . No significant cortical thinning identified. Mild right hydronephrosis. The urinary bladder is anec hoic with irregular trabeculated posterior wall contour. Bilateral ureteral jets are not seen. IMPRESSION: 1. Mild right hydronephrosis. 2. Trabeculated appearance of the urinary bladder wall with abnormal postvoid residual of 83.7 mL. C orrelate for chronic outlet obstruction versus other etiologies.
== END | disposition home or self-care (01) ==
LOC: RADUSWWP 14:51
PROVIDERS: ATTEND Internal Medicine Nephrology
DX: N13.30 Unspecified hydronephrosis (principal); N32.89 Other specified disorders of bladder; N18.31 Chronic kidney disease, stage 3a
CPT/HCPCS: 76770

== ENCOUNTER → 2023-08-30 | Day surgery (SDC) | payer MEDICARE, OTHER ==
[2023-08-29 10:17] VITALS: BMI 47.0
[~2023-08-30] MED LIST changes: +DEXAMETHASONE SOD PHOSPHATE 10 MG/ML 1 ML VIAL ONE; +MIDAZOLAM 2 MG/2 ML VIAL ONE; -REGADENOSON 0.4 MG/5 ML SYRINGE IV PRN; +ROPIVACAINE 5MG/ML 20ML VIAL ONE; +fentaNYL (PF) 50 MCG/ML 2 ML AMP ONE
[2023-08-30] MEDS: IV FLUID CONTINUATION 1,000 ML IV ONE ×2 (12:52→13:32)
[2023-08-30] MEDS: LACTATED RINGERS 1,000 ML IV SCH (12:58)
[2023-08-30 13:01] VITALS: TEMP 97.3
--- NOTE | 2023-08-30 13:27 | P.PCN ---
Date of Procedure: 08/30/23 Procedure(s) Performed: PREOPERATIVE DIAGNOSIS: 1-Lumbar Spondylosis with Facet Arthropathy without myelopathy. 2- Lumber degenerative disc disease. POSTOPERATIVE DIAGNOSIS: 1- Lumbar Spondylosis with Facet Arthropathy without myelopathy. 2- Lumber degenerative disc disease. PROCEDURES : Left Radiofrequency thermocoagulation, L3 , L4 , L5 medial branch, with fluoroscopic guidance (fluoroscopy images the radiology dept) ( to denervate the facet joint at Left L4-5 ,and L5-S1 levels ). ANESTHESIA: Moderate sedation with intravenous versed 2 mg and fentaneyl 100 mcg, and local infiltration with Ropivacaine 0.5 % . ( Sedation start time 13:10 ,end time 13:23 ) EBL: Minimal PROCEDURE INDICATION: The patient with low back pain secondary to lumbar facet arthropathy who had more than 50% relief of her pain with previous diagnostic lumbar medial branch block with bupivacaine. PROCEDURE DESCRIPTION / TECHNIQUE: The patient was seen and identified in the preoperative area. Risks, benefits, complications, including but not limited to risk of infection ,bleeding , allergic reactions to the medications and no complete pain releife , and alternatives were discussed with the patient, the patient agreed to proceed with the procedure and signed the consent. IV was started. Vital signs remained stable throughout the procedure. Patient was taken to the OR and time out was completed. The patient was placed in the prone position on the procedure table. The lumber area was prepped and draped in the usual sterile fashion. . Vital signs were closely monitored during the procedure .IV sedation was used during the procedure to decrease patients anxiety. Using AP and then oblique fluoroscopy, the ``eye of the Phil dog corresponding to the connection between the superior and transverse articular processes of Left L3, L4, and L5 were identified, marked, and localized with 1% lidocaine. Subsequently, a 18 [id number] radiofrequency cannula with a 10-mm active tip was advanced guided by fluoroscopy to each of the``eyes of the Phil dog at Left L3, L4, and L5. Each site then underwent sensory testing at 50 Hz and 0 to 1 volt and motor testing at 2.5 Hz and 0 to 3 volt with local stimulation, but no radicular symptoms down the legs. Thereafter each sites underwent radiofrequency thermocoagulation at 80 degrees celsius for 90 seconds after injecting 0.5 ml of PF Ropivacaine 1ml, then after the thermocoagulation done , 1 ml of the block solution containing Dexamethasone 20 mg and 3 ml of Ropivacaine 0.5% was injected at the Left L3 , L4 , and L5 , levels after negative aspiration of CSF and blood and with no paresthesias. Cannulas were retracted while injecting lidocaine 1% until the needle is out. . At the end of the procedure, the skin was cleansed and bandages were applied. COMPLICATIONS: No acute complications. DISPOSITION / PLANS: The patient was placed in a supine position and transferred to the recovery area in a stable condition for observation and was discharged from the recovery room after meeting discharge criteria. Home discharge instructions given to the patient by the staff. The patient was reexamined prior to discharge. The patient will schedule a follow up in the clinic in 2-4 weeks.
[2023-08-30 13:41] VITALS: RESP 16
[2023-08-30 13:54] VITALS: BP 106/68; PULSE 66
--- NOTE | 2023-08-30 14:19 | FL ---
EXAMINATION TYPE: FL guided pain mgmt statistic Intraoperative/procedural fluoroscopic services were provided. Total fluoroscopy time is 12.8 seconds with a total of 3 submitted images to PACS. Please s ee the operative/procedural note for further details. DAP: [id number] mGym2
== END ==
LOC: ORPAIN 12:14
PROVIDERS: ATTEND Specialist
DX: M47.816 Spondylosis without myelopathy or radiculopathy, lumbar region (principal); M51.36 Other intervertebral disc degeneration, lumbar region; Z88.0 Allergy status to penicillin; Z88.1 Allergy status to other antibiotic agents; Z88.5 Allergy status to narcotic agent; Z91.011 Allergy to milk products; Z91.09 Other allergy status, other than to drugs and biological substances; Z79.82 Long term (current) use of aspirin; Z79.51 Long term (current) use of inhaled steroids; Z79.899 Other long term (current) drug therapy
CPT/HCPCS: 64635; 64636 ×2; J2250; J1100; J3010; J2795; 99152

== ENCOUNTER → 2023-09-23 | Outpatient (CLI) | payer MEDICARE, OTHER ==
[2023-09-23 12:41] VITALS: BP 116/71; PULSE 63; RESP 16; TEMP 97.6
--- NOTE | 2023-09-23 15:03 | P.PAINPG ---
PQRS Measure Charge Sheet Comment: HISTORY OF PRESENT ILLNESS: A 52 yr old male presents today w severe and chronic LBP x 2 yrs secondary to DDD, spondylosis and facet arthropathy without myelopathy for evaluation s/p L RFA L4-L5/ L5-S1. Pt states he experienced 78 % pain relief s/p procedure. Pt states pain level is provoked at 6 /10 in intensity, constant, localized in the L lumbar spine, predominantly axial, achy in character w occasional shooting pain towards the L hip/ buttock. Pain is provoked by standing/ walking for periods > 15 min. Pain is alleviated by PT x 6 wks in 2020, physician guided exercises/ stretches daily since 2020, medications, topical, use of a cane for ambulatory assistance, repositioning and rest. Also complains of LLE weakness w flexion. Oswestry axial pain score at 24. Interventional procedures include L RFA L4-L5/ L5-S1 (Aug 2023) Medications include Tramadol, Lyrica, Baclofen, CBD Oil REVIEW OF ORGAN SYSTEMS: CONSTITUTIONAL: No fevers or chills. No recent weight loss. NEUROLOGICAL: + numbness and tingling along the distal extremities. No seizure disorders or headaches. MUSCULOSKELETAL: + pain PSYCHIATRIC: Denies current depression or suicidal thoughts. Physical Examinations : Constitutional : Cooperative , not in acute distress . Neurologic : Cranial nerve II to XII intact. No focal neurological deficits. Psychiatric : alert & oriented x 3. Matching mood & appropriate affect. Judgment & insight intact. Musculoskeletal : Cervical Spine Motor strength in the deltoid and biceps: Normal right side. Normal Left side Motor strength biceps and the wrist extensors: Normal right side . Normal left side Motor strength in the triceps muscle: Normal right side. Normal left side Deep tendon reflexes: Normal at the biceps. Normal at Brachioradialis. Normal at triceps Vertebral body tenderness to deep palpation over Cervical facet loading test: positive bilaterally Spurling test: positive bilaterally Neck distraction test: positive bilaterally Nicolette sign: positive bilaterally Lumbar spine Motor strength lower extremities ,thigh and legs 5/5 Right side , 5/5 Left side Deep tendon reflexes : Normal Knee Jerk. Normal Ankle Jerk Vertebral body tenderness over Kang Test positive Lumbar facet Loading Test: positive Right / positive Left over L4-L5, L5-S1 Range of motion of the lumbar spine Flexion 30 degrees, extension 10 degrees Straight Leg Raise test: Left/ Right positive at degrees Iftikhar test: positive right / positive left. Severe tenderness over the Sacroiliac joint on the Right / Left sides Gaenslen test: positive bilaterally Seated flexion test: positive bilaterally. Sacral spine : Severe tenderness over the Sacroiliac joint: right side / left side Range of motion: Flexion of the lumbar spine <60 degrees Range of motion: Extension of the lumbar spine <20 degrees Gaenslen's Test positive Iftikhar test: positive right side / left side Thigh Thrust Test Sacral Thrust Test Imaging: CT noncontrast of the lumbar spine from 01/28/23 reviewed Assessment/ Plan : Lumbar DDD Recommendation of L iliolumbar ligament injection #1. Could benefit from a series of injections for optimal pain relief. Risks, benefits of procedure discussed and patient verbalized understanding. Admits to anti- coagulant use or medical history of diabetes. Protocol for discontinuation/ continuation of medications doreen procedure discussed. All questions answered. I have spent greater than 30 minutes on patient care today. Dr Coulter was available by phone for the evaluation of this patient. The time was used to review the medical records including relevant urine studies and Prescription history (MAPs), review of the available imaging, evaluation and examination of the patient, coordination of care with the medical staff and if applicable referring physicians, as well as creation of the medical record PQRS Narrative: Smoking Status Never smoker Hx Alcohol Use (MH) No Home Medications: Ambulatory Orders Baclofen 10 mg PO TID PRN 12/02/13 traMADol HCL 50 - 100 mg PO TID PRN 12/02/13 Pregabalin [Lyrica] 150 mg PO TID 03/02/15 Albuterol Nebulized [Ventolin Nebulized] 2.5 mg INHALATION RT-TID PRN 06/14/17 Omeprazole [PriLOSEC] 40 mg PO QAM 06/14/17 Albuterol Sulfate [Ventolin HFA] 2 puff INHALATION RT-Q6H PRN 09/04/19 Elviteg/Cob/Emtri/Tenof Alafen [Genvoya Tablet] 1 tab PO QAM 09/04/19 Citalopram Hydrobromide [CeleXA] 40 mg PO QAM 06/12/22 Meclizine [Antivert] 12.5 - 25 mg PO BID PRN 06/12/22 Atorvastatin [Lipitor] 10 mg PO HS #30 tab 06/13/22 Tamsulosin [Flomax] 0.4 mg PO QAM 05/01/23 Aspirin 81 mg PO QAM 08/16/23 Controlled Substance Measures - Controlled Substance Measures Is patient prescribed a controlled substance at discharge?: No
== END ==
LOC: PNWHC3 12:01
PROVIDERS: ATTEND Specialist
DX: M51.37 Other intervertebral disc degeneration, lumbosacral region (principal); Z88.1 Allergy status to other antibiotic agents; Z88.5 Allergy status to narcotic agent; Z88.0 Allergy status to penicillin; Z91.09 Other allergy status, other than to drugs and biological substances; Z91.011 Allergy to milk products; Z91.048 Other nonmedicinal substance allergy status
CPT/HCPCS: 99211

== ENCOUNTER 2023-10-08 11:32 | Day surgery (SDC) | payer MEDICARE, OTHER ==
[2023-10-04 16:08] VITALS: BMI 47.6
[2023-10-08] MEDS ORDERED: DEXAMETHASONE SOD PHOSPHATE 10 MG/ML 1 ML VIAL ONE (13:46)
[2023-10-08] MEDS ORDERED: ROPIVACAINE 5MG/ML 20ML VIAL ONE (13:46)
[2023-10-08] MEDS ORDERED: IOPAMIDOL M200 10 ML VIAL ONE (13:46)
--- NOTE | 2023-12-03 18:19 | FL ---
EXAMINATION TYPE: FL guided pain mgmt statistic COMPARISON: Pre Operative Images if available both CT/MRI or plain film CLINICAL INDICATION: Male, 53 years old with history of LEFT ILEOLUMBAR LIGAMENT INJ PAIN SERVICES; TECHNIQUE: FL guided pain mgmt statistic, multiple fluoroscopic images provided for procedure. Total fluoroscopy time: 7.9 seconds Total submitted images to PACS: 3 DAP: [id number] mGym2 Gycm2 uGym2 cGycm2 FINDINGS: Fluoroscopic images during injection for pain management demonstrate multilevel degeneration changes throughout the spine. No evidence for fracture. No acute process identified. IMPRESSION: 1. No evidence for intraoperative complication. 2. Please see the operative/procedural note for further details. [facility], , 12/03/2023 6:17 PM
== END 2023-10-08 14:15 | disposition home or self-care (01) ==
LOC: ORPAIN 11:32
PROVIDERS: ATTEND Anesthesiology
DX: M47.26 Other spondylosis with radiculopathy, lumbar region (principal); I10 Essential (primary) hypertension; I42.9 Cardiomyopathy, unspecified; Z68.42 Body mass index [BMI] 45.0-49.9, adult; E66.01 Morbid (severe) obesity due to excess calories; G47.33 Obstructive sleep apnea (adult) (pediatric); Z21 Asymptomatic human immunodeficiency virus [HIV] infection status; Z88.0 Allergy status to penicillin; Z88.1 Allergy status to other antibiotic agents; Z88.8 Allergy status to other drugs, medicaments and biological substances; Z91.011 Allergy to milk products; Z91.09 Other allergy status, other than to drugs and biological substances; Z79.82 Long term (current) use of aspirin; Z79.51 Long term (current) use of inhaled steroids; Z79.899 Other long term (current) drug therapy
CPT/HCPCS: 64425

== ENCOUNTER → 2023-10-28 | Outpatient (CLI) | payer MEDICARE, OTHER ==
--- NOTE | 2023-10-28 15:59 | XR ---
Cervical spine. HISTORY: Neck pain and history of Chiari malformation. COMPARISON: None. TECHNIQUE: 6 views of cervical spine were obtained. FINDINGS: The craniovertebral junction relation to prevertebral soft tissues are normal. The cervical vertebral segments are normal in height and alignment and there is no fracture or sublux ation. The disc spaces are well-maintained in height. The neural foramina are widely patent. Facet joints and uncovertebral joints are intact. IMPRESSION: No significant abnormality seen.
== END | disposition home or self-care (01) ==
LOC: RADXRMAIN 15:20
PROVIDERS: ATTEND Internal Medicine
DX: M54.2 Cervicalgia (principal); Q07.00 Arnold-Chiari syndrome without spina bifida or hydrocephalus
CPT/HCPCS: 72050

== ENCOUNTER → 2023-11-14 | Outpatient (CLI) | payer MEDICARE, OTHER ==
[2023-11-14 14:15] VITALS: BP 130/67; PULSE 67; RESP 16
--- NOTE | 2023-11-14 14:32 | P.PAINPG ---
Objective - Vital Signs Vital signs: Vital Signs Temp Pulse 67 11/14/23 14:12 Resp 16 11/14/23 14:12 BP 130/67 11/14/23 14:12 Pulse Ox 97 11/14/23 14:12 FiO2 Intake & Output 11/13/23 11/14/23 11/14/23 18:59 06:59 18:59 Weight 136.078 kg PQRS Measure Charge Sheet Mode of Arrival: Ambulatory Comment: HISTORY OF PRESENT ILLNESS: A 53 yr old male presents today w severe and chronic LBP x 2 yrs secondary to radiculopathy, spondylosis and facet arthropathy without myelopathy for evaluation s/p L iliolumbar ligament injection #1. Pt states he experienced 80 % pain relief s/p procedure. Pt states pain level is provoked at 7 /10 in intensity, constant, localized in the L lumbar spine, predominantly axial, achy in character w occasional shooting pain towards the L hip/ buttock. Pain is provoked by standing/ walking for periods > 15 min. Pain is alleviated by PT x 6 wks in 2020, physician guided exercises/ stretches daily since 2020, medications, topical, use of a cane for ambulatory assistance, repositioning and rest. Interventional procedures include L RFA L4-L5/ L5-S1 (Aug 2023), L iliolumbar ligament injection x1 (Oct 2023) Medications include Tramadol, Lyrica, Baclofen, CBD Oil REVIEW OF ORGAN SYSTEMS: CONSTITUTIONAL: No fevers or chills. No recent weight loss. NEUROLOGICAL: + numbness and tingling along the distal extremities. No seizure disorders or headaches. MUSCULOSKELETAL: + pain PSYCHIATRIC: Denies current depression or suicidal thoughts. Physical Examinations : Constitutional : Cooperative , not in acute distress . Neurologic : Cranial nerve II to XII intact. No focal neurological deficits. Psychiatric : alert & oriented x 3. Matching mood & appropriate affect. Judgment & insight intact. Musculoskeletal : Cervical Spine Motor strength in the deltoid and biceps: Normal right side. Normal Left side Motor strength biceps and the wrist extensors: Normal right side . Normal left side Motor strength in the triceps muscle: Normal right side. Normal left side Deep tendon reflexes: Normal at the biceps. Normal at Brachioradialis. Normal at triceps Vertebral body tenderness to deep palpation over Cervical facet loading test: positive bilaterally Spurling test: positive bilaterally Neck distraction test: positive bilaterally Nicolette sign: positive bilaterally Lumbar spine Motor strength lower extremities ,thigh and legs 5/5 Right side , 5/5 Left side Deep tendon reflexes : Normal Knee Jerk. Normal Ankle Jerk Vertebral body tenderness over L5 Kang Test positive L L4-L5/ L5-S1 Lumbar facet Loading Test: positive Right / positive Left over L4-L5, L5-S1 Range of motion of the lumbar spine Flexion 30 degrees, extension 10 degrees Straight Leg Raise test: Left/ Right positive at degrees Iftikhar test: positive right / positive left. Severe tenderness over the Sacroiliac joint on the Right / Left sides Gaenslen test: positive bilaterally Seated flexion test: positive bilaterally. Sacral spine : Severe tenderness over the Sacroiliac joint: right side / left side Range of motion: Flexion of the lumbar spine <60 degrees Range of motion: Extension of the lumbar spine <20 degrees Gaenslen's Test positive Iftikhar test: positive right side / left side Thigh Thrust Test Sacral Thrust Test Imaging: CT noncontrast of the lumbar spine from 01/28/23 reviewed Assessment/ Plan : Lumbar radiculopathy Recommendation of L TFESI L4-L5/ L5-S1 #1. Risks, benefits of procedure discussed and patient verbalized understanding. Admits to anti- coagulant use or medical history of diabetes. Protocol for discontinuation/ continuation of medications doreen procedure discussed. All questions answered. I have spent greater than 30 minutes on patient care today. Dr Coulter was available by phone for the evaluation of this patient. The time was used to review the medical records including relevant urine studies and Prescription history (MAPs), review of the available imaging, evaluation and examination of the patient, coordination of care with the medical staff and if applicable referring physicians, as well as creation of the medical record - Pain Location Bilateral Lower Back Non-Pharmacological Interventions: Heat, Ice, Physical Therapy, Position/Reposition, Relaxation Technique Pharmacological Interventions: Block, Epidural, PRN Medication, Scheduled Medication, Topical Medication PQRS Narrative: Smoking Status Never smoker Blood Pressure 130/67 Pain Intensity [Bilateral 7 Lower Back] Scale Used Numeric (1 - 10) Hx Alcohol Use (MH) No Home Medications: Ambulatory Orders Baclofen 10 mg PO TID PRN 12/02/13 traMADol HCL 50 - 100 mg PO TID PRN 12/02/13 Pregabalin [Lyrica] 150 mg PO TID 03/02/15 Albuterol Nebulized [Ventolin Nebulized] 2.5 mg INHALATION RT-TID PRN 06/14/17 Omeprazole [PriLOSEC] 40 mg PO QAM 06/14/17 Albuterol Sulfate [Ventolin HFA] 2 puff INHALATION RT-Q6H PRN 09/04/19 Elviteg/Cob/Emtri/Tenof Alafen [Genvoya Tablet] 1 tab PO QAM 09/04/19 Citalopram Hydrobromide [CeleXA] 40 mg PO QAM 06/12/22 Meclizine [Antivert] 12.5 - 25 mg PO BID PRN 06/12/22 Atorvastatin [Lipitor] 10 mg PO HS #30 tab 06/13/22 Tamsulosin [Flomax] 0.4 mg PO QAM 05/01/23 Aspirin 81 mg PO QAM 08/16/23 Controlled Substance Measures - Controlled Substance Measures Is patient prescribed a controlled substance at discharge?: No
== END ==
LOC: PNWHC3 13:59
PROVIDERS: ATTEND Specialist
DX: M54.16 Radiculopathy, lumbar region
CPT/HCPCS: 99211

== ENCOUNTER 2023-12-19 12:30 | Day surgery (SDC) | payer MEDICARE, OTHER ==
[2023-12-16 14:21] VITALS: BMI 47.0
[2023-12-19 13:05] VITALS: TEMP 97.1
[2023-12-19] MEDS ORDERED: LACTATED RINGERS 1,000 ML IV SCH (13:26)
[2023-12-19] MEDS ORDERED: IOPAMIDOL M200 10 ML VIAL ONE (13:32)
[2023-12-19] MEDS ORDERED: DEXAMETHASONE SOD PHOSPHATE 10 MG/ML 1 ML VIAL ONE (13:32)
--- NOTE | 2023-12-19 13:45 | P.PCN ---
Date of Procedure: 12/19/23 Procedure(s) Performed: PREOPERATIVE DIAGNOSIS: 1-Lumbar radiculopathy . 2-lumbar spondylosis with lumbar facet arthropathy without myelopathy POSTOPERATIVE DIAGNOSIS: 1-lumbar radiculopathy. 2-lumbar spondylosis with facet arthropathy without myelopathy PROCEDURE 1. Transforaminal epidural steroid injection under fluoroscopic guidance at left L4-5, L5-S1 level. (Fluoroscopy images stored on file in the radiology Department ) 2. Lumbar epidurogram . ANESTHESIA: Local with 1% lidocaine 4 ml. EBL: Minimal PROCEDURE INDICATION: The patient with low back pain and radiculopathy symptoms unresponsive to conservative treatment. PROCEDURE DESCRIPTION / TECHNIQUE: The patient was seen and identified in the preoperative area. Risks, benefits, complications, and alternatives were discussed with the patient. The patient agreed to proceed with the procedure and signed the consent. IV was started, and vital signs were stable. Patient was taken to the OR and time out was completed. The patient was placed in the prone position on procedure table and a pillow was placed under the abdomen to reduce lumbar lordosis. The lumbosacral area was prepped and draped in the usual sterile fashion. Critical pause was taken. Vital signs were closely monitored during the procedure. Using oblique fluoroscopy, the chin of the ``Phil dog at left L4-5 level was identified, and the skin and deeper tissues just below was localized with 1% lidocaine. Subsequently, a 22-gauge 5-inch spinal needle was advanced under a tunneled view fluoroscopic guidance just underneath the chin of the ``Phil dog at the left L4-5 Under lateral fluoroscopy, the needle was then advanced to the posterior border of the interforaminal space. After negative aspiration of CSF and blood and with no paresthesias, 1 mL Isovue 200 contrast dye was injected excellent epidurogram and outlining of the nerve root Subsequently, 3 mL of block solution containing 10 mg dexamethasone and 2 mL of 0.9% normal saline PF was injected. Needle was removed and the same procedure was repeated at the left L5-S1 level . At the end of the procedure, skin was cleansed, and bandages were applied. COMPLICATIONS:none DISPOSITION / PLANS: The patient was placed in a supine position and transferred to the recovery area in a stable condition for observation. There was no evidence of lower extremity motor or sensory deficit after the procedure. Patient was discharged from the recovery room after meeting discharge criteria. Home discharge instructions were given to the patient by the staff. The patient was reexamined prior to discharge.
[2023-12-19 14:05] VITALS: BP 107/80; PULSE 78; RESP 18
--- NOTE | 2023-12-19 14:56 | FL ---
Intraoperative/procedural fluoroscopic services were provided for pain management. Total fluoroscopy time is 24.0 seconds with a total of 3 submitted images to PACS. Total DAP [id number] mGym2. Please see the operative note for further details. [facility], , 12/19/2023 1:58 PM
== END 2023-12-19 14:13 | disposition home or self-care (01) ==
LOC: ORPAIN 12:30
PROVIDERS: ATTEND Specialist
DX: M54.16 Radiculopathy, lumbar region
CPT/HCPCS: 64483

== ENCOUNTER → 2024-01-01 | Outpatient (CLI) | payer MEDICARE, OTHER ==
[2024-01-01 13:48] VITALS: BP 112/77; PULSE 65; RESP 16
--- NOTE | 2024-01-01 14:39 | P.PAINPG ---
PQRS Measure Charge Sheet Comment: HISTORY OF PRESENT ILLNESS: A 53 yr old male presents today w severe and chronic LBP x 2 yrs secondary to radiculopathy, spondylosis and facet arthropathy without myelopathy for evaluation s/p L TFESI L4-L5/ L5-S1 #1. Pt states he experienced 80 % pain relief x 2 wks s/p procedure. Pt states pain level is provoked at 6 /10 in intensity, intermittent, localized in the L lumbar spine, predominantly axial, achy in character w occasional shooting pain towards the L hip/ LLE. Pain is alleviated w PT x 6 wks which ended in 2020, physician guided stretching regimen daily since 2020, medications, topical, use of a cane for ambulatory assistance, repositioning and rest. Interventional procedures include L RFA L4-L5/ L5-S1 (Aug 2023), L iliolumbar ligament injection x1 (Oct 2023), L TFESI L4-L5/ L5-S1 x1 (Dec 2023) Medications include Tramadol, Lyrica, Baclofen, CBD Oil REVIEW OF ORGAN SYSTEMS: CONSTITUTIONAL: No fevers or chills. No recent weight loss. NEUROLOGICAL: + numbness and tingling along the distal extremities. No seizure disorders or headaches. MUSCULOSKELETAL: + pain PSYCHIATRIC: Denies current depression or suicidal thoughts. Physical Examinations : Constitutional : Cooperative , not in acute distress . Neurologic : Cranial nerve II to XII intact. No focal neurological deficits. Psychiatric : alert & oriented x 3. Matching mood & appropriate affect. Judgment & insight intact. Musculoskeletal : Cervical Spine Motor strength in the deltoid and biceps: Normal right side. Normal Left side Motor strength biceps and the wrist extensors: Normal right side . Normal left side Motor strength in the triceps muscle: Normal right side. Normal left side Deep tendon reflexes: Normal at the biceps. Normal at Brachioradialis. Normal at triceps Vertebral body tenderness to deep palpation over Cervical facet loading test: positive bilaterally Spurling test: positive bilaterally Neck distraction test: positive bilaterally Nicolette sign: positive bilaterally Lumbar spine Motor strength lower extremities ,thigh and legs 5/5 Right side , 5/5 Left side Deep tendon reflexes : Normal Knee Jerk. Normal Ankle Jerk Vertebral body tenderness over L5 Kang Test positive L L4-L5/ L5-S1 Lumbar facet Loading Test: positive Right / positive Left over L4-L5, L5-S1 Range of motion of the lumbar spine Flexion 30 degrees, extension 10 degrees Straight Leg Raise test: Left/ Right positive at degrees Iftikhar test: positive right / positive left. Severe tenderness over the Sacroiliac joint on the Right / Left sides Gaenslen test: positive bilaterally Seated flexion test: positive bilaterally. Sacral spine : Severe tenderness over the Sacroiliac joint: right side / left side Range of motion: Flexion of the lumbar spine <60 degrees Range of motion: Extension of the lumbar spine <20 degrees Gaenslen's Test positive Iftikhar test: positive right side / left side Thigh Thrust Test Sacral Thrust Test Imaging: CT noncontrast of the lumbar spine from 01/28/23 reviewed Assessment/ Plan : Lumbar radiculopathy Recommendation of L TFESI L4-L5/ L5-S1 #2. Risks, benefits of procedure discuss ed and patient verbalized understanding. Admits to anti- coagulant use or medical history of diabetes. Protocol for discontinuation/ continuation of medications doreen procedure discussed. All questions answered. I have spent greater than 30 minutes on patient care today. Dr Coulter was available by phone for the evaluation of this patient. The time was used to review the medical records including relevant urine studies and Prescription history (MAPs), review of the available imaging, evaluation and examination of the patient, coordination of care with the medical staff and if applicable referring physicians, as well as creation of the medical record PQRS Narrative: Smoking Status Never smoker Hx Alcohol Use (MH) No Home Medications: Ambulatory Orders Baclofen 10 mg PO TID PRN 12/02/13 traMADol HCL 50 - 100 mg PO TID PRN 12/02/13 Pregabalin [Lyrica] 150 mg PO TID 03/02/15 Albuterol Nebulized [Ventolin Nebulized] 2.5 mg INHALATION RT-TID PRN 06/14/17 Omeprazole [PriLOSEC] 40 mg PO QAM 06/14/17 Albuterol Sulfate [Ventolin HFA] 2 puff INHALATION RT-Q6H PRN 09/04/19 Elviteg/Cob/Emtri/Tenof Alafen [Genvoya Tablet] 1 tab PO QAM 09/04/19 Citalopram Hydrobromide [CeleXA] 40 mg PO QAM 06/12/22 Meclizine [Antivert] 12.5 - 25 mg PO BID PRN 06/12/22 Atorvastatin [Lipitor] 10 mg PO HS #30 tab 06/13/22 Tamsulosin [Flomax] 0.4 mg PO QAM 05/01/23 Aspirin 81 mg PO QAM 08/16/23 Controlled Substance Measures - Controlled Substance Measures Is patient prescribed a controlled substance at discharge?: No
== END ==
LOC: PNWHC3 13:20
PROVIDERS: ATTEND Specialist
CPT/HCPCS: 99211

== ENCOUNTER 2024-02-04 12:04 | Day surgery (SDC) | payer MEDICARE, OTHER ==
[2024-02-03 14:37] VITALS: BMI 46.6
[~2024-02-04 12:04] MED LIST changes: -DEXAMETHASONE SOD PHOSPHATE 10 MG/ML 1 ML VIAL ONE; +LACTATED RINGERS 1,000 ML IV SCH; -MIDAZOLAM 2 MG/2 ML VIAL ONE; -ROPIVACAINE 5MG/ML 20ML VIAL ONE; -fentaNYL (PF) 50 MCG/ML 2 ML AMP ONE
[2024-02-04 12:52] VITALS: TEMP 98.6
[2024-02-04] MEDS ORDERED: IOPAMIDOL M200 10 ML VIAL ONE (13:45)
[2024-02-04] MEDS ORDERED: DEXAMETHASONE SOD PHOSPHATE 10 MG/ML 1 ML VIAL ONE (13:45)
--- NOTE | 2024-02-04 13:56 | P.PCN ---
Date of Procedure: 02/04/24 Procedure(s) Performed: PREOPERATIVE DIAGNOSIS: 1-Lumbar radiculopathy . 2-lumbar spondylosis with lumbar facet arthropathy without myelopathy POSTOPERATIVE DIAGNOSIS: 1-lumbar radiculopathy. 2-lumbar spondylosis with facet arthropathy without myelopathy PROCEDURE 1. Transforaminal epidural steroid injection under fluoroscopic guidance at left L4-5, L5-S1 level. (Fluoroscopy images stored on file in the radiology Department ) 2. Lumbar epidurogram . ANESTHESIA: Local with 1% lidocaine 4 ml. EBL: Minimal PROCEDURE INDICATION: The patient with low back pain and radiculopathy symptoms unresponsive to conservative treatment. PROCEDURE DESCRIPTION / TECHNIQUE: The patient was seen and identified in the preoperative area. Risks, benefits, complications, and alternatives were discussed with the patient. The patient agreed to proceed with the procedure and signed the consent. IV was started, and vital signs were stable. Patient was taken to the OR and time out was completed. The patient was placed in the prone position on procedure table and a pillow was placed under the abdomen to reduce lumbar lordosis. The lumbosacral area was prepped and draped in the usual sterile fashion. Critical pause was taken. Vital signs were closely monitored during the procedure. Using oblique fluoroscopy, the chin of the ``Phil dog at left L4-5 level was identified, and the skin and deeper tissues just below was localized with 1% lidocaine. Subsequently, a 22-gauge 5-inch spinal needle was advanced under a tunneled view fluoroscopic guidance just underneath the chin of the ``Phil dog at the left L4-5 Under lateral fluoroscopy, the needle was then advanced to the posterior border of the interforaminal space. After negative aspiration of CSF and blood and with no paresthesias, 1 mL Isovue 200 contrast dye was injected excellent epidurogram and outlining of the nerve root Subsequently, 3 mL of block solution containing 10 mg dexamethasone and 2 mL of 0.9% normal saline PF was injected. Needle was removed and the same procedure was repeated at the left L5-S1 level . At the end of the procedure, skin was cleansed, and bandages were applied. COMPLICATIONS:none DISPOSITION / PLANS: The patient was placed in a supine position and transferred to the recovery area in a stable condition for observation. There was no evidence of lower extremity motor or sensory deficit after the procedure. Patient was discharged from the recovery room after meeting discharge criteria. Home discharge instructions were given to the patient by the staff. The patient was reexamined prior to discharge.
--- NOTE | 2024-02-04 14:03 | FL ---
Intraoperative/procedural fluoroscopic services were provided for transforaminal steroid injection at 2 levels. Total fluoroscopy time is 4.3 seconds with a total of 2 submitted images to PACS. Total DA P [id number] mGym2. Please see the operative note for further details. [facility], , 02/04/2024 2:01 PM
[2024-02-04 14:09] VITALS: RESP 16
[2024-02-04 14:21] VITALS: BP 118/78; PULSE 56
== END 2024-02-04 14:25 | disposition home or self-care (01) ==
LOC: ORPAIN 12:04
PROVIDERS: ATTEND Specialist
DX: M47.26 Other spondylosis with radiculopathy, lumbar region (principal)
CPT/HCPCS: 64483; 64484; J1100; Q9966

== ENCOUNTER 2024-03-19 15:39 | Emergency (ER) | payer MEDICARE, OTHER ==
[2024-03-19 15:52] VITALS: TEMP 98.2
[2024-03-19 17:08] VITALS: BP 113/70; PULSE 61; RESP 18
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
== END 2024-03-19 17:24 | disposition home or self-care (01) ==
LOC: EC 15:39
DX: Z04.1 Encounter for examination and observation following transport accident (principal); Z88.0 Allergy status to penicillin; Z88.8 Allergy status to other drugs, medicaments and biological substances; Z91.011 Allergy to milk products; V49.40XA Driver injured in collision with unspecified motor vehicles in traffic accident, initial encounter
CPT/HCPCS: 99283

== ENCOUNTER 2024-06-19 12:27 | Day surgery (SDC) | payer MEDICARE, OTHER ==
[2024-06-17 15:22] VITALS: BMI 43.8
[2024-06-19 14:04] VITALS: RESP 16; TEMP 96.9
[2024-06-19 14:05] LABS: Glucose,Whole Blood 90 mg/dL (70-110)
[2024-06-19] MEDS ORDERED: ROPIVACAINE 5MG/ML 20ML VIAL ONE (15:07)
--- NOTE | 2024-06-19 15:20 | P.PCN ---
Description of Procedure: Preprocedure diagnosis. 1. 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 2. Lumbar degenerative disc disease. Postprocedure diagnosis. As above. Procedure done. Left diagnostic block with local anesthetics at L3, L4 medial branch to target the facet joint L4- 5 with fluoroscopic guidance (fluoroscopy images are available in the radiology department) . Anesthesia. Moderate sedation with intravenous Versed 2 mg and fentanyl and local infiltration with local anesthetics. In OR, continuous pulse ox, EKG, blood pressure and verbal communication was maintained. Sedation time-start end . Blood loss. Minimal. Indication. The patient has low back pain secondary to lumbar facet joint arthropathy. Discussed the procedure and alternative and complications which includes infection, bleeding, nerve damage, paralysis ,aggravation of pain. Patient understands and all questions were answered. Patient iunderstands that if any pain relief occurs it will last for a few hours to a few days maximum. Procedure description. After getting consent patient was taken in the OR in prone position. Back prepped with chlorhexidine and draped in sterile fashion. . With slight oblique fluoroscope, after injecting 5 mL of plain 1% lidocaine subcutaneously, a 22-gauge spinal needle was introduced under tunnel vision of the fluoroscope at the junction of the superior articular process with Left L5 transverse process, junction of the superior articular process with the left L4 transverse process. Negative CSF, negative blood, negative paresthesia. After needle position confirmation by AP and crosstable lateral view, after negative aspiration, half milliliters of solution were injected at each point. Total 1 mL of solution was injected which consists of 0.5% ropivacaine. Spinal needles were taken out and bandages were applied. Disposition. Patient tolerated the procedure well. No complication. Discharged home in stable condition
[2024-06-19 15:40] VITALS: BP 115/79; PULSE 63
--- NOTE | 2024-06-19 18:09 | FL ---
EXAMINATION TYPE: FL guided pain mgmt statistic DATE OF EXAM: 06/19/2024 FLUOROSCOPY LUMBAR FACET BLOCK FL TIME 19.6 SECONDS, DAP [id number], 2 IMAGES SENT INTO PACS, DR Andrea NASSAR [facility], Workstation: [facility], 06/19/2024 6:06 PM
== END 2024-06-19 16:04 | disposition home or self-care (01) ==
LOC: ORPAIN 12:27
PROVIDERS: ATTEND Pain Medicine Interventional Pain Medicine
DX: M47.816 Spondylosis without myelopathy or radiculopathy, lumbar region (principal); M51.369 Other intervertebral disc degeneration, lumbar region without mention of lumbar back pain or lower extremity pain
CPT/HCPCS: 64493; J2795

== ENCOUNTER → 2024-07-16 | Outpatient (CLI) | payer MEDICARE, OTHER ==
[2024-07-16 13:48] VITALS: BP 137/84; PULSE 71; RESP 19; TEMP 97.9
--- NOTE | 2024-07-16 16:03 | P.PAINPG ---
Objective - Vital Signs Vital signs: Vital Signs Temp 97.9 F 07/16/24 13:46 Pulse 71 07/16/24 13:46 Resp 19 07/16/24 13:46 BP 137/84 07/16/24 13:46 Pulse Ox 97 07/16/24 13:46 FiO2 Intake & Output 07/15/24 07/16/24 07/16/24 18:59 06:59 18:59 Weight 121.563 kg PQRS Measure Charge Sheet Mode of Arrival: Ambulatory Comment: HISTORY OF PRESENT ILLNESS: A 53 yr old male presents today w severe and chronic LBP > 10 yrs secondary to radiculopathy, spondylosis and facet arthropathy without myelopathy for evaluation s/p L MBB L4-L5 #1. Pt states he experienced 85 % pain relief x 12 hrs s/p procedure. He underwent a L RFA L4-L5/ L5-S1 in Aug 2023 where he admits he experienced 60% pain relief x 7 mo s/p procedure. Pt states pain level is provoked at 7 /10 in intensity, intermittent, localized in the L lumbar spine, predominantly axial, achy in character without shooting pain. Pain is alleviated w PT x 6 wks which ended in 2020, physician guided stretching regimen daily since 2020, medications, topical, use of a cane for ambulatory assistance, repositioning and rest. Interventional procedures include L RFA L4-L5/ L5-S1 (Aug 2023), L iliolumbar ligament injection x1 (Oct 2023), L TFESI L4-L5/ L5-S1 x2 (Dec 2023, Feb 2024), L MBB L4-L5 x1 Medications include Tramadol, Lyrica, Baclofen, CBD Oil REVIEW OF ORGAN SYSTEMS: CONSTITUTIONAL: No fevers or chills. No recent weight loss. NEUROLOGICAL: + numbness and tingling along the distal extremities. No seizure disorders or headaches. MUSCULOSKELETAL: + pain PSYCHIATRIC: Denies current depression or suicidal thoughts. Physical Examinations : Constitutional : Cooperative , not in acute distress . Neurologic : Cranial nerve II to XII intact. No focal neurological deficits. Psychiatric : alert & oriented x 3. Matching mood & appropriate affect. Judgment & insight intact. Musculoskeletal : Cervical Spine Motor strength in the deltoid and biceps: Normal right side. Normal Left side Motor strength biceps and the wrist extensors: Normal right side . Normal left side Motor strength in the triceps muscle: Normal right side. Normal left side Deep tendon reflexes: Normal at the biceps. Normal at Brachioradialis. Normal at triceps Vertebral body tenderness to deep palpation over Cervical facet loading test: positive bilaterally Spurling test: positive bilaterally Neck distraction test: positive bilaterally Nicolette sign: positive bilaterally Lumbar spine Motor strength lower extremities ,thigh and legs 5/5 Right side , 5/5 Left side Deep tendon reflexes : Normal Knee Jerk. Normal Ankle Jerk Vertebral body tenderness over L5 Kang Test positive L L4-L5/ L5-S1 Lumbar facet Loading Test: positive Right / positive Left over L4-L5, L5-S1 Range of motion of the lumbar spine Flexion 30 degrees, extension 10 degrees Straight Leg Raise test: Left/ Right positive at degrees Iftikhar test: positive right / positive left. Severe tenderness over the Sacroiliac joint on the Right / Left sides Gaenslen test: positive bilaterally Seated flexion test: positive bilaterally. Sacral spine : Severe tenderness over the Sacroiliac joint: right side / left side Range of motion: Flexion of the lumbar spine <60 degrees Range of motion: Extension of the lumbar spine <20 degrees Gaenslen's Test positive Iftikhar test: positive right side / left side Thigh Thrust Test Sacral Thrust Test Imaging: CT non contrast of the lumbar spine from 01/28/23 reviewed Assessment/ Plan : Lumbar radiculopathy Recommendation of L RFA L4-L5/ L5-S1. Would benefit from L paramedian MARYANNE L4-L5 or L TFESI L4-L5/ L5-S1 at a later time. Risks, benefits of procedure discussed and patient verbalized understanding. Admits to anti- coagulant use or medical history of diabetes. Protocol for discontinuation/ continuation of medications doreen procedure discussed. Minimal anesthesia including Fentanyl and Versed if clinically indicated. All questions answered. I have spent greater than 30 minutes on patient care today. Dr Coulter was available by phone for the evaluation of this patient. The time was used to review the medical records including relevant urine studies and Prescription history (MAPs), review of the available imaging, evaluation and examination of the patient, coordination of care with the medical staff and if applicable referring physicians, as well as creation of the medical record PQRS Narrative: Smoking Status Never smoker Blood Pressure 137/84 Pain Intensity [Lower Back] 5 Scale Used Numeric (1 - 10) Hx Alcohol Use (MH) No Home Medications: Ambulatory Orders Baclofen 10 mg PO TID PRN 12/02/13 traMADol HCL 50 - 100 mg PO TID PRN 12/02/13 Pregabalin [Lyrica] 150 mg PO TID 03/02/15 Albuterol Nebulized [Ventolin Nebulized] 2.5 mg INHALATION RT-TID PRN 06/14/17 Omeprazole [PriLOSEC] 40 mg PO QAM 06/14/17 Albuterol Sulfate [Ventolin HFA] 2 puff INHALATION RT-Q6H PRN 09/04/19 Elviteg/Cob/Emtri/Tenof Alafen [Genvoya Tablet] 1 tab PO QAM 09/04/19 Citalopram Hydrobromide [CeleXA] 40 mg PO QAM 06/12/22 Meclizine [Antivert] 12.5 - 25 mg PO BID PRN 06/12/22 Atorvastatin [Lipitor] 10 mg PO HS #30 tab 06/13/22 Tamsulosin [Flomax] 0.4 mg PO QAM 05/01/23 Aspirin 81 mg PO QAM 08/16/23 Montelukast [Singulair] 10 mg PO HS 02/03/24 hydrOXYzine HCL 25 mg PO TID PRN 02/03/24 Semaglutide [Ozempic] 0.25 mg SQ BRADSHAW 05/15/24 Controlled Substance Measures - Controlled Substance Measures Is patient prescribed a controlled substance at discharge?: No
== END ==
LOC: PNWHC3 13:26
PROVIDERS: ATTEND Specialist
DX: M47.26 Other spondylosis with radiculopathy, lumbar region (principal); Z88.0 Allergy status to penicillin; Z91.018 Allergy to other foods; Z91.048 Other nonmedicinal substance allergy status; Z91.011 Allergy to milk products; Z88.2 Allergy status to sulfonamides; Z88.6 Allergy status to analgesic agent
CPT/HCPCS: 99211

== ENCOUNTER → 2024-08-13 | Outpatient (CLI) | payer MEDICARE, OTHER ==
[2024-08-13 14:32] VITALS: BP 123/85; PULSE 71; RESP 16; TEMP 97.4
--- NOTE | 2024-08-13 14:45 | P.PROGSL ---
Subjective DATE: 08/13/2024 FOLLOW UP VISIT. Patient with obstructive sleep apnea hypopnea syndrome return to sleep center for follow-up visit. Information from previous visit have been reviewed. Patient was not able to use CPAP equipment for the last months, because his mask and tube is very old. [place] sleepiness scale is 0. I checked information from PAP unit. PAP unit pressure 7-15, average 8.5 cm H2O. Usage is 115 out of 180 nights. Leak is increased to 32 l/m. Apnea Hypopnea Index is 5.0, which is normal. MEDICATIONS: Omeprazole 40 mg once a day, Januvia 150 mg once a day, montelukast 10 mg once a day, citalopram 40 mg once a day, albuterol inhaler, Ozempic injections. During physical exam: GENERAL: A pleasant patient without any distress. VITAL SIGNS: Please see below, weight is 210.8 lbs. HEENT: PERRLA, EOMI.low position of soft palate, Mallapati 3. NECK: Supple. No JVD. LUNGS: Clear to percussion and to auscultation. Good air exchange. No wheezing or rhonchi. HEART: S1, S2 regular. ABDOMEN: Soft and nontender. Obese EXTREMITIES: No clubbing or cyanosis. MAMMA LOGIST: Awake, alert, and oriented x3. No focal deficit. Impressions: 1. Obstructive sleep apnea-hypopnea syndrome. Patient demonstrated borderline compliance with treatment, benefiting from treatment. 2. Obesity, BMI 51.1. 3. Hypertension. 4. Asthma. 5. Acid reflux. 6. Status post cholecystectomy. Plan: 1. Continue using PAP equipment every night for the whole night. 2. Sleep hygiene with regular time in bed for at least 7.5-8 hours 3. PAP unit should stay lower then position of the head. 4. Advised patient to remove all remaining water from humidifier canister daily and make it dry after each usage. Refill canister with fresh distilled water before each usage. 5. Watching and losing weight. 6. Precautions related to driving. No driving if feel any sleepiness. 7. I will maintain prescription for PAP supplies including mask, tube, filters. 8. Follow up visit in 8 months or earlier if patient has any problems. Thank you very much for allowing me to participate in the management of your patient. Efren Torres MD, PhD, FAASM. Diplomat of [place] [employer], Sleep Medicine Board by [place] [employer] Patient Support Representative of [facility] [place] Objective - Vital Signs Vital Signs: Vital Signs Temp 97.4 F L 08/13/24 14:27 Pulse 71 08/13/24 14:27 Resp 16 08/13/24 14:27 BP 123/85 08/13/24 14:27 Pulse Ox 96 08/13/24 14:27 FiO2 Intake & Output 08/12/24 08/13/24 08/13/24 18:59 06:59 18:59 Weight 121.79 kg Home Medications: Home Medications Medication Instructions Recorded Confirmed Type Baclofen 10 mg PO TID PRN 12/02/13 06/19/24 History traMADol HCL 50 - 100 mg PO TID PRN 12/02/13 06/19/24 History Pregabalin [Lyrica] 150 mg PO TID 03/02/15 06/19/24 History Albuterol Nebulized [Ventolin 2.5 mg INHALATION RT-TID PRN 06/14/17 06/19/24 History Nebulized] Omeprazole [PriLOSEC] 40 mg PO QAM 06/14/17 06/19/24 History Albuterol Sulfate [Ventolin HFA] 2 puff INHALATION RT-Q6H PRN 09/04/19 06/19/24 History Elviteg/Cob/Emtri/Tenof Alafen 1 tab PO QAM 09/04/19 06/19/24 History [Genvoya Tablet] Citalopram Hydrobromide [CeleXA] 40 mg PO QAM 06/12/22 06/19/24 History Meclizine [Antivert] 12.5 - 25 mg PO BID PRN 06/12/22 06/19/24 History Atorvastatin [Lipitor] 10 mg PO HS #30 tab 06/13/22 06/19/24 Rx Tamsulosin [Flomax] 0.4 mg PO QAM 05/01/23 06/19/24 History Aspirin 81 mg PO QAM 08/16/23 06/19/24 History Montelukast [Singulair] 10 mg PO HS 02/03/24 06/19/24 History hydrOXYzine HCL 25 mg PO TID PRN 02/03/24 06/19/24 History Semaglutide [Ozempic] 0.25 mg SQ BRADSHAW 05/15/24 06/19/24 History
== END ==
LOC: 3 N SLEEP 14:04
PROVIDERS: ATTEND Internal Medicine
DX: G47.33 Obstructive sleep apnea (adult) (pediatric) (principal); E66.9 Obesity, unspecified; I10 Essential (primary) hypertension; J45.909 Unspecified asthma, uncomplicated; K21.9 Gastro-esophageal reflux disease without esophagitis; Z90.49 Acquired absence of other specified parts of digestive tract; Z68.43 Body mass index [BMI] 50.0-59.9, adult; Z88.0 Allergy status to penicillin; Z91.011 Allergy to milk products; Z91.048 Other nonmedicinal substance allergy status; Z88.8 Allergy status to other drugs, medicaments and biological substances
CPT/HCPCS: 99212

== ENCOUNTER → 2024-08-18 | Outpatient (CLI) | payer MEDICARE, OTHER ==
--- NOTE | 2024-08-18 16:04 | XR ---
EXAMINATION TYPE: XR Hip Bilateral and AP pelvis DATE OF EXAM: 08/18/2024 3:44 PM COMPARISON: none CLINICAL INDICATION: Male, 53 years old with history of M25.559 PAIN IN UNSPECIFIED HIP; PHH, pain TECHNIQUE: XR Hip Bilateral and AP pelvis; hip was examined in the frontal and lateral projections an d a AP pelvis. FINDINGS: No evidence for acute process, joint dislocation or significant soft tissue swelling. IMPRESSION: No acute process. [facility], , 08/18/2024 4:02 PM
== END | disposition home or self-care (01) ==
LOC: RADXRMAIN 15:25
DX: M25.559 Pain in unspecified hip (principal)
CPT/HCPCS: 73521